=== PATIENT | female | born 1945 | race Caucasian/White ===

== ENCOUNTER 2017-01-22 10:55 | Inpatient (IN) ==
[2017-01-22] MEDS ORDERED: SODIUM CHLORIDE 0.9% 500 ML IV STA (11:14)
[2017-01-22] MEDS ORDERED: cefTRIAXone 1,000 MG in SODIUM CHLORIDE 0.9% 100 ML IV STA (11:14)
[2017-01-22] MEDS ORDERED: cefTRIAXone 1,000 MG VIAL ONE (11:47)
[2017-01-22 12:44] LABS: Basophils % 0.3 % (0.0-0.8); Hematocrit 32.3 VOL% (35.7-47.0); Hemoglobin 10.5 GM/DL (12.0-16.0); Immature Granulocytes % 0.5 %; Immature Granulocytes Absolute 0.02 #; Lymphocytes # 0.3 10*3/uL (1.4-4.0); Lymphocytes % 8.8 % (21.3-54.2); Mean Corpuscular HGB Conc 32.5 GM/DL (32-36); Mean Corpuscular Hemoglobin 31 PG (27-34); Mean Corpuscular Volume 94.7 FL (87-102); Monocytes # 0.4 10*3/uL (0.11-0.8); Monocytes % 11.2 % (1.7-12.7); Neutrophils % 79.2 % (38.7-73.9); Platelet Count 163 T/CUMM (130-400); Red Blood Count 3.41 MC/CUMM (3.8-5.5); Red Cell Distribution Width 12.8 % (9.3-17.3); White Blood Count 3.8 T/CUMM (4-12)
[2017-01-22] MEDS ORDERED: ACETAMINOPHEN 500 MG TABLET PO STA (12:45)
[2017-01-22] MEDS ORDERED: ACETAMINOPHEN 500 MG TABLET ONE (12:46)
[2017-01-22] MEDS ORDERED: ONDANSETRON 4 MG/2 ML VIAL IV PRN (12:47)
[2017-01-22] MEDS ORDERED: ACETAMINOPHEN 325 MG TABLET PO PRN (12:47)
[2017-01-22 12:55] LABS: Calcium 8.1 MG/DL (8.5-10.1); Osmolality,Calculated 292.4 MOS/KG (273-304); Potassium 4.6 MMOL/L (3.5-5.1)
[2017-01-22] MEDS ORDERED: ENOXAPARIN 40 MG/0.4 ML SYRINGE SUBCUT SCH (13:00)
[2017-01-22] MEDS: SODIUM CHLORIDE 0.9% 1,000 ML IV SCH (17:00)
[2017-01-22] MEDS ORDERED: NITROGLYCERIN SL 0.4 MG TABLET SL PRN (17:52)
[2017-01-22] MEDS: TOLTERODINE 2 MG TABLET PO SCH (21:16)
[2017-01-22] MEDS: DIVALPROEX ER 500 MG TABLET PO SCH (21:17)
[2017-01-22] MEDS: DOCUSATE SODIUM 100 MG CAPSULE PO SCH (21:17)
[2017-01-22] MEDS: CLORAZEPATE 3.75 MG TABLET PO SCH (21:17)
[2017-01-22] MEDS: ALLOPURINOL 100 MG TABLET PO SCH (21:53)
[2017-01-23] MEDS: SODIUM CHLORIDE 0.9% 1,000 ML IV SCH ×4 (02:48→21:00)
[2017-01-23 04:49] LABS: Basophils % 0.8 % (0.0-0.8); Eosinophils % 0.8 % (0.00-10.9); Hematocrit 26.4 VOL% (35.7-47.0); Hemoglobin 8.7 GM/DL (12.0-16.0); Immature Granulocytes % 0.6 %; Immature Granulocytes Absolute 0.02 #; Lymphocytes # 0.6 10*3/uL (1.4-4.0); Lymphocytes % 16.7 % (21.3-54.2); Mean Corpuscular Hemoglobin 31 PG (27-34); Mean Platelet Volume 10.6 FL (9.6-12.0); Monocytes # 0.6 10*3/uL (0.11-0.8); Monocytes % 17.2 % (1.7-12.7); NRBC # 0.02 10*3/uL; Neutrophils # 2.3 10*3/uL (1.4-7.4); Neutrophils % 63.9 % (38.7-73.9); Platelet Count 146 T/CUMM (130-400); Red Blood Count 2.81 MC/CUMM (3.8-5.5); Red Cell Distribution Width 12.6 % (9.3-17.3); White Blood Count 3.5 T/CUMM (4-12)
[2017-01-23 05:44] LABS: Calcium 7.7 MG/DL (8.5-10.1); Osmolality,Calculated 292.3 MOS/KG (273-304); Potassium 4.3 MMOL/L (3.5-5.1)
[2017-01-23 05:50] LABS: Eosinophils 1 % (0-10); Hypochromasia 1+; Lymphocytes 24 % (20-55); Microcytosis 1+; Platelet Estimate Adequate; Segmented Neutrophils 65 % (50-85); Total Cells Counted 100
[2017-01-23] MEDS ORDERED: LEVOFLOXACIN INJ 500 MG in PREMIX 1 EACH IV ONE (07:30)
[2017-01-23] MEDS: PANTOPRAZOLE 40 MG TABLET PO SCH (09:54)
[2017-01-23] MEDS: CLORAZEPATE 3.75 MG TABLET PO SCH ×2 (09:54→21:47)
[2017-01-23] MEDS: DILTIAZEM CD 240 MG CAPSULE PO SCH (09:54)
[2017-01-23] MEDS: TOLTERODINE 2 MG TABLET PO SCH ×2 (09:55→21:48)
[2017-01-23] MEDS: DOCUSATE SODIUM 100 MG CAPSULE PO SCH ×2 (09:55→21:48)
[2017-01-23] MEDS: CLOPIDOGREL 75 MG TABLET PO SCH (09:55)
[2017-01-23] MEDS: ENOXAPARIN 30 MG/0.3 ML SYRINGE SUBCUT SCH (14:30)
[2017-01-23] MEDS: cefTRIAXone 1,000 MG in SYRINGE 1 EACH IV SCH (14:31)
[2017-01-23] MEDS: DIVALPROEX ER 500 MG TABLET PO SCH (21:48)
[2017-01-23] MEDS: ALLOPURINOL 100 MG TABLET PO SCH (21:48)
[2017-01-24] MEDS: SODIUM CHLORIDE 0.9% 1,000 ML IV SCH ×3 (03:43→13:00)
[2017-01-24 05:49] LABS: Basophils % 0.6 % (0.0-0.8); Eosinophils # 0.1 10*3/uL (0.0-0.87); Eosinophils % 2.2 % (0.00-10.9); Hematocrit 27.1 VOL% (35.7-47.0); Hemoglobin 8.8 GM/DL (12.0-16.0); Immature Granulocytes % 0.6 %; Immature Granulocytes Absolute 0.02 #; Lymphocytes # 0.7 10*3/uL (1.4-4.0); Lymphocytes % 22.2 % (21.3-54.2); Mean Corpuscular HGB Conc 32.5 GM/DL (32-36); Mean Corpuscular Hemoglobin 31 PG (27-34); Mean Corpuscular Volume 95.4 FL (87-102); Mean Platelet Volume 10.4 FL (9.6-12.0); Monocytes # 0.4 10*3/uL (0.11-0.8); Neutrophils # 1.9 10*3/uL (1.4-7.4); Neutrophils % 60.4 % (38.7-73.9); Platelet Count 162 T/CUMM (130-400); Red Blood Count 2.84 MC/CUMM (3.8-5.5); Red Cell Distribution Width 12.7 % (9.3-17.3); White Blood Count 3.2 T/CUMM (4-12)
[2017-01-24 06:08] LABS: Calcium 7.9 MG/DL (8.5-10.1); Osmolality,Calculated 290.1 MOS/KG (273-304); Potassium 4.6 MMOL/L (3.5-5.1)
[2017-01-24] MEDS ORDERED: LEVOFLOXACIN INJ 250 MG in PREMIX 1 EACH IV SCH (09:00)
[2017-01-24] MEDS: CLOPIDOGREL 75 MG TABLET PO SCH (09:48)
[2017-01-24] MEDS: DOCUSATE SODIUM 100 MG CAPSULE PO SCH ×2 (09:48→20:27)
[2017-01-24] MEDS: DILTIAZEM CD 240 MG CAPSULE PO SCH (09:48)
[2017-01-24] MEDS: CLORAZEPATE 3.75 MG TABLET PO SCH ×2 (09:48→20:27)
[2017-01-24] MEDS: PANTOPRAZOLE 40 MG TABLET PO SCH (09:48)
[2017-01-24] MEDS: TOLTERODINE 2 MG TABLET PO SCH ×2 (09:51→20:27)
[2017-01-24] MEDS: ENOXAPARIN 30 MG/0.3 ML SYRINGE SUBCUT SCH (15:08)
[2017-01-24] MEDS: cefTRIAXone 1,000 MG in SYRINGE 1 EACH IV SCH (15:08)
[2017-01-24] MEDS: TRIAMTERENE/HCTZ 37.5-25 MG TABLET PO SCH (17:58)
[2017-01-24] MEDS: ALLOPURINOL 100 MG TABLET PO SCH (20:27)
[2017-01-24] MEDS: DIVALPROEX ER 500 MG TABLET PO SCH (20:28)
[2017-01-25] MEDS: SODIUM CHLORIDE 0.9% 1,000 ML IV SCH ×2 (01:59→16:29)
[2017-01-25] MEDS: CLORAZEPATE 3.75 MG TABLET PO SCH ×2 (09:55→20:55)
[2017-01-25] MEDS: DILTIAZEM CD 240 MG CAPSULE PO SCH (09:55)
[2017-01-25] MEDS: ENOXAPARIN 30 MG/0.3 ML SYRINGE SUBCUT SCH (09:55)
[2017-01-25] MEDS: TRIAMTERENE/HCTZ 37.5-25 MG TABLET PO SCH (09:55)
[2017-01-25] MEDS: CLOPIDOGREL 75 MG TABLET PO SCH (09:55)
[2017-01-25] MEDS: PANTOPRAZOLE 40 MG TABLET PO SCH (09:55)
[2017-01-25] MEDS: DOCUSATE SODIUM 100 MG CAPSULE PO SCH ×2 (09:55→20:55)
[2017-01-25] MEDS: cefTRIAXone 1,000 MG in SYRINGE 1 EACH IV SCH (09:56)
[2017-01-25] MEDS: TOLTERODINE 2 MG TABLET PO SCH ×2 (09:59→20:55)
[2017-01-25] MEDS: ALLOPURINOL 100 MG TABLET PO SCH (20:55)
[2017-01-25] MEDS: DIVALPROEX ER 500 MG TABLET PO SCH (20:55)
[2017-01-26] MEDS: SODIUM CHLORIDE 0.9% 1,000 ML IV SCH ×2 (06:00→20:35)
[2017-01-26] MEDS: cefTRIAXone 1,000 MG in SYRINGE 1 EACH IV SCH (08:52)
[2017-01-26] MEDS: CLORAZEPATE 3.75 MG TABLET PO SCH ×2 (08:54→20:58)
[2017-01-26] MEDS: DOCUSATE SODIUM 100 MG CAPSULE PO SCH ×2 (08:54→20:58)
[2017-01-26] MEDS: CLOPIDOGREL 75 MG TABLET PO SCH (08:54)
[2017-01-26] MEDS: TOLTERODINE 2 MG TABLET PO SCH ×2 (08:54→20:58)
[2017-01-26] MEDS: DILTIAZEM CD 240 MG CAPSULE PO SCH (08:55)
[2017-01-26] MEDS: TRIAMTERENE/HCTZ 37.5-25 MG TABLET PO SCH (08:55)
[2017-01-26] MEDS: PANTOPRAZOLE 40 MG TABLET PO SCH (08:56)
[2017-01-26] MEDS: ENOXAPARIN 30 MG/0.3 ML SYRINGE SUBCUT SCH (08:56)
[2017-01-26] MEDS: ALLOPURINOL 100 MG TABLET PO SCH (20:58)
[2017-01-26] MEDS: DIVALPROEX ER 500 MG TABLET PO SCH (20:59)
[2017-01-27] MEDS: cefTRIAXone 1,000 MG in SYRINGE 1 EACH IV SCH (09:19)
[2017-01-27] MEDS: TOLTERODINE 2 MG TABLET PO SCH (09:19)
[2017-01-27] MEDS: DOCUSATE SODIUM 100 MG CAPSULE PO SCH (09:20)
[2017-01-27] MEDS: PANTOPRAZOLE 40 MG TABLET PO SCH (09:20)
[2017-01-27] MEDS: CLOPIDOGREL 75 MG TABLET PO SCH (09:20)
[2017-01-27] MEDS: DILTIAZEM CD 240 MG CAPSULE PO SCH (09:20)
[2017-01-27] MEDS: TRIAMTERENE/HCTZ 37.5-25 MG TABLET PO SCH (09:20)
[2017-01-27] MEDS: CLORAZEPATE 3.75 MG TABLET PO SCH (09:20)
[2017-01-27] MEDS: ENOXAPARIN 30 MG/0.3 ML SYRINGE SUBCUT SCH (09:20)
[2017-01-27 12:19] VITALS: BP 183/84
== END 2017-01-27 12:07 | disposition home or self-care (01) | DRG 872 ==
LOC: N.EDINP 10:55 → N.ED 10:55 → N.2E 18:45
PROVIDERS: ADMIT Family Medicine; ATTEND Family Medicine

== ENCOUNTER 2017-03-01 19:03 | Inpatient (IN) ==
[2017-03-01] MEDS ORDERED: SODIUM CHLORIDE 0.9% 1,000 ML IV STA (21:43)
[2017-03-01] MEDS ORDERED: HYDROmorphone 2 MG/1 ML VIAL IV STA (21:43)
[2017-03-01] MEDS ORDERED: ONDANSETRON 4 MG/2 ML VIAL IV STA (21:43)
[2017-03-01] MEDS ORDERED: cefTRIAXone 1,000 MG in SODIUM CHLORIDE 0.9% 100 ML IV STA (21:50)
[2017-03-01 21:54] LABS: Basophils % 0.4 % (0.0-0.8); Eosinophils # 0.1 10*3/uL (0.0-0.87); Eosinophils % 1.5 % (0.00-10.9); Hematocrit 32.1 VOL% (35.7-47.0); Hemoglobin 10.3 GM/DL (12.0-16.0); Immature Granulocytes % 0.6 %; Immature Granulocytes Absolute 0.03 #; Lymphocytes # 1.2 10*3/uL (1.4-4.0); Lymphocytes % 25.5 % (21.3-54.2); Mean Corpuscular HGB Conc 32.1 GM/DL (32-36); Mean Corpuscular Hemoglobin 31 PG (27-34); Mean Platelet Volume 10.8 FL (9.6-12.0); Monocytes # 0.3 10*3/uL (0.11-0.8); Monocytes % 6.1 % (1.7-12.7); Neutrophils # 3.1 10*3/uL (1.4-7.4); Neutrophils % 65.9 % (38.7-73.9); Platelet Count 219 T/CUMM (130-400); Red Blood Count 3.38 MC/CUMM (3.8-5.5); Red Cell Distribution Width 13.2 % (9.3-17.3); White Blood Count 4.7 T/CUMM (4-12)
[2017-03-01 22:17] LABS: Lactic Acid 0.7 MMOL/L (0.4-2.0)
[2017-03-01 22:18] LABS: Alanine Aminotransferase 10 U/L (13-56); Albumin 3.4 G/DL (3.4-5.0); Alkaline Phosphatase 59 U/L (45-117); Amylase 50 U/L (25-115); Aspartate Amino Transferase 19 U/L (0-37); Bilirubin,Total < 0.39 MG/DL (0.2-1.0); Blood Urea Nitrogen 53 MG/DL (7-18); Calcium 8.6 MG/DL (8.5-10.1); Glucose 95 MG/DL (74-106); Magnesium 2.3 MG/DL (1.8-2.4); Osmolality,Calculated 294.3 MOS/KG (273-304); Potassium 5.3 MMOL/L (3.5-5.1); Sodium 141 MMOL/L (136-145); Total Protein 6.7 G/DL (6.4-8.3); Troponin I Only < 0.015 NG/ML (0.00-0.045)
[2017-03-01 22:28] LABS: Apearance,Urine CLOUDY (Clear); Bilirubin,Urine Negative (Negative); Blood, Urine Negative (Negative); Glucose,Urine (UA) Negative (Negative); Ketones,Urine Negative (Negative); Nitrite,Urine Negative (Negative); Protein,Urine 30 MG/DL; Squamous Epithelial Cell,Urine Occasional /HPF (0-10); Urine Color Yellow (Yellow); Urine Specific Gravity 1.013 (1.001-1.035); Urine Urobilinogen < 2.0 EU/DL (0.2-1.0); WBC,Urine 574 /HPF (0-6)
[2017-03-01] MEDS ORDERED: cefTRIAXone 1,000 MG VIAL ONE (22:43)
[2017-03-01] MEDS ORDERED: ONDANSETRON 4 MG/2 ML VIAL ONE (22:43)
[2017-03-01] MEDS ORDERED: HYDROmorphone 2 MG/1 ML VIAL ONE (22:44)
[2017-03-02] MEDS ORDERED: ONDANSETRON 4 MG/2 ML VIAL ONE (00:23)
[2017-03-02] MEDS ORDERED: HYDROmorphone 2 MG/1 ML VIAL IV ONE (00:23)
[2017-03-02] MEDS ORDERED: ONDANSETRON 4 MG/2 ML VIAL IV STA (00:38)
[2017-03-02] MEDS ORDERED: ONDANSETRON 4 MG/2 ML VIAL IV PRN (01:00)
[2017-03-02] MEDS ORDERED: HYDROmorphone 2 MG/1 ML VIAL IV PRN (01:00)
[2017-03-02] MEDS ORDERED: ACETAMINOPHEN 325 MG TABLET PO PRN (01:00)
[2017-03-02] MEDS: SODIUM CHLORIDE 0.9% 1,000 ML IV SCH ×3 (01:53→19:24)
[2017-03-02] MEDS: cefTRIAXone 1,000 MG in SYRINGE 1 EACH IV SCH (01:56)
[2017-03-02] MEDS ORDERED: LEVOFLOXACIN INJ 250 MG in PREMIX 1 EACH IV SCH (02:00)
[2017-03-02 07:12] LABS: Eosinophils # 0.1 10*3/uL (0.0-0.87); Eosinophils % 2.8 % (0.00-10.9); Hematocrit 26.8 VOL% (35.7-47.0); Hemoglobin 8.5 GM/DL (12.0-16.0); Immature Granulocytes % 0.3 %; Immature Granulocytes Absolute 0.01 #; Lymphocytes # 0.9 10*3/uL (1.4-4.0); Lymphocytes % 27.8 % (21.3-54.2); Mean Corpuscular HGB Conc 31.7 GM/DL (32-36); Mean Corpuscular Hemoglobin 31 PG (27-34); Mean Corpuscular Volume 96.4 FL (87-102); Mean Platelet Volume 10.9 FL (9.6-12.0); Monocytes # 0.4 10*3/uL (0.11-0.8); Monocytes % 11.3 % (1.7-12.7); Neutrophils # 1.9 10*3/uL (1.4-7.4); Neutrophils % 57.8 % (38.7-73.9); Platelet Count 164 T/CUMM (130-400); Red Blood Count 2.78 MC/CUMM (3.8-5.5); Red Cell Distribution Width 13.2 % (9.3-17.3); White Blood Count 3.2 T/CUMM (4-12)
[2017-03-02 07:31] LABS: Alanine Aminotransferase < 9 U/L (13-56); Albumin 2.5 G/DL (3.4-5.0); Alkaline Phosphatase 44 U/L (45-117); Aspartate Amino Transferase 10 U/L (0-37); Blood Urea Nitrogen 49 MG/DL (7-18); Calcium 7.5 MG/DL (8.5-10.1); Glucose 73 MG/DL (74-106); Magnesium 2.2 MG/DL (1.8-2.4); Osmolality,Calculated 297.8 MOS/KG (273-304); Potassium 4.4 MMOL/L (3.5-5.1); Sodium 144 MMOL/L (136-145); Total Protein 5.3 G/DL (6.4-8.3)
[2017-03-02] MEDS ORDERED: ONDANSETRON 4 MG TABLET PO PRN (07:44)
[2017-03-02] MEDS ORDERED: NITROGLYCERIN SL 0.4 MG TABLET SL PRN (07:44)
[2017-03-02] MEDS: DILTIAZEM CD 240 MG CAPSULE PO SCH (08:24)
[2017-03-02] MEDS: TRIAMTERENE/HCTZ 37.5-25 MG TABLET PO SCH (08:25)
[2017-03-02] MEDS: CLORAZEPATE 3.75 MG TABLET PO SCH ×2 (08:25→21:46)
[2017-03-02] MEDS: CLOPIDOGREL 75 MG TABLET PO SCH (08:25)
[2017-03-02] MEDS: FLUoxetine 20 MG CAPSULE PO SCH (08:25)
[2017-03-02] MEDS: DOCUSATE SODIUM 100 MG CAPSULE PO SCH ×2 (08:25→21:45)
[2017-03-02] MEDS: ALLOPURINOL 100 MG TABLET PO SCH (08:25)
[2017-03-02] MEDS: PANTOPRAZOLE 40 MG TABLET PO SCH (08:25)
[2017-03-02] MEDS ORDERED: FENOFIBRATE 48 MG TABLET PO SCH (21:00)
[2017-03-02] MEDS ORDERED: DIVALPROEX ER 500 MG TABLET PO SCH (21:00)
[2017-03-03] MEDS: SODIUM CHLORIDE 0.9% 1,000 ML IV SCH (03:22)
[2017-03-03] MEDS: CLOPIDOGREL 75 MG TABLET PO SCH (09:58)
[2017-03-03] MEDS: DILTIAZEM CD 240 MG CAPSULE PO SCH (09:58)
[2017-03-03] MEDS: CLORAZEPATE 3.75 MG TABLET PO SCH (09:58)
[2017-03-03] MEDS: FLUoxetine 20 MG CAPSULE PO SCH (09:58)
[2017-03-03] MEDS: TRIAMTERENE/HCTZ 37.5-25 MG TABLET PO SCH (09:58)
[2017-03-03] MEDS: cefTRIAXone 1,000 MG in SYRINGE 1 EACH IV SCH (09:58)
[2017-03-03] MEDS: ALLOPURINOL 100 MG TABLET PO SCH (09:58)
[2017-03-03] MEDS: PANTOPRAZOLE 40 MG TABLET PO SCH (09:58)
[2017-03-03] MEDS: DOCUSATE SODIUM 100 MG CAPSULE PO SCH (09:58)
[2017-03-03 13:39] VITALS: BP 166/89
== END 2017-03-03 10:45 | disposition home or self-care (01) | DRG 690 ==
LOC: N.ED 19:03 → N.EDINP 23:39 → N.2E 03-02 00:13
PROVIDERS: ADMIT Family Medicine; ATTEND Family Medicine

== ENCOUNTER 2017-05-13 12:29 | Observation (INO) ==
[2017-05-13] MEDS ORDERED: ASPIRIN 325 MG TABLET PO STA (13:44)
[2017-05-13] MEDS ORDERED: ASPIRIN 325 MG TABLET ONE (14:14)
[2017-05-13 14:44] LABS: Alanine Aminotransferase 11 U/L (13-56); Albumin 3.3 G/DL (3.4-5.0); Alkaline Phosphatase 63 U/L (45-117); Aspartate Amino Transferase 18 U/L (0-37); Bilirubin,Total < 0.39 MG/DL (0.2-1.0); Blood Urea Nitrogen 56 MG/DL (7-18); Calcium 8.4 MG/DL (8.5-10.1); Glucose 79 MG/DL (74-106); Osmolality,Calculated 293.4 MOS/KG (273-304); Sodium 140 MMOL/L (136-145); Total Protein 6.7 G/DL (6.4-8.3)
[2017-05-13] MEDS ORDERED: ENOXAPARIN 30 MG/0.3 ML SYRINGE SUBCUT STA (15:16)
[2017-05-13 15:18] LABS: Basophils % 0.7 % (0.0-0.8); Eosinophils # 0.1 10*3/uL (0.0-0.87); Eosinophils % 2.4 % (0.00-10.9); Hematocrit 32.8 VOL% (35.7-47.0); Hemoglobin 10.6 GM/DL (12.0-16.0); Immature Granulocytes % 0.5 %; Immature Granulocytes Absolute 0.02 #; Lymphocytes # 1.2 10*3/uL (1.4-4.0); Mean Corpuscular HGB Conc 32.3 GM/DL (32-36); Mean Corpuscular Hemoglobin 31 PG (27-34); Mean Corpuscular Volume 96.5 FL (87-102); Mean Platelet Volume 10.7 FL (9.6-12.0); Monocytes # 0.4 10*3/uL (0.11-0.8); Monocytes % 8.9 % (1.7-12.7); Neutrophils # 2.5 10*3/uL (1.4-7.4); Neutrophils % 59.5 % (38.7-73.9); Platelet Count 190 T/CUMM (130-400); Red Cell Distribution Width 13.6 % (9.3-17.3); White Blood Count 4.1 T/CUMM (4-12)
[2017-05-13] MEDS ORDERED: ENOXAPARIN 60 MG/0.6 ML SYRINGE ONE (15:22)
[2017-05-13] MEDS ORDERED: ONDANSETRON 4 MG/2 ML VIAL IV PRN (16:38)
[2017-05-13] MEDS ORDERED: ACETAMINOPHEN 325 MG TABLET PO PRN (16:38)
[2017-05-13] MEDS ORDERED: NITROGLYCERIN SL 0.4 MG TABLET SL STA (16:38)
[2017-05-13 20:30] LABS: Apearance,Urine CLEAR (Clear); Bilirubin,Urine Negative (Negative); Blood, Urine Small mg/dL (Negative); Glucose,Urine (UA) 50 mg/dL (Negative); Ketones,Urine Negative (Negative); Mucus,Urine Occasional /LPF (Occasional); Nitrite,Urine Negative (Negative); Protein,Urine 100 MG/DL; RBC,Urine 1 /HPF (0-4); Squamous Epithelial Cell,Urine Occasional /HPF (0-10); Urine Color Straw (Yellow); Urine Urobilinogen < 2.0 EU/DL (0.2-1.0); WBC,Urine <1 /HPF (0-6)
[2017-05-13] MEDS: DOCUSATE SODIUM 100 MG CAPSULE PO SCH (21:15)
[2017-05-14 05:40] LABS: Calcium 8.2 MG/DL (8.5-10.1); Osmolality,Calculated 297.1 MOS/KG (273-304); Potassium 5.3 MMOL/L (3.5-5.1); Risk Ratio 2.77; Thyroid Stimulating Hormone 4.2 uIU/ml (0.358-3.74); VLDL CHOLESTEROL 15.6 MG/DL
[2017-05-14 05:50] LABS: Basophils % 0.8 % (0.0-0.8); Eosinophils # 0.1 10*3/uL (0.0-0.87); Eosinophils % 4.6 % (0.00-10.9); Hematocrit 29.3 VOL% (35.7-47.0); Hemoglobin 9.6 GM/DL (12.0-16.0); Immature Granulocytes % 0.4 %; Immature Granulocytes Absolute 0.01 #; Mean Corpuscular HGB Conc 32.8 GM/DL (32-36); Mean Corpuscular Hemoglobin 31 PG (27-34); Mean Corpuscular Volume 94.5 FL (87-102); Mean Platelet Volume 11.4 FL (9.6-12.0); Monocytes # 0.3 10*3/uL (0.11-0.8); Monocytes % 10.8 % (1.7-12.7); Neutrophils # 1.2 10*3/uL (1.4-7.4); Neutrophils % 44.4 % (38.7-73.9); Platelet Count 177 T/CUMM (130-400); Red Cell Distribution Width 13.4 % (9.3-17.3); White Blood Count 2.6 T/CUMM (4-12)
[2017-05-14 06:21] LABS: Hypochromasia 1+; Ovalocytes Slight
[2017-05-14 06:22] LABS: Platelet Estimate Normal
[2017-05-14] MEDS ORDERED: AZELASTINE NASAL 137 MCG/SPRAY 30 ML BOTTLE BOTH NARES PRN (08:59)
[2017-05-14] MEDS ORDERED: ONDANSETRON 4 MG TABLET PO PRN (08:59)
[2017-05-14] MEDS ORDERED: NITROGLYCERIN SL 0.4 MG TABLET SL PRN (08:59)
[2017-05-14] MEDS ORDERED: ALLOPURINOL 100 MG TABLET PO SCH (09:00)
[2017-05-14] MEDS ORDERED: DILTIAZEM CD 240 MG CAPSULE PO SCH (09:00)
[2017-05-14] MEDS ORDERED: CLORAZEPATE 3.75 MG TABLET PO SCH (09:00)
[2017-05-14] MEDS ORDERED: FLUoxetine 20 MG CAPSULE PO SCH (09:00)
[2017-05-14] MEDS ORDERED: TRIAMTERENE/HCTZ 37.5-25 MG TABLET PO SCH (09:00)
[2017-05-14] MEDS ORDERED: CLOPIDOGREL 75 MG TABLET PO SCH (09:00)
[2017-05-14] MEDS ORDERED: PANTOPRAZOLE 40 MG TABLET PO SCH (09:00)
[2017-05-14] MEDS: DOCUSATE SODIUM 100 MG CAPSULE PO SCH (10:14)
[2017-05-14 16:18] VITALS: BP 178/75
[2017-05-14] MEDS ORDERED: FENOFIBRATE 48 MG TABLET PO SCH (21:00)
[2017-05-14] MEDS ORDERED: DIVALPROEX ER 500 MG TABLET PO SCH (21:00)
== END 2017-05-14 18:27 | disposition home or self-care (01) ==
LOC: N.EDINP 12:29 → N.ED 12:29 → N.TELEN 16:35
PROVIDERS: ADMIT Family Medicine; ATTEND Family Medicine

== ENCOUNTER 2017-07-22 14:10 | Observation (INO) ==
[2017-07-22] MEDS ORDERED: ACETAMINOPHEN 325 MG TABLET PO PRN (14:51)
[2017-07-22] MEDS ORDERED: ONDANSETRON 4 MG/2 ML VIAL IV PRN (14:51)
[2017-07-22] MEDS ORDERED: SODIUM CHLORIDE 0.45% 1,000 ML IV SCH (15:00)
[2017-07-22 15:38] LABS: Basophils % 0.3 % (0.0-0.8); Eosinophils % 0.8 % (0.00-10.9); Hematocrit 32.4 VOL% (35.7-47.0); Hemoglobin 10.4 GM/DL (12.0-16.0); Immature Granulocytes % 0.5 %; Immature Granulocytes Absolute 0.02 #; Lymphocytes % 25.6 % (21.3-54.2); Mean Corpuscular HGB Conc 32.1 GM/DL (32-36); Mean Corpuscular Hemoglobin 31 PG (27-34); Mean Corpuscular Volume 95.6 FL (87-102); Mean Platelet Volume 10.8 FL (9.6-12.0); Monocytes # 0.4 10*3/uL (0.11-0.8); Monocytes % 10.2 % (1.7-12.7); Neutrophils # 2.5 10*3/uL (1.4-7.4); Neutrophils % 62.6 % (38.7-73.9); Platelet Count 222 T/CUMM (130-400); Red Blood Count 3.39 MC/CUMM (3.8-5.5); Red Cell Distribution Width 12.9 % (9.3-17.3); White Blood Count 3.9 T/CUMM (4-12)
[2017-07-22 16:08] LABS: Albumin 3.1 G/DL (3.4-5.0); Bilirubin,Total 0.4 MG/DL (0.2-1.0); Calcium 8.7 MG/DL (8.5-10.1); Osmolality,Calculated 292.4 MOS/KG (273-304); Potassium 4.5 MMOL/L (3.5-5.1); Total Protein 7.1 G/DL (6.4-8.3)
[2017-07-22] MEDS ORDERED: DEXAMETHASONE 10 MG/1 ML VIAL IV STA (17:28)
[2017-07-22] MEDS ORDERED: LABETALOL 20 MG/4 ML SYRINGE IV PRN ×2 (19:12→19:20)
[2017-07-22] MEDS: DOCUSATE SODIUM 100 MG CAPSULE PO SCH (20:14)
[2017-07-22] MEDS ORDERED: ENOXAPARIN 30 MG/0.3 ML SYRINGE SUBCUT SCH (21:00)
[2017-07-23 05:50] LABS: Apearance,Urine CLEAR (Clear); Bacteria,Urine Many /HPF (Few); Bilirubin,Urine Negative (Negative); Blood, Urine Small mg/dL (Negative); Glucose,Urine (UA) Negative (Negative); Ketones,Urine Negative (Negative); Nitrite,Urine Positive (Negative); Protein,Urine 30 MG/DL; RBC,Urine 1 /HPF (0-4); Squamous Epithelial Cell,Urine Occasional /HPF (0-10); Urine Color Yellow (Yellow); Urine Urobilinogen < 2.0 EU/DL (0.2-1.0); WBC,Urine 32 /HPF (0-6)
[2017-07-23 08:08] VITALS: BP 162/87
[2017-07-23] MEDS ORDERED: PANTOPRAZOLE 40 MG TABLET PO SCH (09:00)
[2017-07-23] MEDS ORDERED: DEXAMETHASONE 4 MG/1 ML VIAL IV SCH (09:00)
[2017-07-23] MEDS: DOCUSATE SODIUM 100 MG CAPSULE PO SCH (09:04)
== END 2017-07-23 13:15 | disposition home or self-care (01) ==
LOC: N.2E 14:46 → INTOOBSV 14:46
PROVIDERS: ADMIT Family Medicine; ATTEND Family Medicine

== ENCOUNTER 2017-12-04 08:47 | Inpatient (IN) ==
[2017-12-04] MEDS ORDERED: SODIUM CHLORIDE 0.9% 1,000 ML IV STA (09:56)
[2017-12-04] MEDS ORDERED: ONDANSETRON 4 MG/2 ML VIAL IV STA (09:56)
[2017-12-04 11:11] LABS: Basophils % 0.4 % (0.0-0.8); Eosinophils % 0.6 % (0.00-10.9); Hematocrit 30.6 VOL% (35.7-47.0); Hemoglobin 9.5 GM/DL (12.0-16.0); Immature Granulocytes % 0.4 %; Immature Granulocytes Absolute 0.02 #; Lymphocytes # 0.8 10*3/uL (1.4-4.0); Lymphocytes % 17.2 % (21.3-54.2); Mean Corpuscular Hemoglobin 30 PG (27-34); Mean Corpuscular Volume 95.3 FL (87-102); Mean Platelet Volume 10.2 FL (9.6-12.0); Monocytes # 0.5 10*3/uL (0.11-0.8); Monocytes % 9.4 % (1.7-12.7); Neutrophils # 3.5 10*3/uL (1.4-7.4); Platelet Count 252 T/CUMM (130-400); Red Blood Count 3.21 MC/CUMM (3.8-5.5); Red Cell Distribution Width 12.3 % (9.3-17.3); White Blood Count 4.9 T/CUMM (4-12)
[2017-12-04 11:21] LABS: Albumin 3.1 G/DL (3.4-5.0); Bilirubin,Total 0.4 MG/DL (0.2-1.0); Calcium 9.3 MG/DL (8.5-10.1); Osmolality,Calculated 292.4 MOS/KG (273-304); Potassium 3.7 MMOL/L (3.5-5.1); Total Protein 6.8 G/DL (6.4-8.3)
[2017-12-04 12:17] LABS: Apearance,Urine Slightly Hazy (Clear); Bacteria,Urine Many /HPF (Few); Bilirubin,Urine Negative (Negative); Blood, Urine Small mg/dL (Negative); Glucose,Urine (UA) Negative (Negative); Hyaline Casts,Urine 3 /LPF (0-3); Ketones,Urine Negative (Negative); Nitrite,Urine Positive (Negative); Protein,Urine 30 MG/DL; RBC,Urine 4 /HPF (0-4); Squamous Epithelial Cell,Urine Occasional /HPF (0-10); Urine Color Yellow (Yellow); Urine Urobilinogen < 2.0 EU/DL (0.2-1.0); WBC,Urine 66 /HPF (0-6)
[2017-12-04] MEDS ORDERED: ONDANSETRON 4 MG/2 ML VIAL IV PRN (12:56)
[2017-12-04] MEDS ORDERED: ACETAMINOPHEN 325 MG TABLET PO PRN (12:56)
[2017-12-04] MEDS ORDERED: NITROGLYCERIN SL 0.4 MG TABLET SL PRN (12:59)
[2017-12-04] MEDS ORDERED: DEXTROSE 5% NACL 0.9% 1,000 ML IV SCH (13:00)
[2017-12-04] MEDS ORDERED: INFLUENZA VIRUS VACCINE 0.5 ML SYRINGE IM ONE (15:38)
[2017-12-04] MEDS ORDERED: ONDANSETRON 4 MG TABLET PO PRN (16:15)
[2017-12-04] MEDS: SODIUM CHLORIDE 0.9% 1,000 ML IV SCH (19:50)
[2017-12-04] MEDS ORDERED: TOLTERODINE 1 MG PO SCH (21:00)
[2017-12-04] MEDS: DOCUSATE SODIUM 100 MG CAPSULE PO SCH (21:02)
[2017-12-04] MEDS: CLORAZEPATE 3.75 MG TABLET PO SCH (21:02)
[2017-12-04] MEDS: FENOFIBRATE 48 MG TABLET PO SCH (21:02)
[2017-12-04] MEDS: ENOXAPARIN 30 MG/0.3 ML SYRINGE SUBCUT SCH (21:03)
[2017-12-04] MEDS: metroNIDAZOLE 500 MG TABLET PO SCH (22:28)
[2017-12-05] MEDS: SODIUM CHLORIDE 0.9% 1,000 ML IV SCH ×3 (04:25→23:39)
[2017-12-05] MEDS: metroNIDAZOLE 500 MG TABLET PO SCH ×3 (05:09→22:07)
[2017-12-05 06:21] LABS: Basophils % 0.3 % (0.0-0.8); Eosinophils # 0.1 10*3/uL (0.0-0.87); Eosinophils % 2.6 % (0.00-10.9); Hematocrit 26.2 VOL% (35.7-47.0); Hemoglobin 8.2 GM/DL (12.0-16.0); Immature Granulocytes % 0.3 %; Immature Granulocytes Absolute 0.01 #; Lymphocytes % 28.4 % (21.3-54.2); Mean Corpuscular HGB Conc 31.3 GM/DL (32-36); Mean Corpuscular Hemoglobin 30 PG (27-34); Mean Corpuscular Volume 95.3 FL (87-102); Mean Platelet Volume 10.1 FL (9.6-12.0); Monocytes # 0.4 10*3/uL (0.11-0.8); Monocytes % 11.2 % (1.7-12.7); Neutrophils % 57.2 % (38.7-73.9); Platelet Count 220 T/CUMM (130-400); Red Blood Count 2.75 MC/CUMM (3.8-5.5); Red Cell Distribution Width 12.4 % (9.3-17.3); White Blood Count 3.5 T/CUMM (4-12)
[2017-12-05 06:52] LABS: Calcium 8.7 MG/DL (8.5-10.1); Osmolality,Calculated 294.1 MOS/KG (273-304); Potassium 3.4 MMOL/L (3.5-5.1)
[2017-12-05] MEDS ORDERED: TRIAMTERENE/HCTZ 37.5-25 MG TABLET PO SCH (09:00)
[2017-12-05] MEDS: CLORAZEPATE 3.75 MG TABLET PO SCH ×2 (09:32→20:44)
[2017-12-05] MEDS: CLOPIDOGREL 75 MG TABLET PO SCH (09:33)
[2017-12-05] MEDS: DILTIAZEM CD 240 MG CAPSULE PO SCH (09:33)
[2017-12-05] MEDS: ASPIRIN EC 81 MG TABLET PO SCH (09:33)
[2017-12-05] MEDS: PANTOPRAZOLE 40 MG TABLET PO SCH (09:33)
[2017-12-05] MEDS: FLUoxetine 20 MG CAPSULE PO SCH (09:43)
[2017-12-05] MEDS: DOCUSATE SODIUM 100 MG CAPSULE PO SCH ×2 (09:43→20:45)
[2017-12-05] MEDS: ALLOPURINOL 100 MG TABLET PO SCH (09:43)
[2017-12-05] MEDS: FENOFIBRATE 48 MG TABLET PO SCH (20:44)
[2017-12-05] MEDS: ENOXAPARIN 30 MG/0.3 ML SYRINGE SUBCUT SCH (20:44)
[2017-12-06 04:16] LABS: Hematocrit 26.1 VOL% (35.7-47.0); Hemoglobin 8.1 GM/DL (12.0-16.0); Mean Corpuscular Hemoglobin 29 PG (27-34); Mean Corpuscular Volume 94.6 FL (87-102); Platelet Count 222 T/CUMM (130-400); Red Blood Count 2.76 MC/CUMM (3.8-5.5); Red Cell Distribution Width 12.6 % (9.3-17.3); White Blood Count 3.9 T/CUMM (4-12)
[2017-12-06 04:17] LABS: Basophils % 0.5 % (0.0-0.8); Eosinophils # 0.1 10*3/uL (0.0-0.87); Eosinophils % 2.6 % (0.00-10.9); Immature Granulocytes % 0.5 %; Immature Granulocytes Absolute 0.02 #; Lymphocytes # 0.9 10*3/uL (1.4-4.0); Lymphocytes % 22.8 % (21.3-54.2); Mean Platelet Volume 10.1 FL (9.6-12.0); Monocytes # 0.4 10*3/uL (0.11-0.8); Monocytes % 11.1 % (1.7-12.7); Neutrophils # 2.4 10*3/uL (1.4-7.4); Neutrophils % 62.5 % (38.7-73.9)
[2017-12-06 04:40] LABS: Alanine Aminotransferase < 9 U/L (13-56); Albumin 2.3 G/DL (3.4-5.0); Alkaline Phosphatase 53 U/L (45-117); Aspartate Amino Transferase 9 U/L (0-37); Blood Urea Nitrogen 40 MG/DL (7-18); Calcium 8.1 MG/DL (8.5-10.1); Glucose 77 MG/DL (74-106); Osmolality,Calculated 296.7 MOS/KG (273-304); Potassium 3.2 MMOL/L (3.5-5.1); Sodium 145 MMOL/L (136-145); Total Protein 5.2 G/DL (6.4-8.3)
[2017-12-06] MEDS: metroNIDAZOLE 500 MG TABLET PO SCH ×2 (05:15→14:45)
[2017-12-06] MEDS: ALLOPURINOL 100 MG TABLET PO SCH (10:18)
[2017-12-06] MEDS: ASPIRIN EC 81 MG TABLET PO SCH (10:18)
[2017-12-06] MEDS: DILTIAZEM CD 240 MG CAPSULE PO SCH (10:18)
[2017-12-06] MEDS: PANTOPRAZOLE 40 MG TABLET PO SCH (10:18)
[2017-12-06] MEDS: CLORAZEPATE 3.75 MG TABLET PO SCH ×2 (10:18→20:04)
[2017-12-06] MEDS: CLOPIDOGREL 75 MG TABLET PO SCH (10:18)
[2017-12-06] MEDS: FLUoxetine 20 MG CAPSULE PO SCH (10:18)
[2017-12-06] MEDS: DOCUSATE SODIUM 100 MG CAPSULE PO SCH ×2 (10:19→20:04)
[2017-12-06] MEDS: TOLTERODINE 2 MG TABLET PO SCH ×2 (10:57→20:04)
[2017-12-06] MEDS: CHOLESTYRAMINE 4 GM PACK PO SCH ×2 (14:51→20:04)
[2017-12-06] MEDS: SODIUM CHLORIDE 0.9% 1,000 ML IV SCH (16:37)
[2017-12-06] MEDS: cefTRIAXone 1,000 MG in SYRINGE 1 EACH IV SCH (16:40)
[2017-12-06] MEDS: VANCOMYCIN 50 MG/ML 60 ML/BOTTLE PO SCH ×2 (17:19→23:26)
[2017-12-06] MEDS: POTASSIUM CHLORIDE 20 MEQ TABLET PO PRN ×4 (18:59→23:25)
[2017-12-06] MEDS: FENOFIBRATE 48 MG TABLET PO SCH (20:04)
[2017-12-06] MEDS: ENOXAPARIN 30 MG/0.3 ML SYRINGE SUBCUT SCH (20:05)
[2017-12-07] MEDS: SODIUM CHLORIDE 0.9% 1,000 ML IV SCH ×3 (02:40→22:20)
[2017-12-07] MEDS: VANCOMYCIN 50 MG/ML 60 ML/BOTTLE PO SCH ×4 (06:04→23:39)
[2017-12-07] MEDS: CHOLESTYRAMINE 4 GM PACK PO SCH ×2 (09:09→21:43)
[2017-12-07] MEDS: FLUoxetine 20 MG CAPSULE PO SCH (09:12)
[2017-12-07] MEDS: DILTIAZEM CD 240 MG CAPSULE PO SCH (09:13)
[2017-12-07] MEDS: PANTOPRAZOLE 40 MG TABLET PO SCH (09:13)
[2017-12-07] MEDS: ALLOPURINOL 100 MG TABLET PO SCH (09:13)
[2017-12-07] MEDS: DOCUSATE SODIUM 100 MG CAPSULE PO SCH ×2 (09:13→21:42)
[2017-12-07] MEDS: CLOPIDOGREL 75 MG TABLET PO SCH (09:13)
[2017-12-07] MEDS: ASPIRIN EC 81 MG TABLET PO SCH (09:13)
[2017-12-07] MEDS: TOLTERODINE 2 MG TABLET PO SCH ×2 (09:13→21:43)
[2017-12-07] MEDS: CLORAZEPATE 3.75 MG TABLET PO SCH ×2 (09:13→21:42)
[2017-12-07 10:10] LABS: Calcium 8.3 MG/DL (8.5-10.1); Osmolality,Calculated 294.6 MOS/KG (273-304); Potassium 4.4 MMOL/L (3.5-5.1)
[2017-12-07] MEDS: FENOFIBRATE 48 MG TABLET PO SCH (21:43)
[2017-12-07] MEDS: ENOXAPARIN 30 MG/0.3 ML SYRINGE SUBCUT SCH (21:43)
[2017-12-07] MEDS: cefTRIAXone 1,000 MG in SYRINGE 1 EACH IV SCH (21:46)
[2017-12-08 05:17] LABS: Basophils % 0.7 % (0.0-0.8); Eosinophils # 0.1 10*3/uL (0.0-0.87); Eosinophils % 3.6 % (0.00-10.9); Hematocrit 28.1 VOL% (35.7-47.0); Hemoglobin 8.5 GM/DL (12.0-16.0); Immature Granulocytes Absolute 0.03 #; Lymphocytes # 0.9 10*3/uL (1.4-4.0); Lymphocytes % 30.5 % (21.3-54.2); Mean Corpuscular HGB Conc 30.2 GM/DL (32-36); Mean Corpuscular Hemoglobin 29 PG (27-34); Mean Corpuscular Volume 96.6 FL (87-102); Mean Platelet Volume 9.7 FL (9.6-12.0); Monocytes # 0.3 10*3/uL (0.11-0.8); Monocytes % 8.6 % (1.7-12.7); Neutrophils # 1.7 10*3/uL (1.4-7.4); Neutrophils % 55.6 % (38.7-73.9); Platelet Count 224 T/CUMM (130-400); Red Blood Count 2.91 MC/CUMM (3.8-5.5); Red Cell Distribution Width 13.2 % (9.3-17.3)
[2017-12-08] MEDS: VANCOMYCIN 50 MG/ML 60 ML/BOTTLE PO SCH ×2 (05:24→13:01)
[2017-12-08 05:32] LABS: Calcium 7.9 MG/DL (8.5-10.1); Osmolality,Calculated 296.3 MOS/KG (273-304); Potassium 4.2 MMOL/L (3.5-5.1)
[2017-12-08] MEDS: CHOLESTYRAMINE 4 GM PACK PO SCH (09:55)
[2017-12-08] MEDS: CLORAZEPATE 3.75 MG TABLET PO SCH (09:55)
[2017-12-08] MEDS: TOLTERODINE 2 MG TABLET PO SCH (09:55)
[2017-12-08] MEDS: DILTIAZEM CD 240 MG CAPSULE PO SCH (09:56)
[2017-12-08] MEDS: CLOPIDOGREL 75 MG TABLET PO SCH (09:56)
[2017-12-08] MEDS: FLUoxetine 20 MG CAPSULE PO SCH (09:56)
[2017-12-08] MEDS: PANTOPRAZOLE 40 MG TABLET PO SCH (09:56)
[2017-12-08] MEDS: DOCUSATE SODIUM 100 MG CAPSULE PO SCH (09:57)
[2017-12-08] MEDS: ALLOPURINOL 100 MG TABLET PO SCH (09:57)
[2017-12-08] MEDS: ASPIRIN EC 81 MG TABLET PO SCH (09:57)
[2017-12-08 11:51] VITALS: BP 154/58
== END 2017-12-08 13:50 | disposition home or self-care (01) | DRG 372 ==
LOC: N.ED 08:47 → N.EDINP 12:56 → N.2E 15:21
PROVIDERS: ADMIT Family Medicine; ATTEND Family Medicine

== ENCOUNTER 2018-08-20 14:58 | Inpatient (IN) ==
[2018-08-20] MEDS ORDERED: ALBUTEROL 2.5 MG/3 ML NEB RESP TX STA ×2 (15:34→17:40)
[2018-08-20 16:26] LABS: Basophils % 0.5 % (0.0-0.8); Eosinophils # 0.1 10*3/uL (0.0-0.87); Eosinophils % 1.4 % (0.00-10.9); Hematocrit 33.9 VOL% (35.7-47.0); Hemoglobin 10.4 GM/DL (12.0-16.0); Immature Granulocytes % 0.5 %; Immature Granulocytes Absolute 0.02 #; Lymphocytes # 0.9 10*3/uL (1.4-4.0); Lymphocytes % 21.3 % (21.3-54.2); Mean Corpuscular HGB Conc 30.7 GM/DL (32-36); Mean Corpuscular Volume 94.2 FL (87-102); Mean Platelet Volume 9.9 FL (9.6-12.0); Neutrophils % 68.3 % (38.7-73.9); Platelet Count 258 T/CUMM (130-400); Red Cell Distribution Width 13.2 % (9.3-17.3); White Blood Count 4.4 T/CUMM (4-12)
[2018-08-20 16:38] LABS: Calcium 8.7 MG/DL (8.5-10.1); Osmolality,Calculated 299.3 MOS/KG (273-304)
[2018-08-20] MEDS ORDERED: SODIUM CHLORIDE 0.9% 500 ML IV STA (16:41)
[2018-08-20 17:23] LABS: Apearance,Urine CLOUDY (Clear); Bacteria,Urine Moderate /HPF (Few); Bilirubin,Urine Negative (Negative); Blood, Urine Small mg/dL (Negative); Glucose,Urine (UA) Negative (Negative); Ketones,Urine Negative (Negative); Nitrite,Urine Negative (Negative); Protein,Urine 100 MG/DL; RBC,Urine 5 /HPF (0-4); Squamous Epithelial Cell,Urine Moderate /HPF (0-10); Urine Color Amber (Yellow); Urine Specific Gravity 1.012 (1.001-1.035); Urine Urobilinogen < 2.0 EU/DL (0.2-1.0); WBC,Urine 1587 /HPF (0-6)
[2018-08-20] MEDS ORDERED: methylPREDNISolone SOD SUC 125 MG/2 ML VIAL IV STA (17:40)
[2018-08-20] MEDS ORDERED: cefTRIAXone 1,000 MG in SODIUM CHLORIDE 0.9% 100 ML IV STA (17:41)
[2018-08-20] MEDS ORDERED: ONDANSETRON 4 MG/2 ML VIAL IV PRN (17:52)
[2018-08-20] MEDS ORDERED: ACETAMINOPHEN 325 MG TABLET PO PRN (17:52)
[2018-08-20] MEDS ORDERED: ZALEPLON 5 MG CAPSULE PO STA (17:55)
[2018-08-20] MEDS ORDERED: NITROGLYCERIN SL 0.4 MG TABLET SL PRN (17:57)
[2018-08-20] MEDS ORDERED: CYANOCOBALAMIN 1000 MCG/1 ML VIAL IM SCH (18:00)
[2018-08-20] MEDS ORDERED: ENOXAPARIN 30 MG/0.3 ML SYRINGE SUBCUT SCH (18:00)
[2018-08-20] MEDS ORDERED: ZALEPLON 5 MG CAPSULE PO SCH (21:00)
[2018-08-20] MEDS: TOLTERODINE 2 MG TABLET PO SCH (22:49)
[2018-08-20] MEDS: ZALEPLON 5 MG CAPSULE PO SCH (22:49)
[2018-08-20] MEDS: DOCUSATE SODIUM 100 MG CAPSULE PO SCH (22:49)
[2018-08-20] MEDS: FENOFIBRATE 48 MG TABLET PO SCH (22:56)
[2018-08-20] MEDS: cefTRIAXone 1,000 MG in SYRINGE 1 EACH IV SCH (23:44)
[2018-08-20] MEDS: methylPREDNISolone SOD SUC 40 MG/1 ML VIAL IV SCH (23:45)
[2018-08-21] MEDS: methylPREDNISolone SOD SUC 40 MG/1 ML VIAL IV SCH ×4 (01:37→17:11)
[2018-08-21 05:46] LABS: Hematocrit 30.4 VOL% (35.7-47.0); Hemoglobin 9.4 GM/DL (12.0-16.0); Immature Granulocytes % 0.6 %; Immature Granulocytes Absolute 0.02 #; Lymphocytes # 0.2 10*3/uL (1.4-4.0); Lymphocytes % 5.8 % (21.3-54.2); Mean Corpuscular HGB Conc 30.9 GM/DL (32-36); Mean Corpuscular Volume 93.8 FL (87-102); Mean Platelet Volume 10.5 FL (9.6-12.0); Monocytes % 0.6 % (1.7-12.7); Platelet Count 218 T/CUMM (130-400); Red Blood Count 3.24 MC/CUMM (3.8-5.5); Red Cell Distribution Width 13.3 % (9.3-17.3); White Blood Count 3.6 T/CUMM (4-12)
[2018-08-21 06:05] LABS: Risk Ratio 3.04; VLDL CHOLESTEROL 17.4 MG/DL
[2018-08-21 06:48] LABS: Hypochromasia Slight; Lymphocytes 3 % (20-55); Pappenheimer Bodies Slight; Platelet Estimate Adequate; Polychromasia Few; Segmented Neutrophils 97 % (50-85); Total Cells Counted 100
[2018-08-21] MEDS ORDERED: FUROSEMIDE 40 MG/4 ML VIAL IV SCH (08:00)
[2018-08-21] MEDS: FUROSEMIDE 20 MG/2 ML VIAL IV SCH ×3 (08:27→17:06)
[2018-08-21] MEDS: TOLTERODINE 2 MG TABLET PO SCH ×2 (08:27→21:47)
[2018-08-21] MEDS: PANTOPRAZOLE 40 MG TABLET PO SCH (08:28)
[2018-08-21] MEDS: FLUoxetine 20 MG CAPSULE PO SCH (08:34)
[2018-08-21] MEDS: CLOPIDOGREL 75 MG TABLET PO SCH (08:34)
[2018-08-21] MEDS: LORazepam 0.5 MG TABLET PO PRN ×2 (08:34→21:47)
[2018-08-21] MEDS: DOCUSATE SODIUM 100 MG CAPSULE PO SCH ×2 (08:47→21:46)
[2018-08-21] MEDS: ALBUTEROL 2.5 MG/3 ML NEB RESP TX PRN (12:52)
[2018-08-21] MEDS: BENZONATATE 100 MG CAPSULE PO SCH ×2 (14:21→21:47)
[2018-08-21] MEDS: DEXTROMETHORPHAN ER 6 MG/ML 90 ML/BOTTLE PO PRN ×2 (16:00→21:49)
[2018-08-21] MEDS: cefTRIAXone 1,000 MG in SYRINGE 1 EACH IV SCH (17:06)
[2018-08-21] MEDS: FENOFIBRATE 48 MG TABLET PO SCH (21:47)
[2018-08-21] MEDS: ENOXAPARIN 30 MG/0.3 ML SYRINGE SUBCUT SCH (21:48)
[2018-08-22] MEDS: ALBUTEROL 2.5 MG/3 ML NEB RESP TX PRN (00:15)
[2018-08-22] MEDS: ZALEPLON 5 MG CAPSULE PO SCH ×2 (02:35→21:29)
[2018-08-22] MEDS: methylPREDNISolone SOD SUC 40 MG/1 ML VIAL IV SCH ×3 (03:34→17:06)
[2018-08-22] MEDS: FUROSEMIDE 20 MG/2 ML VIAL IV SCH (09:15)
[2018-08-22] MEDS: CLOPIDOGREL 75 MG TABLET PO SCH (09:16)
[2018-08-22] MEDS: TOLTERODINE 2 MG TABLET PO SCH ×2 (09:16→21:29)
[2018-08-22] MEDS: DOCUSATE SODIUM 100 MG CAPSULE PO SCH ×2 (09:16→21:29)
[2018-08-22] MEDS: BENZONATATE 100 MG CAPSULE PO SCH ×2 (09:16→21:29)
[2018-08-22] MEDS: PANTOPRAZOLE 40 MG TABLET PO SCH (09:16)
[2018-08-22] MEDS: FLUoxetine 20 MG CAPSULE PO SCH (09:16)
[2018-08-22] MEDS: DILTIAZEM CD 240 MG CAPSULE PO SCH (13:20)
[2018-08-22] MEDS: FUROSEMIDE 20 MG TABLET PO SCH (17:06)
[2018-08-22] MEDS: cefTRIAXone 1,000 MG in SYRINGE 1 EACH IV SCH (17:06)
[2018-08-22] MEDS: FENOFIBRATE 48 MG TABLET PO SCH (21:29)
[2018-08-22] MEDS: ENOXAPARIN 30 MG/0.3 ML SYRINGE SUBCUT SCH (21:30)
[2018-08-23] MEDS: methylPREDNISolone SOD SUC 40 MG/1 ML VIAL IV SCH ×3 (01:40→10:15)
[2018-08-23 04:37] LABS: Hematocrit 34.5 VOL% (35.7-47.0); Hemoglobin 10.7 GM/DL (12.0-16.0); Immature Granulocytes % 0.8 %; Immature Granulocytes Absolute 0.06 #; Lymphocytes # 0.4 10*3/uL (1.4-4.0); Lymphocytes % 5.3 % (21.3-54.2); Mean Corpuscular Volume 93.8 FL (87-102); Mean Platelet Volume 10.7 FL (9.6-12.0); Monocytes % 2.8 % (1.7-12.7); Neutrophils % 91.1 % (38.7-73.9); Platelet Count 245 T/CUMM (130-400); Red Blood Count 3.68 MC/CUMM (3.8-5.5); Red Cell Distribution Width 13.4 % (9.3-17.3); White Blood Count 7.5 T/CUMM (4-12)
[2018-08-23 05:13] LABS: Segmented Neutrophils 100 % (50-85); Total Cells Counted 100
[2018-08-23 05:14] LABS: Hypochromasia 1+; Microcytosis 1+; Platelet Estimate Adequate
[2018-08-23 05:28] LABS: Calcium 8.9 MG/DL (8.5-10.1); Osmolality,Calculated 303.4 MOS/KG (273-304)
[2018-08-23] MEDS: PANTOPRAZOLE 40 MG TABLET PO SCH (08:40)
[2018-08-23] MEDS: BENZONATATE 100 MG CAPSULE PO SCH (08:40)
[2018-08-23] MEDS: FLUoxetine 20 MG CAPSULE PO SCH (08:40)
[2018-08-23] MEDS: CLOPIDOGREL 75 MG TABLET PO SCH (08:40)
[2018-08-23] MEDS: FUROSEMIDE 20 MG TABLET PO SCH (08:40)
[2018-08-23] MEDS: DILTIAZEM CD 240 MG CAPSULE PO SCH (08:40)
[2018-08-23] MEDS: DOCUSATE SODIUM 100 MG CAPSULE PO SCH (08:41)
[2018-08-23] MEDS: TOLTERODINE 2 MG TABLET PO SCH (08:41)
[2018-08-23 08:44] VITALS: BP 172/84
== END 2018-08-23 11:14 | disposition home or self-care (01) | DRG 202 ==
LOC: N.ED 14:58 → N.EDINP 17:52 → N.5E 18:23
PROVIDERS: ADMIT Family Medicine; ATTEND Family Medicine

== ENCOUNTER 2018-09-13 23:45 | Inpatient (IN) ==
[2018-09-14] MEDS ORDERED: ONDANSETRON 4 MG/2 ML VIAL IV STA (00:06)
[2018-09-14] MEDS ORDERED: NITROGLYCERIN 2% OINT 1 INCH/GM PACK TOP STA (00:06)
[2018-09-14] MEDS ORDERED: ASPIRIN 325 MG TABLET PO STA (00:06)
[2018-09-14] MEDS ORDERED: ENOXAPARIN 100 MG/ML SYRINGE SUBCUT STA (00:06)
[2018-09-14] MEDS ORDERED: METOPROLOL TARTRATE 5 MG/5 ML VIAL IV STA (00:06)
[2018-09-14] MEDS ORDERED: ONDANSETRON 4 MG/2 ML VIAL IV PRN (01:18)
[2018-09-14 01:20] LABS: PT Patient Result 10.6 SECS; Partial Thromboplastin Time 24.8 SECS (0-40)
[2018-09-14 01:21] LABS: Basophils % 0.6 % (0.0-0.8); Eosinophils # 0.1 10*3/uL (0.0-0.87); Eosinophils % 2.3 % (0.00-10.9); Hemoglobin 8.8 GM/DL (12.0-16.0); Immature Granulocytes % 0.6 %; Immature Granulocytes Absolute 0.02 #; Lymphocytes # 1.1 10*3/uL (1.4-4.0); Lymphocytes % 30.7 % (21.3-54.2); Mean Corpuscular HGB Conc 30.3 GM/DL (32-36); Mean Corpuscular Volume 95.1 FL (87-102); Monocytes % 11.5 % (1.7-12.7); Neutrophils % 54.3 % (38.7-73.9); Platelet Count 249 T/CUMM (130-400); Red Blood Count 3.05 MC/CUMM (3.8-5.5); Red Cell Distribution Width 13.5 % (9.3-17.3); White Blood Count 3.6 T/CUMM (4-12)
[2018-09-14 01:26] LABS: Alanine Aminotransferase 10 U/L (13-56); Albumin 3.3 G/DL (3.4-5.0); Alkaline Phosphatase 66 U/L (45-117); Aspartate Amino Transferase 14 U/L (0-37); Bilirubin,Total < 0.39 MG/DL (0.2-1.0); Blood Urea Nitrogen 56 MG/DL (7-18); Calcium 8.5 MG/DL (8.5-10.1); Glucose 77 MG/DL (74-106); Total Protein 6.8 G/DL (6.4-8.3); Troponin I 0.016 NG/ML (0.00-0.045)
[2018-09-14 06:33] LABS: Troponin I < 0.015 NG/ML (0.00-0.045)
[2018-09-14] MEDS ORDERED: REGADENOSON 0.4 MG/5 ML SYRINGE IV ONE (07:13)
[2018-09-14] MEDS ORDERED: LORazepam 0.5 MG TABLET PO SCH (09:00)
[2018-09-14] MEDS ORDERED: TRIAMTERENE/HCTZ 37.5-25 MG CAPSULE PO SCH (09:00)
[2018-09-14] MEDS ORDERED: TOLTERODINE 2 MG TABLET PO SCH (09:00)
[2018-09-14] MEDS ORDERED: PANTOPRAZOLE 40 MG TABLET PO SCH (09:00)
[2018-09-14] MEDS ORDERED: CLOPIDOGREL 75 MG TABLET PO SCH (09:00)
[2018-09-14] MEDS ORDERED: DILTIAZEM CD 240 MG CAPSULE PO SCH (09:00)
[2018-09-14] MEDS ORDERED: NITROGLYCERIN 2% OINT 1 INCH/GM PACK TOP SCH (09:00)
[2018-09-14] MEDS ORDERED: METOPROLOL TARTRATE 25 MG TABLET PO SCH (09:00)
[2018-09-14] MEDS ORDERED: NITROGLYCERIN SL 0.4 MG TABLET SL PRN (10:26)
[2018-09-14] MEDS ORDERED: NON-FORMULARY MEDICATION (Diltiazem Hcl 240 MG) PO SCH (10:30)
[2018-09-14] MEDS ORDERED: TRIAMTERENE/HCTZ 37.5-25 MG TABLET PO SCH (11:30)
[2018-09-14 15:42] VITALS: BP 122/56
[2018-09-14] MEDS ORDERED: FUROSEMIDE 20 MG TABLET PO SCH (16:00)
[2018-09-14] MEDS ORDERED: ENOXAPARIN 60 MG/0.6 ML SYRINGE SUBCUT SCH (21:00)
[2018-09-14] MEDS ORDERED: FENOFIBRATE 48 MG TABLET PO SCH (21:00)
[2018-09-15] MEDS ORDERED: ASPIRIN EC 81 MG TABLET PO SCH (09:00)
== END 2018-09-14 17:30 | disposition home or self-care (01) | DRG 882 ==
LOC: N.ED 23:45 → N.EDINP 09-14 01:17 → N.TELEN 09-14 02:08
PROVIDERS: ADMIT Family Medicine; ATTEND Family Medicine

== ENCOUNTER 2018-09-28 13:14 | Inpatient (IN) ==
[2018-09-28] MEDS ORDERED: ONDANSETRON 4 MG/2 ML VIAL IV PRN (13:22)
[2018-09-28] MEDS ORDERED: ACETAMINOPHEN 325 MG TABLET PO PRN (13:22)
[2018-09-28 15:20] LABS: Apearance,Urine CLOUDY (Clear); Bacteria,Urine Many /HPF (Few); Bilirubin,Urine Negative (Negative); Blood, Urine Small mg/dL (Negative); Glucose,Urine (UA) Negative (Negative); Ketones,Urine 5 mg/dL (Negative); Nitrite,Urine Negative (Negative); Protein,Urine 100 MG/DL; RBC,Urine 15 /HPF (0-4); Squamous Epithelial Cell,Urine Occasional /HPF (0-10); Urine Color Yellow (Yellow); Urine Specific Gravity 1.013 (1.001-1.035); Urine Urobilinogen < 2.0 EU/DL (0.2-1.0); WBC,Urine 1513 /HPF (0-6)
[2018-09-28] MEDS: SODIUM CHLORIDE 0.9% 1,000 ML IV SCH (15:28)
[2018-09-28] MEDS: MEROPENEM 1,000 MG in SODIUM CHLORIDE 0.9% 100 ML IV SCH (15:28)
[2018-09-28 15:40] LABS: Basophils % 0.7 % (0.0-0.8); Eosinophils % 1.4 % (0.00-10.9); Hematocrit 30.3 VOL% (35.7-47.0); Hemoglobin 9.3 GM/DL (12.0-16.0); Immature Granulocytes % 0.7 %; Immature Granulocytes Absolute 0.02 #; Lymphocytes # 0.9 10*3/uL (1.4-4.0); Lymphocytes % 31.1 % (21.3-54.2); Mean Corpuscular HGB Conc 30.7 GM/DL (32-36); Mean Corpuscular Volume 96.5 FL (87-102); Mean Platelet Volume 10.6 FL (9.6-12.0); Neutrophils % 53.1 % (38.7-73.9); Platelet Count 212 T/CUMM (130-400); Red Blood Count 3.14 MC/CUMM (3.8-5.5); Red Cell Distribution Width 13.4 % (9.3-17.3); White Blood Count 2.9 T/CUMM (4-12)
[2018-09-28 16:15] LABS: Alanine Aminotransferase 11 U/L (13-56); Alkaline Phosphatase 62 U/L (45-117); Aspartate Amino Transferase 14 U/L (0-37); Bilirubin,Total < 0.39 MG/DL (0.2-1.0); Blood Urea Nitrogen 59 MG/DL (7-18); Calcium 8.2 MG/DL (8.5-10.1); Glucose 84 MG/DL (74-106); Osmolality,Calculated 298.1 MOS/KG (273-304); Total Protein 6.6 G/DL (6.4-8.3)
[2018-09-28] MEDS: ENOXAPARIN 30 MG/0.3 ML SYRINGE SUBCUT SCH (20:37)
[2018-09-28] MEDS: DOCUSATE SODIUM 100 MG CAPSULE PO SCH (20:37)
[2018-09-28] MEDS: traMADol 50 MG TABLET PO PRN (22:00)
[2018-09-29] MEDS: MEROPENEM 1,000 MG in SODIUM CHLORIDE 0.9% 100 ML IV SCH (04:15)
[2018-09-29] MEDS: SODIUM CHLORIDE 0.9% 1,000 ML IV SCH ×2 (06:22→19:45)
[2018-09-29] MEDS: PANTOPRAZOLE 40 MG TABLET PO SCH (08:22)
[2018-09-29] MEDS: DOCUSATE SODIUM 100 MG CAPSULE PO SCH ×2 (08:22→20:50)
[2018-09-29] MEDS: traMADol 50 MG TABLET PO PRN (11:21)
[2018-09-29] MEDS: MEROPENEM 500 MG in SODIUM CHLORIDE 0.9% 100 ML IV SCH (20:50)
[2018-09-29] MEDS: ENOXAPARIN 30 MG/0.3 ML SYRINGE SUBCUT SCH (20:50)
[2018-09-30] MEDS ORDERED: hydrALAZINE 20 MG/1 ML VIAL IV PRN (00:55)
[2018-09-30] MEDS: PANTOPRAZOLE 40 MG TABLET PO SCH (08:04)
[2018-09-30] MEDS: DOCUSATE SODIUM 100 MG CAPSULE PO SCH (08:04)
[2018-09-30] MEDS: MEROPENEM 500 MG in SODIUM CHLORIDE 0.9% 100 ML IV SCH (08:04)
[2018-09-30] MEDS ORDERED: DILTIAZEM CD 240 MG CAPSULE PO SCH (09:00)
[2018-09-30] MEDS ORDERED: METOPROLOL TARTRATE 25 MG TABLET PO SCH (09:00)
[2018-09-30 11:47] VITALS: BP 154/76
[2018-09-30] MEDS: SODIUM CHLORIDE 0.9% 1,000 ML IV SCH (12:27)
== END 2018-09-30 13:03 | disposition home or self-care (01) | DRG 690 ==
LOC: N.2E 14:03
PROVIDERS: ADMIT Family Medicine; ATTEND Family Medicine

== ENCOUNTER 2018-12-05 18:47 | Inpatient (IN) ==
[2018-12-05] MEDS ORDERED: ONDANSETRON 4 MG/2 ML VIAL IV STA (19:32)
[2018-12-05] MEDS ORDERED: ASPIRIN 325 MG TABLET PO STA (19:32)
[2018-12-05] MEDS ORDERED: SODIUM CHLORIDE 0.9% 500 ML IV STA (19:32)
[2018-12-05 20:15] LABS: Basophils % 0.2 % (0.0-0.8); Eosinophils # 0.1 10*3/uL (0.0-0.87); Eosinophils % 1.5 % (0.00-10.9); Hematocrit 30.9 VOL% (35.7-47.0); Hemoglobin 9.8 GM/DL (12.0-16.0); Immature Granulocytes % 0.2 %; Immature Granulocytes Absolute 0.01 #; Lymphocytes # 1.2 10*3/uL (1.4-4.0); Lymphocytes % 28.4 % (21.3-54.2); Mean Corpuscular HGB Conc 31.7 GM/DL (32-36); Mean Corpuscular Volume 93.4 FL (87-102); Mean Platelet Volume 10.4 FL (9.6-12.0); Monocytes % 8.3 % (1.7-12.7); Neutrophils % 61.4 % (38.7-73.9); Platelet Count 202 T/CUMM (130-400); Red Blood Count 3.31 MC/CUMM (3.8-5.5); Red Cell Distribution Width 13.2 % (9.3-17.3); White Blood Count 4.1 T/CUMM (4-12)
[2018-12-05 20:38] LABS: INR 0.9; PT Patient Result 10.1 SECS (9.6-12.2)
[2018-12-05 20:52] LABS: Albumin 3.3 G/DL (3.4-5.0); Bilirubin,Total 0.4 MG/DL (0.2-1.0); Calcium 8.5 MG/DL (8.5-10.1); Total Protein 6.6 G/DL (6.4-8.3)
[2018-12-05 22:16] LABS: Apearance,Urine CLOUDY (Clear); Bacteria,Urine Moderate /HPF (Few); Bilirubin,Urine Negative (Negative); Blood, Urine Negative (Negative); Glucose,Urine (UA) Negative (Negative); Ketones,Urine Negative (Negative); Mucus,Urine Occasional /LPF (Occasional); Nitrite,Urine Negative (Negative); Protein,Urine 30 MG/DL; RBC,Urine 4 /HPF (0-4); Squamous Epithelial Cell,Urine Occasional /HPF (0-10); Urine Color Yellow (Yellow); Urine Specific Gravity 1.013 (1.001-1.035); Urine Urobilinogen < 2.0 EU/DL (0.2-1.0); WBC,Urine 208 /HPF (0-6)
[2018-12-05] MEDS ORDERED: MORPHINE 4 MG/1 ML VIAL IV PRN (22:39)
[2018-12-05] MEDS ORDERED: DEXTROSE 50% 25 GM/50 ML VIAL IV PRN (22:39)
[2018-12-05] MEDS ORDERED: ACETAMINOPHEN 325 MG TABLET PO PRN (22:39)
[2018-12-05] MEDS ORDERED: GLUCAGON 1 MG VIAL IM PRN (22:39)
[2018-12-05] MEDS ORDERED: ONDANSETRON 4 MG/2 ML VIAL IV PRN (22:39)
[2018-12-05] MEDS ORDERED: NITROGLYCERIN SL 0.4 MG TABLET SL PRN (22:39)
[2018-12-05] MEDS ORDERED: hydrOXYzine HCL 10 MG TABLET PO PRN (22:39)
[2018-12-05] MEDS: SODIUM CHLORIDE 0.9% 1,000 ML IV SCH (23:27)
[2018-12-05] MEDS: CIPROFLOXACIN 250 MG TABLET PO SCH (23:27)
[2018-12-05] MEDS: INSULIN REGULAR 100 UNIT/ML SUBCUT SCH (23:37)
[2018-12-06 02:24] LABS: Basophils % 0.3 % (0.0-0.8); Eosinophils # 0.1 10*3/uL (0.0-0.87); Eosinophils % 1.3 % (0.00-10.9); Hematocrit 26.9 VOL% (35.7-47.0); Hemoglobin 8.5 GM/DL (12.0-16.0); Immature Granulocytes % 0.3 %; Immature Granulocytes Absolute 0.01 #; Lymphocytes % 27.6 % (21.3-54.2); Mean Corpuscular HGB Conc 31.6 GM/DL (32-36); Mean Corpuscular Volume 94.7 FL (87-102); Mean Platelet Volume 10.2 FL (9.6-12.0); Monocytes % 10.5 % (1.7-12.7); Platelet Count 166 T/CUMM (130-400); Red Blood Count 2.84 MC/CUMM (3.8-5.5); White Blood Count 3.7 T/CUMM (4-12)
[2018-12-06 02:34] LABS: Alanine Aminotransferase 10 U/L (13-56); Albumin 2.9 G/DL (3.4-5.0); Alkaline Phosphatase 60 U/L (45-117); Aspartate Amino Transferase 10 U/L (0-37); Bilirubin,Total < 0.39 MG/DL (0.2-1.0); Blood Urea Nitrogen 58 MG/DL (7-18); Calcium 8.7 MG/DL (8.5-10.1); Estimated Glom Filtration Rate 14 ML/MIN; Glucose 89 MG/DL (74-106); HDL Cholesterol 34 MG/DL (40-60); Osmolality,Calculated 302.7 MOS/KG (273-304); Risk Ratio 3.12; Total Protein 5.8 G/DL (6.4-8.3); Triglycerides 105 MG/DL (2-150)
[2018-12-06] MEDS: INSULIN REGULAR 100 UNIT/ML SUBCUT SCH ×3 (05:52→19:08)
[2018-12-06] MEDS ORDERED: POTASSIUM CHLORIDE RIDER 10 MEQ in PREMIX 1 EACH IV PRN (08:19)
[2018-12-06] MEDS ORDERED: MAGNESIUM SULF RIDER 2 GM in PREMIX 1 EACH IV PRN (08:19)
[2018-12-06] MEDS ORDERED: INFLUENZA VIRUS VACCINE 0.5 ML SYRINGE IM ONE (09:00)
[2018-12-06] MEDS ORDERED: ERTAPENEM 1,000 MG VIAL IV SCH (09:00)
[2018-12-06] MEDS ORDERED: DOCUSATE SODIUM 100 MG CAPSULE PO SCH (09:00)
[2018-12-06] MEDS: SODIUM CHLORIDE 0.9% 1,000 ML IV SCH (09:49)
[2018-12-06] MEDS ORDERED: DIAZEPAM 5 MG TABLET PO ONE (10:00)
[2018-12-06] MEDS ORDERED: diphenhydrAMINE CAP 25 MG CAPSULE PO ONE (10:00)
[2018-12-06] MEDS: DILTIAZEM CD 240 MG CAPSULE PO SCH (10:05)
[2018-12-06] MEDS: CLOPIDOGREL 75 MG TABLET PO SCH (10:05)
[2018-12-06] MEDS: METOPROLOL TARTRATE 25 MG TABLET PO SCH ×2 (10:06→22:11)
[2018-12-06] MEDS ORDERED: LIDOCAINE 1% 20 ML VIAL ONE (10:23)
[2018-12-06] MEDS ORDERED: MIDAZOLAM 2 MG/2 ML VIAL ONE (10:26)
[2018-12-06] MEDS ORDERED: fentaNYL 100 MCG/2 ML VIAL ONE (10:27)
[2018-12-06] MEDS ORDERED: hydrALAZINE 20 MG/1 ML VIAL ONE (10:43)
[2018-12-06] MEDS: CIPROFLOXACIN 250 MG TABLET PO SCH ×2 (12:27→22:11)
[2018-12-06] MEDS: DOCUSATE SODIUM 100 MG CAPSULE PO SCH ×2 (12:27→22:10)
[2018-12-06] MEDS: ALLOPURINOL 100 MG TABLET PO SCH (12:27)
[2018-12-06] MEDS: BENZONATATE 100 MG CAPSULE PO SCH ×3 (12:27→22:10)
[2018-12-06] MEDS: TOLTERODINE 2 MG TABLET PO SCH ×2 (12:27→22:10)
[2018-12-06] MEDS: SODIUM CHLORIDE 0.45% 1,000 ML IV SCH ×2 (12:28→16:30)
[2018-12-06] MEDS: PANTOPRAZOLE 40 MG TABLET PO SCH (12:28)
[2018-12-06] MEDS: FLUoxetine 20 MG CAPSULE PO SCH (12:28)
[2018-12-06] MEDS: ERTAPENEM 500 MG in SODIUM CHLORIDE 0.9% 100 ML IV SCH (15:28)
[2018-12-06] MEDS: FENOFIBRATE 48 MG TABLET PO SCH (22:09)
[2018-12-07] MEDS: INSULIN REGULAR 100 UNIT/ML SUBCUT SCH ×4 (00:05→17:46)
[2018-12-07] MEDS: SODIUM CHLORIDE 0.45% 1,000 ML IV SCH ×4 (01:50→21:21)
[2018-12-07 04:37] LABS: Basophils % 0.5 % (0.0-0.8); Eosinophils # 0.1 10*3/uL (0.0-0.87); Eosinophils % 1.8 % (0.00-10.9); Hematocrit 28.1 VOL% (35.7-47.0); Hemoglobin 8.6 GM/DL (12.0-16.0); Immature Granulocytes % 0.3 %; Immature Granulocytes Absolute 0.01 #; Lymphocytes # 1.1 10*3/uL (1.4-4.0); Lymphocytes % 26.8 % (21.3-54.2); Mean Corpuscular HGB Conc 30.6 GM/DL (32-36); Mean Corpuscular Volume 95.9 FL (87-102); Mean Platelet Volume 10.2 FL (9.6-12.0); Monocytes % 11.1 % (1.7-12.7); Neutrophils % 59.5 % (38.7-73.9); Platelet Count 169 T/CUMM (130-400); Red Blood Count 2.93 MC/CUMM (3.8-5.5); Red Cell Distribution Width 13.2 % (9.3-17.3)
[2018-12-07 05:14] LABS: Calcium 7.9 MG/DL (8.5-10.1); Osmolality,Calculated 291.4 MOS/KG (273-304)
[2018-12-07] MEDS: DOCUSATE SODIUM 100 MG CAPSULE PO SCH ×2 (09:17→21:52)
[2018-12-07] MEDS: DILTIAZEM CD 240 MG CAPSULE PO SCH (09:18)
[2018-12-07] MEDS: CLOPIDOGREL 75 MG TABLET PO SCH (09:19)
[2018-12-07] MEDS: FLUoxetine 20 MG CAPSULE PO SCH (09:19)
[2018-12-07] MEDS: BENZONATATE 100 MG CAPSULE PO SCH ×3 (09:19→21:52)
[2018-12-07] MEDS: ALLOPURINOL 100 MG TABLET PO SCH (09:19)
[2018-12-07] MEDS: TOLTERODINE 2 MG TABLET PO SCH ×2 (09:19→21:51)
[2018-12-07] MEDS: PANTOPRAZOLE 40 MG TABLET PO SCH (09:19)
[2018-12-07] MEDS: METOPROLOL TARTRATE 25 MG TABLET PO SCH ×2 (10:17→21:51)
[2018-12-07] MEDS: CIPROFLOXACIN 250 MG TABLET PO SCH ×3 (12:02→21:59)
[2018-12-07] MEDS: ERTAPENEM 500 MG in SODIUM CHLORIDE 0.9% 100 ML IV SCH (14:52)
[2018-12-07] MEDS: FENOFIBRATE 48 MG TABLET PO SCH (21:52)
[2018-12-08] MEDS: INSULIN REGULAR 100 UNIT/ML SUBCUT SCH ×2 (00:08→06:02)
[2018-12-08] MEDS: SODIUM CHLORIDE 0.45% 1,000 ML IV SCH (06:10)
[2018-12-08 07:49] VITALS: BP 159/69
[2018-12-08 08:05] LABS: Calcium 8.3 MG/DL (8.5-10.1); Osmolality,Calculated 293.3 MOS/KG (273-304)
[2019-01-04] MEDS ORDERED: CYANOCOBALAMIN 1000 MCG/1 ML VIAL IM SCH (09:00)
== END 2018-12-08 09:58 | disposition home health service (06) | DRG 689 ==
LOC: N.EDINP 18:47 → N.ED 18:47 → N.TELES 21:57
PROVIDERS: ADMIT Family Medicine; ATTEND Family Medicine
PROC: CLCCHCL (ICD-10-PCS; 2018-12-06 10:45)

== ENCOUNTER 2019-04-21 15:29 | Inpatient (IN) ==
[2019-04-21] MEDS ORDERED: METOCLOPRAMIDE 10 MG/2 ML VIAL IV STA (15:49)
[2019-04-21] MEDS ORDERED: PANTOPRAZOLE 40 MG VIAL IV STA (15:49)
[2019-04-21] MEDS ORDERED: AZITHROMYCIN INJ 500 MG in SODIUM CHLORIDE 0.9% 250 ML IV STA (15:49)
[2019-04-21] MEDS ORDERED: methylPREDNISolone SOD SUC 125 MG/2 ML VIAL IV STA (15:49)
[2019-04-21] MEDS ORDERED: ONDANSETRON 4 MG/2 ML VIAL IV STA (15:49)
[2019-04-21] MEDS ORDERED: ALBUTEROL NEB SOLN 5 MG/ML 20 ML/BOTTLE CONT NEB SCH (16:00)
[2019-04-21 16:33] LABS: Basophils % 0.3 % (0.0-0.8); Eosinophils % 0.2 % (0.00-10.9); Hematocrit 30.4 VOL% (35.7-47.0); Hemoglobin 9.6 GM/DL (12.0-16.0); Immature Granulocytes % 0.2 %; Immature Granulocytes Absolute 0.01 #; Lymphocytes # 0.6 10*3/uL (1.4-4.0); Lymphocytes % 9.6 % (21.3-54.2); Mean Corpuscular HGB Conc 31.6 GM/DL (32-36); Mean Corpuscular Volume 95.3 FL (87-102); Mean Platelet Volume 11.1 FL (9.6-12.0); Monocytes % 7.1 % (1.7-12.7); Neutrophils % 82.6 % (38.7-73.9); Platelet Count 196 T/CUMM (130-400); Red Blood Count 3.19 MC/CUMM (3.8-5.5); Red Cell Distribution Width 14.1 % (9.3-17.3); White Blood Count 6.2 T/CUMM (4-12)
[2019-04-21 16:43] LABS: PT Patient Result 10.4 SECS (9.6-12.2); Partial Thromboplastin Time 28.8 SECS (20.8-36.0)
[2019-04-21 16:53] LABS: Apearance,Urine CLOUDY (Clear); Bacteria,Urine Few /HPF (Few); Bilirubin,Urine Negative (Negative); Blood, Urine Small mg/dL (Negative); Glucose,Urine (UA) 50 mg/dL (Negative); Hyaline Casts,Urine 3 /LPF (0-3); Ketones,Urine Negative (Negative); Mucus,Urine Occasional /LPF (Occasional); Nitrite,Urine Negative (Negative); Protein,Urine >=500 MG/DL; Squamous Epithelial Cell,Urine Occasional /HPF (0-10); Urine Color Yellow (Yellow); Urine Specific Gravity 1.017 (1.001-1.035); Urine Urobilinogen < 2.0 EU/DL (0.2-1.0); WBC,Urine 144 /HPF (0-6)
[2019-04-21 16:58] LABS: Barbiturates Screen,Urine Negative (Negative); Benzodiazepines Screen,Urine Negative (Negative); Cannabinoid Screen,Urine Negative (Negative); Opiate Screen,Urine Negative (Negative); Phencyclidine Screen,Urine Negative (Negative)
[2019-04-21 17:06] LABS: Troponin I 0.106 NG/ML (0.00-0.045)
[2019-04-21 17:20] LABS: Albumin 2.8 G/DL (3.4-5.0); Bilirubin,Total 0.5 MG/DL (0.2-1.0); Calcium 8.6 MG/DL (8.5-10.1); Osmolality,Calculated 290.5 MOS/KG (273-304); Total Protein 6.6 G/DL (6.4-8.3)
[2019-04-21] MEDS ORDERED: cefTRIAXone 1,000 MG in SODIUM CHLORIDE 0.9% 100 ML IV STA (17:26)
[2019-04-21] MEDS ORDERED: ASPIRIN 325 MG TABLET PO STA (17:33)
[2019-04-21] MEDS ORDERED: NITROGLYCERIN 2% OINT 1 INCH/GM PACK TOP STA (17:33)
[2019-04-21] MEDS ORDERED: FUROSEMIDE 40 MG/4 ML VIAL IV STA (17:33)
[2019-04-21] MEDS ORDERED: ONDANSETRON 4 MG/2 ML VIAL IV PRN (17:38)
[2019-04-21] MEDS ORDERED: ACETAMINOPHEN 325 MG TABLET PO PRN (17:38)
[2019-04-21] MEDS: ALBUTEROL/IPRATROPIUM 3 ML NEB RESP TX SCH (19:37)
[2019-04-21] MEDS ORDERED: hydrOXYzine HCL 10 MG TABLET PO PRN (22:04)
[2019-04-21] MEDS ORDERED: NITROGLYCERIN SL 0.4 MG TABLET SL PRN (22:04)
[2019-04-21 22:48] LABS: Troponin I 0.076 NG/ML (0.00-0.045)
[2019-04-21] MEDS: NITROGLYCERIN 2% OINT 1 INCH/GM PACK TOP SCH (22:48)
[2019-04-21] MEDS: cefTRIAXone 2,000 MG in SYRINGE 1 EACH IV SCH (22:49)
[2019-04-21] MEDS ORDERED: INFLUENZA VIRUS VACCINE 0.5 ML SYRINGE IM ONE (23:04)
[2019-04-21] MEDS: METOPROLOL TARTRATE 25 MG TABLET PO SCH (23:31)
[2019-04-21] MEDS: FENOFIBRATE 48 MG TABLET PO SCH (23:32)
[2019-04-21] MEDS: DOCUSATE SODIUM 100 MG CAPSULE PO SCH (23:32)
[2019-04-21] MEDS: METHENAMINE HIPPURATE 1 GM TABLET PO SCH (23:33)
[2019-04-21] MEDS: TOLTERODINE 2 MG TABLET PO SCH (23:36)
[2019-04-22] MEDS: ALBUTEROL/IPRATROPIUM 3 ML NEB RESP TX SCH ×4 (01:35→20:00)
[2019-04-22] MEDS: NITROGLYCERIN 2% OINT 1 INCH/GM PACK TOP SCH ×4 (01:37→17:31)
[2019-04-22] MEDS ORDERED: methylPREDNISolone SOD SUC 125 MG/2 ML VIAL IV SCH (02:00)
[2019-04-22 06:39] LABS: Blood Urea Nitrogen 52 MG/DL (7-18); Calcium 8.4 MG/DL (8.5-10.1); Estimated Glom Filtration Rate 12 ML/MIN; Glucose 171 MG/DL (74-106); Osmolality,Calculated 298.3 MOS/KG (273-304)
[2019-04-22 06:41] LABS: Troponin I 0.065 NG/ML (0.00-0.045)
[2019-04-22] MEDS: DILTIAZEM CD 240 MG CAPSULE PO SCH (09:48)
[2019-04-22] MEDS: METOPROLOL TARTRATE 25 MG TABLET PO SCH ×2 (09:48→22:18)
[2019-04-22] MEDS: CLOPIDOGREL 75 MG TABLET PO SCH (09:48)
[2019-04-22] MEDS: FLUoxetine 20 MG CAPSULE PO SCH (09:48)
[2019-04-22] MEDS: allopurinoL 100 MG TABLET PO SCH (09:48)
[2019-04-22] MEDS: PANTOPRAZOLE 40 MG TABLET PO SCH (09:48)
[2019-04-22] MEDS: TOLTERODINE 2 MG TABLET PO SCH ×2 (09:49→22:18)
[2019-04-22] MEDS: METHENAMINE HIPPURATE 1 GM TABLET PO SCH ×2 (09:49→22:20)
[2019-04-22] MEDS: FUROSEMIDE 40 MG/4 ML VIAL IV SCH ×2 (09:49→17:27)
[2019-04-22] MEDS: DOCUSATE SODIUM 100 MG CAPSULE PO SCH ×2 (09:49→22:20)
[2019-04-22] MEDS: methylPREDNISolone SOD SUC 40 MG/1 ML VIAL IV SCH ×2 (10:56→22:29)
[2019-04-22] MEDS: traMADol 50 MG TABLET PO PRN ×2 (10:58→22:22)
[2019-04-22] MEDS: AZITHROMYCIN INJ 500 MG in SODIUM CHLORIDE 0.9% 250 ML IV SCH (17:28)
[2019-04-22] MEDS: FENOFIBRATE 48 MG TABLET PO SCH (22:19)
[2019-04-22] MEDS: cefTRIAXone 2,000 MG in SYRINGE 1 EACH IV SCH (22:32)
[2019-04-23] MEDS: NITROGLYCERIN 2% OINT 1 INCH/GM PACK TOP SCH ×4 (00:13→18:33)
[2019-04-23] MEDS: ALBUTEROL/IPRATROPIUM 3 ML NEB RESP TX SCH ×4 (01:18→20:34)
[2019-04-23] MEDS: methylPREDNISolone SOD SUC 40 MG/1 ML VIAL IV SCH ×2 (03:59→15:10)
[2019-04-23] MEDS: ALPRAZolam 0.25 MG TABLET PO PRN ×2 (04:00→20:29)
[2019-04-23 05:33] LABS: Hematocrit 27.9 VOL% (35.7-47.0); Hemoglobin 8.2 GM/DL (12.0-16.0); Immature Granulocytes % 0.5 %; Immature Granulocytes Absolute 0.04 #; Lymphocytes # 0.2 10*3/uL (1.4-4.0); Lymphocytes % 2.7 % (21.3-54.2); Mean Corpuscular HGB Conc 29.4 GM/DL (32-36); Mean Platelet Volume 11.3 FL (9.6-12.0); Neutrophils % 93.8 % (38.7-73.9); Platelet Count 224 T/CUMM (130-400); Red Blood Count 2.79 MC/CUMM (3.8-5.5); Red Cell Distribution Width 14.1 % (9.3-17.3); White Blood Count 7.4 T/CUMM (4-12)
[2019-04-23 05:57] LABS: Calcium 8.1 MG/DL (8.5-10.1); Osmolality,Calculated 300.4 MOS/KG (273-304)
[2019-04-23 06:16] LABS: Segmented Neutrophils 99 % (50-85); Total Cells Counted 100
[2019-04-23 06:17] LABS: Anisocytosis 1+; Hypochromasia 1+; Ovalocytes 1+; Platelet Estimate Normal
[2019-04-23] MEDS: TOLTERODINE 2 MG TABLET PO SCH ×2 (09:49→21:59)
[2019-04-23] MEDS: PANTOPRAZOLE 40 MG TABLET PO SCH (09:50)
[2019-04-23] MEDS: DILTIAZEM CD 240 MG CAPSULE PO SCH (09:50)
[2019-04-23] MEDS: allopurinoL 100 MG TABLET PO SCH (09:50)
[2019-04-23] MEDS: CLOPIDOGREL 75 MG TABLET PO SCH (09:50)
[2019-04-23] MEDS: FUROSEMIDE 40 MG/4 ML VIAL IV SCH (09:50)
[2019-04-23] MEDS: METHENAMINE HIPPURATE 1 GM TABLET PO SCH ×2 (09:50→22:01)
[2019-04-23] MEDS: FLUoxetine 20 MG CAPSULE PO SCH (09:50)
[2019-04-23] MEDS: DOCUSATE SODIUM 100 MG CAPSULE PO SCH ×2 (09:50→22:00)
[2019-04-23] MEDS: METOPROLOL TARTRATE 25 MG TABLET PO SCH ×2 (09:50→22:00)
[2019-04-23] MEDS: traMADol 50 MG TABLET PO PRN (15:10)
[2019-04-23] MEDS: FENOFIBRATE 48 MG TABLET PO SCH (21:59)
[2019-04-23] MEDS: cefTRIAXone 2,000 MG in SYRINGE 1 EACH IV SCH (22:02)
[2019-04-23] MEDS: AZITHROMYCIN INJ 500 MG in SODIUM CHLORIDE 0.9% 250 ML IV SCH (22:10)
[2019-04-24] MEDS: ALBUTEROL/IPRATROPIUM 3 ML NEB RESP TX SCH ×4 (00:20→19:48)
[2019-04-24] MEDS: NITROGLYCERIN 2% OINT 1 INCH/GM PACK TOP SCH ×4 (00:52→18:52)
[2019-04-24 04:14] LABS: Hematocrit 27.4 VOL% (35.7-47.0); Hemoglobin 8.4 GM/DL (12.0-16.0); Immature Granulocytes % 0.5 %; Immature Granulocytes Absolute 0.03 #; Lymphocytes # 0.2 10*3/uL (1.4-4.0); Lymphocytes % 4.4 % (21.3-54.2); Mean Corpuscular HGB Conc 30.7 GM/DL (32-36); Mean Corpuscular Volume 96.5 FL (87-102); Mean Platelet Volume 11.3 FL (9.6-12.0); Monocytes % 3.5 % (1.7-12.7); Neutrophils % 91.6 % (38.7-73.9); Platelet Count 229 T/CUMM (130-400); Red Blood Count 2.84 MC/CUMM (3.8-5.5); Red Cell Distribution Width 14.1 % (9.3-17.3); White Blood Count 5.5 T/CUMM (4-12)
[2019-04-24] MEDS: methylPREDNISolone SOD SUC 40 MG/1 ML VIAL IV SCH ×2 (04:39→18:51)
[2019-04-24 04:41] LABS: Calcium 8.2 MG/DL (8.5-10.1); Lymphocytes 6 % (20-55); Osmolality,Calculated 306.4 MOS/KG (273-304); Platelet Estimate Adequate; Segmented Neutrophils 91 % (50-85); Total Cells Counted 100
[2019-04-24 04:42] LABS: Hypochromasia 1+; Ovalocytes Slight
[2019-04-24] MEDS: ALPRAZolam 0.25 MG TABLET PO PRN ×2 (06:23→21:32)
[2019-04-24 07:59] LABS: Alanine Aminotransferase 15 U/L (13-56); Albumin 2.4 G/DL (3.4-5.0); Alkaline Phosphatase 59 U/L (45-117); Aspartate Amino Transferase 13 U/L (0-37); Bilirubin,Direct < 0.100 MG/DL (0.0-0.20); Bilirubin,Indirect 0.3 MG/DL (0.0-1.0); Bilirubin,Total < 0.39 MG/DL (0.2-1.0)
[2019-04-24 08:28] LABS: INR 0.9; PT Patient Result 10.1 SECS (9.6-12.2)
[2019-04-24] MEDS: LEVOFLOXACIN INJ 250 MG in PREMIX 1 EACH IV SCH (10:28)
[2019-04-24] MEDS: TOLTERODINE 2 MG TABLET PO SCH ×2 (10:34→21:27)
[2019-04-24] MEDS: METHENAMINE HIPPURATE 1 GM TABLET PO SCH ×2 (10:34→21:32)
[2019-04-24] MEDS: DILTIAZEM CD 240 MG CAPSULE PO SCH (10:35)
[2019-04-24] MEDS: PANTOPRAZOLE 40 MG TABLET PO SCH (10:39)
[2019-04-24] MEDS: allopurinoL 100 MG TABLET PO SCH (10:39)
[2019-04-24] MEDS: METOPROLOL TARTRATE 25 MG TABLET PO SCH ×2 (10:39→21:29)
[2019-04-24] MEDS: DOCUSATE SODIUM 100 MG CAPSULE PO SCH ×2 (10:39→21:27)
[2019-04-24] MEDS: CLOPIDOGREL 75 MG TABLET PO SCH (10:40)
[2019-04-24] MEDS: FLUoxetine 20 MG CAPSULE PO SCH (10:40)
[2019-04-24] MEDS ORDERED: oxyCODONE/ACETAMINOPHEN 5-325 MG TABLET PO PRN (11:45)
[2019-04-24] MEDS: FENOFIBRATE 48 MG TABLET PO SCH (21:32)
[2019-04-25] MEDS: NITROGLYCERIN 2% OINT 1 INCH/GM PACK TOP SCH ×4 (00:13→17:29)
[2019-04-25] MEDS: ALBUTEROL/IPRATROPIUM 3 ML NEB RESP TX SCH ×4 (02:38→18:55)
[2019-04-25] MEDS: methylPREDNISolone SOD SUC 40 MG/1 ML VIAL IV SCH ×2 (04:17→17:28)
[2019-04-25 05:25] LABS: Osmolality,Calculated 307.4 MOS/KG (273-304)
[2019-04-25] MEDS: DOCUSATE SODIUM 100 MG CAPSULE PO SCH ×2 (09:02→21:02)
[2019-04-25] MEDS: TOLTERODINE 2 MG TABLET PO SCH ×2 (09:02→21:01)
[2019-04-25] MEDS: FLUoxetine 20 MG CAPSULE PO SCH (09:02)
[2019-04-25] MEDS: allopurinoL 100 MG TABLET PO SCH (09:02)
[2019-04-25] MEDS: METOPROLOL TARTRATE 25 MG TABLET PO SCH ×2 (09:04→21:02)
[2019-04-25] MEDS: PANTOPRAZOLE 40 MG TABLET PO SCH (09:05)
[2019-04-25] MEDS: METHENAMINE HIPPURATE 1 GM TABLET PO SCH ×2 (09:05→21:01)
[2019-04-25] MEDS: CLOPIDOGREL 75 MG TABLET PO SCH (09:05)
[2019-04-25] MEDS: DILTIAZEM CD 240 MG CAPSULE PO SCH (09:05)
[2019-04-25] MEDS: ALPRAZolam 0.25 MG TABLET PO PRN (21:01)
[2019-04-25] MEDS: FENOFIBRATE 48 MG TABLET PO SCH (21:02)
[2019-04-26] MEDS: ALBUTEROL/IPRATROPIUM 3 ML NEB RESP TX SCH ×4 (00:02→19:05)
[2019-04-26] MEDS: NITROGLYCERIN 2% OINT 1 INCH/GM PACK TOP SCH ×4 (00:20→17:54)
[2019-04-26] MEDS: methylPREDNISolone SOD SUC 40 MG/1 ML VIAL IV SCH ×2 (03:46→15:40)
[2019-04-26 05:11] LABS: Calcium 8.1 MG/DL (8.5-10.1); Osmolality,Calculated 315.1 MOS/KG (273-304)
[2019-04-26] MEDS: LEVOFLOXACIN INJ 250 MG in PREMIX 1 EACH IV SCH (09:03)
[2019-04-26] MEDS: METOPROLOL TARTRATE 25 MG TABLET PO SCH ×2 (09:07→20:46)
[2019-04-26] MEDS: PANTOPRAZOLE 40 MG TABLET PO SCH (09:07)
[2019-04-26] MEDS: DILTIAZEM CD 240 MG CAPSULE PO SCH (09:07)
[2019-04-26] MEDS: allopurinoL 100 MG TABLET PO SCH (09:07)
[2019-04-26] MEDS: DOCUSATE SODIUM 100 MG CAPSULE PO SCH ×2 (09:07→20:46)
[2019-04-26] MEDS: CLOPIDOGREL 75 MG TABLET PO SCH (09:07)
[2019-04-26] MEDS: METHENAMINE HIPPURATE 1 GM TABLET PO SCH ×2 (09:07→20:46)
[2019-04-26] MEDS: TOLTERODINE 2 MG TABLET PO SCH ×2 (09:08→20:46)
[2019-04-26] MEDS: FLUoxetine 20 MG CAPSULE PO SCH (09:08)
[2019-04-26 16:43] LABS: Lymphocytes,Pleural Fluid 50 %; Monocytes,Pleural Fluid 5 %; Neutrophils,Pleural Fluid 45 %; RBC,Pleural Fluid 518 T/CUMM
[2019-04-26] MEDS: FENOFIBRATE 48 MG TABLET PO SCH (20:46)
[2019-04-27] MEDS: NITROGLYCERIN 2% OINT 1 INCH/GM PACK TOP SCH ×4 (00:15→17:13)
[2019-04-27] MEDS: ALBUTEROL/IPRATROPIUM 3 ML NEB RESP TX SCH ×4 (01:00→19:40)
[2019-04-27] MEDS: methylPREDNISolone SOD SUC 40 MG/1 ML VIAL IV SCH ×2 (04:38→15:28)
[2019-04-27] MEDS: METHENAMINE HIPPURATE 1 GM TABLET PO SCH ×2 (10:17→21:02)
[2019-04-27] MEDS: DOCUSATE SODIUM 100 MG CAPSULE PO SCH ×2 (10:17→21:03)
[2019-04-27] MEDS: CLOPIDOGREL 75 MG TABLET PO SCH (10:17)
[2019-04-27] MEDS: TOLTERODINE 2 MG TABLET PO SCH ×2 (10:17→21:03)
[2019-04-27] MEDS: METOPROLOL TARTRATE 25 MG TABLET PO SCH ×2 (10:18→21:03)
[2019-04-27] MEDS: DILTIAZEM CD 240 MG CAPSULE PO SCH (10:18)
[2019-04-27] MEDS: FLUoxetine 20 MG CAPSULE PO SCH (10:18)
[2019-04-27] MEDS: PANTOPRAZOLE 40 MG TABLET PO SCH (10:18)
[2019-04-27] MEDS: allopurinoL 100 MG TABLET PO SCH (10:18)
[2019-04-27] MEDS: FENOFIBRATE 48 MG TABLET PO SCH (21:02)
[2019-04-27] MEDS: ALPRAZolam 0.25 MG TABLET PO PRN (21:10)
[2019-04-28] MEDS: ALBUTEROL/IPRATROPIUM 3 ML NEB RESP TX SCH ×2 (01:27→07:15)
[2019-04-28] MEDS: methylPREDNISolone SOD SUC 40 MG/1 ML VIAL IV SCH (05:00)
[2019-04-28 06:10] LABS: Calcium 8.3 MG/DL (8.5-10.1); Osmolality,Calculated 311.3 MOS/KG (273-304)
[2019-04-28] MEDS: NITROGLYCERIN 2% OINT 1 INCH/GM PACK TOP SCH ×2 (06:17)
[2019-04-28] MEDS: LEVOFLOXACIN INJ 250 MG in PREMIX 1 EACH IV SCH (08:44)
[2019-04-28] MEDS: METOPROLOL TARTRATE 25 MG TABLET PO SCH (09:50)
[2019-04-28] MEDS: allopurinoL 100 MG TABLET PO SCH (09:50)
[2019-04-28] MEDS: TOLTERODINE 2 MG TABLET PO SCH (09:50)
[2019-04-28] MEDS: PANTOPRAZOLE 40 MG TABLET PO SCH (09:50)
[2019-04-28] MEDS: FLUoxetine 20 MG CAPSULE PO SCH (09:51)
[2019-04-28] MEDS: CLOPIDOGREL 75 MG TABLET PO SCH (09:51)
[2019-04-28] MEDS: METHENAMINE HIPPURATE 1 GM TABLET PO SCH (09:51)
[2019-04-28] MEDS: DILTIAZEM CD 240 MG CAPSULE PO SCH (09:51)
[2019-04-28] MEDS: DOCUSATE SODIUM 100 MG CAPSULE PO SCH (09:51)
[2019-04-28 11:04] VITALS: BP 156/83
== END 2019-04-28 11:51 | disposition home health service (06) | DRG 193 ==
LOC: N.ED 15:29 → N.EDINP 17:35 → N.TELES 21:20
PROVIDERS: ADMIT Family Medicine; ATTEND Family Medicine

== ENCOUNTER 2019-12-10 10:26 | Inpatient (IN) ==
[2019-12-10] MEDS ORDERED: SODIUM CHLORIDE 0.9% 1,000 ML IV STA (10:50)
[2019-12-10] MEDS ORDERED: ONDANSETRON 4 MG/2 ML VIAL IV STA (10:50)
[2019-12-10] MEDS ORDERED: MORPHINE 4 MG/1 ML VIAL IV ONE (10:50)
[2019-12-10 11:15] LABS: Basophils % 0.6 % (0.0-0.8); Eosinophils # 0.1 10*3/uL (0.0-0.87); Eosinophils % 2.4 % (0.00-10.9); Hematocrit 29.1 VOL% (35.7-47.0); Hemoglobin 8.9 GM/DL (12.0-16.0); Immature Granulocytes % 0.3 %; Immature Granulocytes Absolute 0.01 #; Lymphocytes # 0.9 10*3/uL (1.4-4.0); Lymphocytes % 28.2 % (21.3-54.2); Mean Corpuscular HGB Conc 30.6 GM/DL (32-36); Mean Corpuscular Volume 97.7 FL (87-102); Mean Platelet Volume 10.6 FL (9.6-12.0); Monocytes % 8.4 % (1.7-12.7); Neutrophils % 60.1 % (38.7-73.9); Platelet Count 218 T/CUMM (130-400); Red Blood Count 2.98 MC/CUMM (3.8-5.5); Red Cell Distribution Width 13.9 % (9.3-17.3); White Blood Count 3.3 T/CUMM (4-12)
[2019-12-10 11:19] LABS: Bacteria,Urine Many /HPF (Few); Bilirubin,Urine Negative (Negative); Blood, Urine Small mg/dL (Negative); Glucose,Urine (UA) Negative (Negative); Ketones,Urine Negative (Negative); Nitrite,Urine Positive (Negative); Protein,Urine 100 MG/DL; RBC,Urine 10 /HPF (0-4); Urine Appearance CLOUDY (Clear); Urine Color Yellow (Yellow); Urine Specific Gravity 1.011 (1.001-1.035); Urine Urobilinogen < 2.0 EU/DL (0.2-1.0); WBC,Urine 241 /HPF (0-6)
[2019-12-10] MEDS ORDERED: cefTRIAXone 1,000 MG in SODIUM CHLORIDE 0.9% 100 ML IV STA (11:23)
[2019-12-10 12:05] LABS: Albumin 3.2 G/DL (3.4-5.0); Bilirubin,Total 0.6 MG/DL (0.2-1.0); Calcium 8.3 MG/DL (8.5-10.1); Osmolality,Calculated 301.1 MOS/KG (273-304); Total Protein 6.6 G/DL (6.4-8.3)
[2019-12-10] MEDS ORDERED: ACETAMINOPHEN 325 MG TABLET PO PRN (14:09)
[2019-12-10] MEDS: SODIUM CHLORIDE 0.9% 1,000 ML IV SCH ×2 (14:24→23:18)
[2019-12-10] MEDS: ONDANSETRON 4 MG/2 ML VIAL IV PRN (18:34)
[2019-12-10] MEDS: HYDROmorphone 2 MG/1 ML VIAL IV PRN (18:35)
[2019-12-10] MEDS: DOCUSATE SODIUM 100 MG CAPSULE PO SCH (21:08)
[2019-12-11 06:39] LABS: Calcium 7.8 MG/DL (8.5-10.1); Osmolality,Calculated 303.8 MOS/KG (273-304)
[2019-12-11] MEDS: PANTOPRAZOLE 40 MG TABLET PO SCH (08:30)
[2019-12-11] MEDS: DOCUSATE SODIUM 100 MG CAPSULE PO SCH ×2 (08:30→20:41)
[2019-12-11] MEDS: SODIUM CHLORIDE 0.9% 1,000 ML IV SCH ×2 (08:31→19:25)
[2019-12-11] MEDS ORDERED: LEVOFLOXACIN INJ 500 MG in PREMIX 1 EACH IV SCH (09:00)
[2019-12-11] MEDS: HYDROmorphone 2 MG/1 ML VIAL IV PRN (09:45)
[2019-12-11] MEDS: ONDANSETRON 4 MG/2 ML VIAL IV PRN (10:14)
[2019-12-11] MEDS ORDERED: hydrOXYzine HCL 25 MG/1 ML VIAL IM PRN (11:20)
[2019-12-11] MEDS ORDERED: ONDANSETRON 4 MG TABLET PO PRN (14:59)
[2019-12-11] MEDS ORDERED: NITROGLYCERIN SL 0.4 MG TABLET SL PRN (14:59)
[2019-12-11] MEDS: METOPROLOL TARTRATE 25 MG TABLET PO SCH ×2 (15:34→20:40)
[2019-12-11] MEDS: CLOPIDOGREL 75 MG TABLET PO SCH (15:34)
[2019-12-11] MEDS: FLUoxetine 20 MG CAPSULE PO SCH (15:34)
[2019-12-11] MEDS: CLORAZEPATE 3.75 MG TABLET PO SCH ×2 (15:34→20:41)
[2019-12-11] MEDS: TOLTERODINE 2 MG TABLET PO SCH (20:40)
[2019-12-11] MEDS: busPIRone 5 MG TABLET PO SCH (20:41)
[2019-12-11] MEDS: FENOFIBRATE 48 MG TABLET PO SCH (20:41)
[2019-12-12] MEDS: SODIUM CHLORIDE 0.9% 1,000 ML IV SCH ×2 (05:23→21:08)
[2019-12-12 05:53] LABS: Basophils % 0.4 % (0.0-0.8); Eosinophils # 0.1 10*3/uL (0.0-0.87); Eosinophils % 2.9 % (0.00-10.9); Hematocrit 24.6 VOL% (35.7-47.0); Hemoglobin 7.4 GM/DL (12.0-16.0); Immature Granulocytes % 0.7 %; Immature Granulocytes Absolute 0.02 #; Lymphocytes # 0.7 10*3/uL (1.4-4.0); Lymphocytes % 23.2 % (21.3-54.2); Mean Corpuscular HGB Conc 30.1 GM/DL (32-36); Mean Corpuscular Volume 99.6 FL (87-102); Mean Platelet Volume 10.6 FL (9.6-12.0); Monocytes % 8.9 % (1.7-12.7); Neutrophils % 63.9 % (38.7-73.9); Platelet Count 178 T/CUMM (130-400); Red Blood Count 2.47 MC/CUMM (3.8-5.5); Red Cell Distribution Width 13.7 % (9.3-17.3); White Blood Count 2.8 T/CUMM (4-12)
[2019-12-12 06:05] LABS: Osmolality,Calculated 299.8 MOS/KG (273-304)
[2019-12-12] MEDS: CLORAZEPATE 3.75 MG TABLET PO SCH ×2 (08:20→20:30)
[2019-12-12] MEDS: TOLTERODINE 2 MG TABLET PO SCH ×2 (08:20→20:29)
[2019-12-12] MEDS: CLOPIDOGREL 75 MG TABLET PO SCH (08:21)
[2019-12-12] MEDS: allopurinoL 100 MG TABLET PO SCH (08:21)
[2019-12-12] MEDS: FLUoxetine 20 MG CAPSULE PO SCH (08:21)
[2019-12-12] MEDS: DOCUSATE SODIUM 100 MG CAPSULE PO SCH ×2 (08:21→20:30)
[2019-12-12] MEDS: busPIRone 5 MG TABLET PO SCH ×2 (08:21→20:30)
[2019-12-12] MEDS: METOPROLOL TARTRATE 25 MG TABLET PO SCH ×2 (08:21→20:30)
[2019-12-12] MEDS: PANTOPRAZOLE 40 MG TABLET PO SCH (08:21)
[2019-12-12] MEDS: cefTRIAXone 1,000 MG in SYRINGE 1 EACH IV SCH (09:46)
[2019-12-12] MEDS: HYDROmorphone 2 MG/1 ML VIAL IV PRN (20:30)
[2019-12-12] MEDS: FENOFIBRATE 48 MG TABLET PO SCH (20:30)
[2019-12-13] MEDS: CLOPIDOGREL 75 MG TABLET PO SCH (08:44)
[2019-12-13] MEDS: DOCUSATE SODIUM 100 MG CAPSULE PO SCH ×2 (08:44→21:55)
[2019-12-13] MEDS: FLUoxetine 20 MG CAPSULE PO SCH (08:44)
[2019-12-13] MEDS: METOPROLOL TARTRATE 25 MG TABLET PO SCH ×2 (08:44→21:55)
[2019-12-13] MEDS: busPIRone 5 MG TABLET PO SCH ×2 (08:44→21:55)
[2019-12-13] MEDS: cefTRIAXone 1,000 MG in SYRINGE 1 EACH IV SCH (08:45)
[2019-12-13] MEDS: PANTOPRAZOLE 40 MG TABLET PO SCH (08:45)
[2019-12-13] MEDS: allopurinoL 100 MG TABLET PO SCH (08:45)
[2019-12-13] MEDS: CLORAZEPATE 3.75 MG TABLET PO SCH ×2 (08:45→21:55)
[2019-12-13] MEDS ORDERED: ALUMINUM/MAGNES/SIMETH MAX STR 30 ML UDCUP PO PRN (10:41)
[2019-12-13] MEDS: TOLTERODINE 2 MG TABLET PO SCH ×2 (14:06→21:56)
[2019-12-13] MEDS: SODIUM CHLORIDE 0.9% 1,000 ML IV SCH ×2 (17:16→17:17)
[2019-12-13] MEDS: FENOFIBRATE 48 MG TABLET PO SCH (21:55)
[2019-12-14] MEDS: SODIUM CHLORIDE 0.9% 1,000 ML IV SCH ×2 (09:17)
[2019-12-14] MEDS: cefTRIAXone 1,000 MG in SYRINGE 1 EACH IV SCH (09:19)
[2019-12-14] MEDS: DOCUSATE SODIUM 100 MG CAPSULE PO SCH ×2 (09:19→21:21)
[2019-12-14] MEDS: CLORAZEPATE 3.75 MG TABLET PO SCH ×2 (09:19→21:20)
[2019-12-14] MEDS: allopurinoL 100 MG TABLET PO SCH (09:19)
[2019-12-14] MEDS: PANTOPRAZOLE 40 MG TABLET PO SCH (09:19)
[2019-12-14] MEDS: METOPROLOL TARTRATE 25 MG TABLET PO SCH ×2 (09:19→21:21)
[2019-12-14] MEDS: FLUoxetine 20 MG CAPSULE PO SCH (09:19)
[2019-12-14] MEDS: busPIRone 5 MG TABLET PO SCH ×2 (09:19→21:21)
[2019-12-14] MEDS: TOLTERODINE 2 MG TABLET PO SCH ×2 (09:19→21:20)
[2019-12-14] MEDS: CLOPIDOGREL 75 MG TABLET PO SCH (09:19)
[2019-12-14] MEDS ORDERED: DOXYCYCLINE HYCLATE 100 MG CAPSULE PO SCH (21:00)
[2019-12-14] MEDS: FENOFIBRATE 48 MG TABLET PO SCH (21:21)
[2019-12-15] MEDS: HYDROmorphone 2 MG/1 ML VIAL IV PRN (01:25)
[2019-12-15] MEDS: SODIUM CHLORIDE 0.9% 1,000 ML IV SCH ×2 (04:00→06:33)
[2019-12-15 05:21] VITALS: BP 152/61
[2019-12-15 05:41] LABS: Basophils % 0.5 % (0.0-0.8); Eosinophils # 0.1 10*3/uL (0.0-0.87); Eosinophils % 3.7 % (0.00-10.9); Hemoglobin 7.2 GM/DL (12.0-16.0); Immature Granulocytes % 0.5 %; Immature Granulocytes Absolute 0.02 #; Lymphocytes # 0.9 10*3/uL (1.4-4.0); Lymphocytes % 23.8 % (21.3-54.2); Mean Corpuscular Volume 102.6 FL (87-102); Mean Platelet Volume 10.9 FL (9.6-12.0); Monocytes % 8.9 % (1.7-12.7); Neutrophils % 62.6 % (38.7-73.9); Platelet Count 155 T/CUMM (130-400); Red Blood Count 2.34 MC/CUMM (3.8-5.5); White Blood Count 3.8 T/CUMM (4-12)
[2019-12-15 06:11] LABS: Alanine Aminotransferase < 9 U/L (13-56); Albumin 2.3 G/DL (3.4-5.0); Alkaline Phosphatase 45 U/L (45-117); Aspartate Amino Transferase 12 U/L (0-37); Bilirubin,Total < 0.39 MG/DL (0.2-1.0); Blood Urea Nitrogen 44 MG/DL (7-18); Calcium 7.2 MG/DL (8.5-10.1); Estimated Glom Filtration Rate 15 ML/MIN; Glucose 86 MG/DL (74-106); Osmolality,Calculated 301.4 MOS/KG (273-304); Total Protein 5.2 G/DL (6.4-8.3)
== END 2019-12-15 07:36 | disposition home or self-care (01) | DRG 683 ==
LOC: N.ED 10:26 → N.EDINP 12:39 → N.5E 13:09
PROVIDERS: ADMIT Family Medicine; ATTEND Family Medicine

== ENCOUNTER 2019-12-20 07:51 | Inpatient (IN) ==
[2019-12-20 08:46] LABS: Basophils % 0.9 % (0.0-0.8); Eosinophils % 0.7 % (0.00-10.9); Hematocrit 28.1 VOL% (35.7-47.0); Hemoglobin 8.7 GM/DL (12.0-16.0); Immature Granulocytes % 0.2 %; Immature Granulocytes Absolute 0.01 #; Lymphocytes # 0.9 10*3/uL (1.4-4.0); Lymphocytes % 19.8 % (21.3-54.2); Mean Corpuscular Volume 98.3 FL (87-102); Mean Platelet Volume 11.1 FL (9.6-12.0); Monocytes % 6.8 % (1.7-12.7); Neutrophils % 71.6 % (38.7-73.9); Platelet Count 190 T/CUMM (130-400); Red Blood Count 2.86 MC/CUMM (3.8-5.5); Red Cell Distribution Width 14.5 % (9.3-17.3); White Blood Count 4.6 T/CUMM (4-12)
[2019-12-20] MEDS ORDERED: ALBUTEROL 2.5 MG/3 ML NEB RESP TX STA (08:48)
[2019-12-20 09:15] LABS: Albumin 3.2 G/DL (3.4-5.0); Bilirubin,Total 0.4 MG/DL (0.2-1.0); Calcium 8.6 MG/DL (8.5-10.1); Total Protein 6.6 G/DL (6.4-8.3)
[2019-12-20 09:21] LABS: Platelet Estimate Adequate
[2019-12-20 09:22] LABS: Hypochromasia 1+
[2019-12-20 09:24] LABS: Ovalocytes Slight
[2019-12-20] MEDS ORDERED: ONDANSETRON 4 MG/2 ML VIAL IV STA (10:29)
[2019-12-20] MEDS ORDERED: FUROSEMIDE 40 MG/4 ML VIAL IV STA (10:29)
[2019-12-20] MEDS ORDERED: MORPHINE 4 MG/1 ML VIAL IV STA (10:29)
[2019-12-20] MEDS ORDERED: SODIUM CHLORIDE 0.9% 1,000 ML IV SCH (10:30)
[2019-12-20 11:02] LABS: INR 1.1; PT Patient Result 11.8 SECS (9.8-11.9); Partial Thromboplastin Time 23.4 SECS (23.9-33.8)
[2019-12-20] MEDS ORDERED: INFLUENZA VIRUS VACCINE 0.5 ML SYRINGE IM ONE (13:08)
[2019-12-20] MEDS ORDERED: METOPROLOL TARTRATE 25 MG TABLET PO ONE (13:24)
[2019-12-20] MEDS: ENOXAPARIN 30 MG/0.3 ML SYRINGE SUBCUT SCH (13:33)
[2019-12-20] MEDS: ISOSORBIDE MONONITRATE 30 MG TABLET PO SCH (13:34)
[2019-12-20] MEDS: hydrALAZINE 25 MG TABLET PO SCH ×2 (15:26→21:20)
[2019-12-20] MEDS: FUROSEMIDE 40 MG/4 ML VIAL IV SCH (15:26)
[2019-12-20] MEDS ORDERED: hydrALAZINE 20 MG/1 ML VIAL IV ONE (16:09)
[2019-12-20] MEDS ORDERED: hydrALAZINE 20 MG/1 ML VIAL IV PRN (16:19)
[2019-12-20] MEDS ORDERED: NITROGLYCERIN SL 0.4 MG TABLET SL PRN (17:01)
[2019-12-20] MEDS: cefTRIAXone 1,000 MG in SYRINGE 1 EACH IV SCH (17:27)
[2019-12-20] MEDS: METOPROLOL TARTRATE 25 MG TABLET PO SCH (21:20)
[2019-12-20] MEDS: FENOFIBRATE 48 MG TABLET PO SCH (21:20)
[2019-12-20] MEDS: TOLTERODINE 2 MG TABLET PO SCH (21:20)
[2019-12-20] MEDS: DOCUSATE SODIUM 100 MG CAPSULE PO SCH (21:20)
[2019-12-20] MEDS: CLORAZEPATE 3.75 MG TABLET PO SCH (21:21)
[2019-12-20] MEDS: DOXYCYCLINE HYCLATE 100 MG CAPSULE PO SCH (21:21)
[2019-12-21 00:30] LABS: Bilirubin,Urine Negative (Negative); Blood, Urine Negative (Negative); Glucose,Urine (UA) Negative (Negative); Ketones,Urine Negative (Negative); Mucus,Urine Occasional /LPF (Occasional); Nitrite,Urine Negative (Negative); Protein,Urine 30 MG/DL; RBC,Urine 1 /HPF (0-4); Squamous Epithelial Cell,Urine Occasional /HPF (0-10); Urine Appearance CLEAR (Clear); Urine Color Straw (Yellow); Urine Specific Gravity 1.006 (1.001-1.035); Urine Urobilinogen < 2.0 EU/DL (0.2-1.0); WBC,Urine 3 /HPF (0-6)
[2019-12-21] MEDS ORDERED: CYANOCOBALAMIN 1000 MCG/1 ML VIAL IM SCH (09:00)
[2019-12-21] MEDS: CLORAZEPATE 3.75 MG TABLET PO SCH ×2 (09:45→21:46)
[2019-12-21] MEDS: TOLTERODINE 2 MG TABLET PO SCH ×2 (09:45→21:47)
[2019-12-21] MEDS: DOCUSATE SODIUM 100 MG CAPSULE PO SCH ×2 (09:45→21:46)
[2019-12-21] MEDS: CLOPIDOGREL 75 MG TABLET PO SCH (09:45)
[2019-12-21] MEDS: DOXYCYCLINE HYCLATE 100 MG CAPSULE PO SCH ×2 (09:46→21:47)
[2019-12-21] MEDS: allopurinoL 100 MG TABLET PO SCH (09:46)
[2019-12-21] MEDS: METOPROLOL TARTRATE 25 MG TABLET PO SCH (09:46)
[2019-12-21] MEDS: PANTOPRAZOLE 40 MG TABLET PO SCH (09:46)
[2019-12-21] MEDS: ISOSORBIDE MONONITRATE 30 MG TABLET PO SCH (09:46)
[2019-12-21] MEDS: FUROSEMIDE 40 MG/4 ML VIAL IV SCH (09:47)
[2019-12-21] MEDS: FLUoxetine 20 MG CAPSULE PO SCH (09:47)
[2019-12-21] MEDS: hydrALAZINE 25 MG TABLET PO SCH ×3 (09:47→21:47)
[2019-12-21] MEDS: ENOXAPARIN 30 MG/0.3 ML SYRINGE SUBCUT SCH (10:14)
[2019-12-21] MEDS: cefTRIAXone 1,000 MG in SYRINGE 1 EACH IV SCH (18:42)
[2019-12-21] MEDS: FENOFIBRATE 48 MG TABLET PO SCH (21:47)
[2019-12-21] MEDS: METOPROLOL TARTRATE 50 MG TABLET PO SCH (21:48)
[2019-12-22 05:37] LABS: Hematocrit 23.6 VOL% (35.7-47.0); Hemoglobin 7.5 GM/DL (12.0-16.0); Immature Granulocytes % 0.3 %; Immature Granulocytes Absolute 0.01 #; Lymphocytes # 0.8 10*3/uL (1.4-4.0); Mean Corpuscular HGB Conc 31.8 GM/DL (32-36); Mean Corpuscular Volume 96.7 FL (87-102); Mean Platelet Volume 11.2 FL (9.6-12.0); Monocytes % 13.1 % (1.7-12.7); Neutrophils % 59.6 % (38.7-73.9); Platelet Count 178 T/CUMM (130-400); Red Blood Count 2.44 MC/CUMM (3.8-5.5); Red Cell Distribution Width 14.5 % (9.3-17.3); White Blood Count 3.1 T/CUMM (4-12)
[2019-12-22 05:53] LABS: Calcium 7.8 MG/DL (8.5-10.1); Osmolality,Calculated 314.1 MOS/KG (273-304)
[2019-12-22 05:55] LABS: Calcium 7.8 MG/DL (8.5-10.1); Osmolality,Calculated 312.1 MOS/KG (273-304)
[2019-12-22] MEDS: DOXYCYCLINE HYCLATE 100 MG CAPSULE PO SCH ×2 (10:17→21:04)
[2019-12-22] MEDS: hydrALAZINE 25 MG TABLET PO SCH ×3 (10:17→21:07)
[2019-12-22] MEDS: DOCUSATE SODIUM 100 MG CAPSULE PO SCH ×2 (10:18→21:05)
[2019-12-22] MEDS: ISOSORBIDE MONONITRATE 30 MG TABLET PO SCH (10:18)
[2019-12-22] MEDS: PANTOPRAZOLE 40 MG TABLET PO SCH (10:18)
[2019-12-22] MEDS: METOPROLOL TARTRATE 50 MG TABLET PO SCH ×2 (10:18→21:06)
[2019-12-22] MEDS: CLORAZEPATE 3.75 MG TABLET PO SCH ×2 (10:18→21:04)
[2019-12-22] MEDS: CLOPIDOGREL 75 MG TABLET PO SCH (10:18)
[2019-12-22] MEDS: TOLTERODINE 2 MG TABLET PO SCH ×2 (10:19→21:04)
[2019-12-22] MEDS: FUROSEMIDE 80 MG TABLET PO SCH (10:19)
[2019-12-22] MEDS: FLUoxetine 20 MG CAPSULE PO SCH (10:20)
[2019-12-22] MEDS: ENOXAPARIN 30 MG/0.3 ML SYRINGE SUBCUT SCH (10:23)
[2019-12-22] MEDS: allopurinoL 100 MG TABLET PO SCH (11:03)
[2019-12-22] MEDS: cefTRIAXone 1,000 MG in SYRINGE 1 EACH IV SCH (17:22)
[2019-12-22] MEDS: ACETAMINOPHEN 325 MG TABLET PO PRN (21:05)
[2019-12-22] MEDS: FENOFIBRATE 48 MG TABLET PO SCH (21:06)
[2019-12-23 05:16] LABS: Basophils % 0.9 % (0.0-0.8); Eosinophils % 1.8 % (0.00-10.9); Hematocrit 24.6 VOL% (35.7-47.0); Hemoglobin 7.7 GM/DL (12.0-16.0); Lymphocytes # 0.9 10*3/uL (1.4-4.0); Lymphocytes % 42.3 % (21.3-54.2); Mean Corpuscular HGB Conc 31.3 GM/DL (32-36); Mean Corpuscular Volume 96.5 FL (87-102); Mean Platelet Volume 10.9 FL (9.6-12.0); Monocytes % 15.5 % (1.7-12.7); Neutrophils % 39.5 % (38.7-73.9); Platelet Count 167 T/CUMM (130-400); Red Blood Count 2.55 MC/CUMM (3.8-5.5); Red Cell Distribution Width 14.1 % (9.3-17.3); White Blood Count 2.2 T/CUMM (4-12)
[2019-12-23 05:34] LABS: Calcium 7.6 MG/DL (8.5-10.1); Osmolality,Calculated 315.4 MOS/KG (273-304)
[2019-12-23 06:00] LABS: Microcytosis 1+; Ovalocytes Few; Platelet Estimate Adequate
[2019-12-23] MEDS: DOCUSATE SODIUM 100 MG CAPSULE PO SCH ×2 (09:31→21:19)
[2019-12-23] MEDS: CLOPIDOGREL 75 MG TABLET PO SCH (09:31)
[2019-12-23] MEDS: PANTOPRAZOLE 40 MG TABLET PO SCH (09:31)
[2019-12-23] MEDS: FUROSEMIDE 80 MG TABLET PO SCH (09:31)
[2019-12-23] MEDS: METOPROLOL TARTRATE 50 MG TABLET PO SCH ×2 (09:32→21:20)
[2019-12-23] MEDS: ISOSORBIDE MONONITRATE 30 MG TABLET PO SCH (09:32)
[2019-12-23] MEDS: TOLTERODINE 2 MG TABLET PO SCH ×2 (09:32→21:19)
[2019-12-23] MEDS: hydrALAZINE 25 MG TABLET PO SCH ×3 (09:32→21:20)
[2019-12-23] MEDS: FLUoxetine 20 MG CAPSULE PO SCH (09:32)
[2019-12-23] MEDS: CLORAZEPATE 3.75 MG TABLET PO SCH ×2 (09:33→21:17)
[2019-12-23] MEDS: DOXYCYCLINE HYCLATE 100 MG CAPSULE PO SCH ×2 (09:33→21:29)
[2019-12-23] MEDS: allopurinoL 100 MG TABLET PO SCH (09:33)
[2019-12-23] MEDS: ENOXAPARIN 30 MG/0.3 ML SYRINGE SUBCUT SCH (09:33)
[2019-12-23] MEDS: ONDANSETRON 4 MG/2 ML VIAL IV PRN (10:44)
[2019-12-23 16:11] LABS: Bilirubin,Urine Negative (Negative); Blood, Urine Negative (Negative); Glucose,Urine (UA) Negative (Negative); Ketones,Urine Negative (Negative); Mucus,Urine Occasional /LPF (Occasional); Nitrite,Urine Negative (Negative); Protein,Urine Negative; RBC,Urine 1 /HPF (0-4); Squamous Epithelial Cell,Urine Occasional /HPF (0-10); Urine Appearance CLEAR (Clear); Urine Color Straw (Yellow); Urine Specific Gravity 1.006 (1.001-1.035); Urine Urobilinogen < 2.0 EU/DL (0.2-1.0); WBC,Urine 2 /HPF (0-6)
[2019-12-23] MEDS: ALUMINUM/MAGNES/SIMETH MAX STR 30 ML UDCUP PO PRN (16:58)
[2019-12-23] MEDS: cefTRIAXone 1,000 MG in SYRINGE 1 EACH IV SCH (17:00)
[2019-12-23] MEDS: FENOFIBRATE 48 MG TABLET PO SCH (21:17)
[2019-12-23] MEDS: ACETAMINOPHEN 325 MG TABLET PO PRN (21:17)
[2019-12-24 05:22] LABS: Basophils % 0.5 % (0.0-0.8); Eosinophils % 0.5 % (0.00-10.9); Hematocrit 26.9 VOL% (35.7-47.0); Hemoglobin 8.6 GM/DL (12.0-16.0); Immature Granulocytes % 0.2 %; Immature Granulocytes Absolute 0.01 #; Lymphocytes # 0.6 10*3/uL (1.4-4.0); Lymphocytes % 13.3 % (21.3-54.2); Mean Corpuscular Volume 95.1 FL (87-102); Monocytes % 9.3 % (1.7-12.7); Neutrophils % 76.2 % (38.7-73.9); Platelet Count 171 T/CUMM (130-400); Red Blood Count 2.83 MC/CUMM (3.8-5.5); Red Cell Distribution Width 13.9 % (9.3-17.3); White Blood Count 4.3 T/CUMM (4-12)
[2019-12-24 05:55] LABS: Calcium 7.7 MG/DL (8.5-10.1); Osmolality,Calculated 318.5 MOS/KG (273-304)
[2019-12-24 07:17] LABS: Uric Acid 8.1 MG/DL (2.6-6.0)
[2019-12-24] MEDS: CLORAZEPATE 3.75 MG TABLET PO SCH ×2 (08:59→21:28)
[2019-12-24] MEDS: ISOSORBIDE MONONITRATE 30 MG TABLET PO SCH (08:59)
[2019-12-24] MEDS: CLOPIDOGREL 75 MG TABLET PO SCH (08:59)
[2019-12-24] MEDS: TOLTERODINE 2 MG TABLET PO SCH ×2 (08:59→21:27)
[2019-12-24] MEDS: FUROSEMIDE 80 MG TABLET PO SCH (08:59)
[2019-12-24] MEDS: DOXYCYCLINE HYCLATE 100 MG CAPSULE PO SCH ×2 (08:59→21:27)
[2019-12-24] MEDS: PANTOPRAZOLE 40 MG TABLET PO SCH (08:59)
[2019-12-24] MEDS: METOPROLOL TARTRATE 50 MG TABLET PO SCH ×2 (09:00→21:29)
[2019-12-24] MEDS: DOCUSATE SODIUM 100 MG CAPSULE PO SCH ×2 (09:00→21:28)
[2019-12-24] MEDS: FLUoxetine 20 MG CAPSULE PO SCH (09:00)
[2019-12-24] MEDS: hydrALAZINE 25 MG TABLET PO SCH ×3 (09:00→21:28)
[2019-12-24] MEDS: allopurinoL 100 MG TABLET PO SCH (09:00)
[2019-12-24] MEDS: ENOXAPARIN 30 MG/0.3 ML SYRINGE SUBCUT SCH (09:59)
[2019-12-24] MEDS: ALUMINUM/MAGNES/SIMETH MAX STR 30 ML UDCUP PO PRN (10:56)
[2019-12-24] MEDS: ACETAMINOPHEN 325 MG TABLET PO PRN (10:56)
[2019-12-24] MEDS ORDERED: BISACODYL 10 MG SUPP RECTAL PRN (12:01)
[2019-12-24] MEDS ORDERED: MAGNESIUM HYDROXIDE SUSP 30 ML UDCUP PO PRN (12:01)
[2019-12-24] MEDS: ONDANSETRON 4 MG/2 ML VIAL IV PRN (15:52)
[2019-12-24] MEDS: SEVELAMER CARBONATE 800 MG TABLET PO SCH (16:40)
[2019-12-24] MEDS: cefTRIAXone 1,000 MG in SYRINGE 1 EACH IV SCH (17:12)
[2019-12-24] MEDS: FENOFIBRATE 48 MG TABLET PO SCH (21:29)
[2019-12-25 05:36] LABS: Basophils % 0.4 % (0.0-0.8); Eosinophils % 0.4 % (0.00-10.9); Hematocrit 27.8 VOL% (35.7-47.0); Immature Granulocytes % 0.2 %; Immature Granulocytes Absolute 0.01 #; Lymphocytes # 0.5 10*3/uL (1.4-4.0); Lymphocytes % 9.6 % (21.3-54.2); Mean Corpuscular HGB Conc 32.4 GM/DL (32-36); Mean Corpuscular Volume 94.6 FL (87-102); Mean Platelet Volume 11.7 FL (9.6-12.0); Monocytes % 7.7 % (1.7-12.7); Neutrophils % 81.7 % (38.7-73.9); Platelet Count 141 T/CUMM (130-400); Red Blood Count 2.94 MC/CUMM (3.8-5.5); Red Cell Distribution Width 13.9 % (9.3-17.3); White Blood Count 5.3 T/CUMM (4-12)
[2019-12-25 06:07] LABS: Calcium 7.4 MG/DL (8.5-10.1); Osmolality,Calculated 324.3 MOS/KG (273-304)
[2019-12-25] MEDS: SEVELAMER CARBONATE 800 MG TABLET PO SCH ×3 (09:18→17:44)
[2019-12-25] MEDS: CLOPIDOGREL 75 MG TABLET PO SCH (09:18)
[2019-12-25] MEDS: ISOSORBIDE MONONITRATE 30 MG TABLET PO SCH (09:19)
[2019-12-25] MEDS: hydrALAZINE 25 MG TABLET PO SCH ×3 (09:19→20:57)
[2019-12-25] MEDS: TOLTERODINE 2 MG TABLET PO SCH ×2 (09:19→20:53)
[2019-12-25] MEDS: CLORAZEPATE 3.75 MG TABLET PO SCH ×2 (09:19→20:57)
[2019-12-25] MEDS: DOCUSATE SODIUM 100 MG CAPSULE PO SCH ×2 (09:19→20:57)
[2019-12-25] MEDS: FLUoxetine 20 MG CAPSULE PO SCH (09:19)
[2019-12-25] MEDS: FUROSEMIDE 80 MG TABLET PO SCH (09:19)
[2019-12-25] MEDS: allopurinoL 100 MG TABLET PO SCH (09:20)
[2019-12-25] MEDS: PANTOPRAZOLE 40 MG TABLET PO SCH (09:20)
[2019-12-25] MEDS: METOPROLOL TARTRATE 50 MG TABLET PO SCH ×2 (09:20→20:57)
[2019-12-25] MEDS: DOXYCYCLINE HYCLATE 100 MG CAPSULE PO SCH ×2 (09:20→20:53)
[2019-12-25] MEDS: ENOXAPARIN 30 MG/0.3 ML SYRINGE SUBCUT SCH (09:33)
[2019-12-25] MEDS: cefTRIAXone 1,000 MG in SYRINGE 1 EACH IV SCH (17:43)
[2019-12-25] MEDS: FENOFIBRATE 48 MG TABLET PO SCH (20:57)
[2019-12-26 05:52] LABS: Calcium 7.8 MG/DL (8.5-10.1); Osmolality,Calculated 324.8 MOS/KG (273-304)
[2019-12-26 06:46] LABS: Hepatitis B Core IgM Quant 0.08 Index; Hepatitis B Surface Ag Quant < 0.10 Index; Hepatitis B Surface Ag Result Negative (Negative); Hepatitis C Virus Ab Quant 0.06 Index; Hepatitis C Virus Ab Result Negative (Negative)
[2019-12-26] MEDS: DOXYCYCLINE HYCLATE 100 MG CAPSULE PO SCH ×2 (09:15→22:19)
[2019-12-26] MEDS: CLOPIDOGREL 75 MG TABLET PO SCH (09:15)
[2019-12-26] MEDS: METOPROLOL TARTRATE 50 MG TABLET PO SCH ×2 (09:15→22:20)
[2019-12-26] MEDS: allopurinoL 100 MG TABLET PO SCH (09:15)
[2019-12-26] MEDS: FLUoxetine 20 MG CAPSULE PO SCH (09:15)
[2019-12-26] MEDS: PANTOPRAZOLE 40 MG TABLET PO SCH (09:16)
[2019-12-26] MEDS: TOLTERODINE 2 MG TABLET PO SCH ×2 (09:16→22:36)
[2019-12-26] MEDS: ISOSORBIDE MONONITRATE 30 MG TABLET PO SCH (09:16)
[2019-12-26] MEDS: DOCUSATE SODIUM 100 MG CAPSULE PO SCH ×2 (09:17→22:19)
[2019-12-26] MEDS: hydrALAZINE 25 MG TABLET PO SCH ×3 (09:17→22:19)
[2019-12-26] MEDS: SEVELAMER CARBONATE 800 MG TABLET PO SCH ×3 (09:18→17:17)
[2019-12-26] MEDS: CLORAZEPATE 3.75 MG TABLET PO SCH ×2 (09:30→22:19)
[2019-12-26] MEDS: ENOXAPARIN 30 MG/0.3 ML SYRINGE SUBCUT SCH (09:33)
[2019-12-26] MEDS ORDERED: ceFAZolin 1,000 MG in SYRINGE 1 EACH IV ONE (10:54)
[2019-12-26] MEDS ORDERED: HEPARIN 5,000 UNIT/1 ML VIAL ONE (12:55)
[2019-12-26] MEDS ORDERED: LIDOCAINE 1%/EPI INJ 20 ML VIAL ONE (12:55)
[2019-12-26] MEDS ORDERED: BUPIVACAINE MPF 0.25% 30 ML VIAL ONE (12:55)
[2019-12-26] MEDS ORDERED: LIDOCAINE 2% 5 ML VIAL ONE (14:06)
[2019-12-26] MEDS ORDERED: SODIUM CHLORIDE 0.9% 250 ML IV ONE (14:06)
[2019-12-26] MEDS ORDERED: propofoL 200 MG/20 ML VIAL IV ONE (14:06)
[2019-12-26] MEDS: cefTRIAXone 1,000 MG in SYRINGE 1 EACH IV SCH (17:28)
[2019-12-26] MEDS ORDERED: HEPARIN 10,000 UNIT/10 ML VIAL IV SCH (17:45)
[2019-12-26] MEDS: FENOFIBRATE 48 MG TABLET PO SCH (22:19)
[2019-12-27 06:22] LABS: Calcium 7.6 MG/DL (8.5-10.1); Osmolality,Calculated 296.5 MOS/KG (273-304)
[2019-12-27] MEDS: SEVELAMER CARBONATE 800 MG TABLET PO SCH ×3 (09:38→17:58)
[2019-12-27] MEDS: TOLTERODINE 2 MG TABLET PO SCH ×2 (09:39→21:00)
[2019-12-27] MEDS: DOCUSATE SODIUM 100 MG CAPSULE PO SCH ×2 (09:39→21:05)
[2019-12-27] MEDS: hydrALAZINE 25 MG TABLET PO SCH ×3 (09:39→21:05)
[2019-12-27] MEDS: ISOSORBIDE MONONITRATE 30 MG TABLET PO SCH (09:39)
[2019-12-27] MEDS: PANTOPRAZOLE 40 MG TABLET PO SCH (09:40)
[2019-12-27] MEDS: CLOPIDOGREL 75 MG TABLET PO SCH (09:40)
[2019-12-27] MEDS: FLUoxetine 20 MG CAPSULE PO SCH (09:40)
[2019-12-27] MEDS: CLORAZEPATE 3.75 MG TABLET PO SCH ×2 (09:41→21:00)
[2019-12-27] MEDS: allopurinoL 100 MG TABLET PO SCH (09:41)
[2019-12-27] MEDS: METOPROLOL TARTRATE 50 MG TABLET PO SCH ×2 (09:53→21:03)
[2019-12-27] MEDS: cefTRIAXone 1,000 MG in SYRINGE 1 EACH IV SCH ×2 (17:58→20:59)
[2019-12-27] MEDS: FENOFIBRATE 48 MG TABLET PO SCH (21:04)
[2019-12-28 07:21] LABS: Calcium 7.8 MG/DL (8.5-10.1); Osmolality,Calculated 285.7 MOS/KG (273-304)
[2019-12-28] MEDS: SEVELAMER CARBONATE 800 MG TABLET PO SCH ×3 (10:29→18:41)
[2019-12-28] MEDS: DOCUSATE SODIUM 100 MG CAPSULE PO SCH ×2 (10:30→23:32)
[2019-12-28] MEDS: hydrALAZINE 25 MG TABLET PO SCH ×3 (10:30→23:31)
[2019-12-28] MEDS: ISOSORBIDE MONONITRATE 30 MG TABLET PO SCH (10:30)
[2019-12-28] MEDS: TOLTERODINE 2 MG TABLET PO SCH ×2 (10:30→23:32)
[2019-12-28] MEDS: PANTOPRAZOLE 40 MG TABLET PO SCH (10:31)
[2019-12-28] MEDS: CLOPIDOGREL 75 MG TABLET PO SCH (10:31)
[2019-12-28] MEDS: allopurinoL 100 MG TABLET PO SCH (10:31)
[2019-12-28] MEDS: METOPROLOL TARTRATE 50 MG TABLET PO SCH ×2 (10:31→23:32)
[2019-12-28] MEDS: FLUoxetine 20 MG CAPSULE PO SCH (10:31)
[2019-12-28] MEDS: MENTHOL/ZINC OXIDE OINT 71 GM JAR TOP SCH (23:32)
[2019-12-28] MEDS: FENOFIBRATE 48 MG TABLET PO SCH (23:32)
[2019-12-29 06:04] LABS: Calcium 7.8 MG/DL (8.5-10.1); Osmolality,Calculated 291.7 MOS/KG (273-304)
[2019-12-29] MEDS: TOLTERODINE 2 MG TABLET PO SCH ×2 (09:09→23:42)
[2019-12-29] MEDS: SEVELAMER CARBONATE 800 MG TABLET PO SCH ×3 (09:09→17:09)
[2019-12-29] MEDS: DOCUSATE SODIUM 100 MG CAPSULE PO SCH ×2 (09:10→23:48)
[2019-12-29] MEDS: FLUoxetine 20 MG CAPSULE PO SCH (09:10)
[2019-12-29] MEDS: CLOPIDOGREL 75 MG TABLET PO SCH (09:10)
[2019-12-29] MEDS: PANTOPRAZOLE 40 MG TABLET PO SCH (09:10)
[2019-12-29] MEDS: hydrALAZINE 25 MG TABLET PO SCH ×3 (09:10→23:41)
[2019-12-29] MEDS: METOPROLOL TARTRATE 50 MG TABLET PO SCH ×2 (09:10→23:42)
[2019-12-29] MEDS: allopurinoL 100 MG TABLET PO SCH (09:10)
[2019-12-29] MEDS: ISOSORBIDE MONONITRATE 30 MG TABLET PO SCH (09:10)
[2019-12-29] MEDS: MENTHOL/ZINC OXIDE OINT 71 GM JAR TOP SCH ×2 (09:11→23:47)
[2019-12-29] MEDS: ONDANSETRON 4 MG/2 ML VIAL IV PRN (23:40)
[2019-12-29] MEDS: FENOFIBRATE 48 MG TABLET PO SCH (23:43)
[2019-12-30 05:50] LABS: Calcium 7.5 MG/DL (8.5-10.1); Osmolality,Calculated 277.8 MOS/KG (273-304)
[2019-12-30] MEDS: SEVELAMER CARBONATE 800 MG TABLET PO SCH ×3 (08:23→17:00)
[2019-12-30] MEDS: hydrALAZINE 25 MG TABLET PO SCH ×3 (08:24→22:45)
[2019-12-30] MEDS: MENTHOL/ZINC OXIDE OINT 71 GM JAR TOP SCH ×2 (08:24→22:51)
[2019-12-30] MEDS: METOPROLOL TARTRATE 50 MG TABLET PO SCH ×2 (08:24→22:23)
[2019-12-30] MEDS: TOLTERODINE 2 MG TABLET PO SCH ×2 (08:24→22:45)
[2019-12-30] MEDS: CLOPIDOGREL 75 MG TABLET PO SCH (08:24)
[2019-12-30] MEDS: ISOSORBIDE MONONITRATE 30 MG TABLET PO SCH (08:24)
[2019-12-30] MEDS: FLUoxetine 20 MG CAPSULE PO SCH (08:24)
[2019-12-30] MEDS: allopurinoL 100 MG TABLET PO SCH (08:24)
[2019-12-30] MEDS: PANTOPRAZOLE 40 MG TABLET PO SCH (08:24)
[2019-12-30] MEDS: DOCUSATE SODIUM 100 MG CAPSULE PO SCH ×2 (08:25→22:51)
[2019-12-30] MEDS: FENOFIBRATE 48 MG TABLET PO SCH (22:46)
[2019-12-31 07:30] LABS: Calcium 7.7 MG/DL (8.5-10.1); Osmolality,Calculated 280.2 MOS/KG (273-304)
[2019-12-31] MEDS: SEVELAMER CARBONATE 800 MG TABLET PO SCH ×4 (08:45→17:58)
[2019-12-31] MEDS: TOLTERODINE 2 MG TABLET PO SCH ×2 (08:47→22:50)
[2019-12-31] MEDS: PANTOPRAZOLE 40 MG TABLET PO SCH (08:49)
[2019-12-31] MEDS: allopurinoL 100 MG TABLET PO SCH (08:49)
[2019-12-31] MEDS: CLOPIDOGREL 75 MG TABLET PO SCH (08:49)
[2019-12-31] MEDS: DOCUSATE SODIUM 100 MG CAPSULE PO SCH ×2 (08:50→22:50)
[2019-12-31] MEDS: ISOSORBIDE MONONITRATE 30 MG TABLET PO SCH (08:50)
[2019-12-31] MEDS: METOPROLOL TARTRATE 50 MG TABLET PO SCH ×2 (08:50→22:50)
[2019-12-31] MEDS: FLUoxetine 20 MG CAPSULE PO SCH (08:50)
[2019-12-31] MEDS: MENTHOL/ZINC OXIDE OINT 71 GM JAR TOP SCH ×2 (08:52→22:50)
[2019-12-31] MEDS: hydrALAZINE 25 MG TABLET PO SCH ×3 (14:41→22:50)
[2019-12-31] MEDS: FENOFIBRATE 48 MG TABLET PO SCH (22:50)
[2020-01-01] MEDS: SEVELAMER CARBONATE 800 MG TABLET PO SCH ×3 (10:01→15:36)
[2020-01-01] MEDS: hydrALAZINE 25 MG TABLET PO SCH ×2 (12:36→15:38)
[2020-01-01] MEDS: ISOSORBIDE MONONITRATE 30 MG TABLET PO SCH ×2 (12:36→15:37)
[2020-01-01] MEDS: METOPROLOL TARTRATE 50 MG TABLET PO SCH ×2 (12:37→15:37)
[2020-01-01] MEDS: TOLTERODINE 2 MG TABLET PO SCH (15:35)
[2020-01-01] MEDS: MENTHOL/ZINC OXIDE OINT 71 GM JAR TOP SCH (15:35)
[2020-01-01] MEDS: DOCUSATE SODIUM 100 MG CAPSULE PO SCH (15:35)
[2020-01-01] MEDS: PANTOPRAZOLE 40 MG TABLET PO SCH (15:36)
[2020-01-01] MEDS: CLOPIDOGREL 75 MG TABLET PO SCH (15:36)
[2020-01-01] MEDS: allopurinoL 100 MG TABLET PO SCH (15:36)
[2020-01-01] MEDS: FLUoxetine 20 MG CAPSULE PO SCH (15:37)
[2020-01-01 16:16] VITALS: BP 146/58
== END 2020-01-01 16:21 | disposition home health service (06) | DRG 673 ==
LOC: N.ED 07:51 → INTOOBSV 10:26 → N.EDINP 10:26 → N.TELES 12:40
PROVIDERS: ADMIT Family Medicine; ATTEND Family Medicine

== ENCOUNTER 2020-01-13 18:35 | Observation (INO) ==
[2020-01-13 19:37] LABS: Basophils % 0.3 % (0.0-0.8); Eosinophils # 0.1 10*3/uL (0.0-0.87); Eosinophils % 1.8 % (0.00-10.9); Hematocrit 21.4 VOL% (35.7-47.0); Hemoglobin 6.8 GM/DL (12.0-16.0); Immature Granulocytes % 0.3 %; Immature Granulocytes Absolute 0.01 #; Lymphocytes % 29.1 % (21.3-54.2); Mean Corpuscular HGB Conc 31.8 GM/DL (32-36); Mean Corpuscular Volume 93.9 FL (87-102); Mean Platelet Volume 11.4 FL (9.6-12.0); Monocytes % 10.7 % (1.7-12.7); Neutrophils % 57.8 % (38.7-73.9); Platelet Count 133 T/CUMM (130-400); Red Blood Count 2.28 MC/CUMM (3.8-5.5); Red Cell Distribution Width 13.2 % (9.3-17.3); White Blood Count 3.4 T/CUMM (4-12)
[2020-01-13 19:47] LABS: Bacteria,Urine Occasional /HPF (Few); Bilirubin,Urine Negative (Negative); Blood, Urine Negative (Negative); Glucose,Urine (UA) Negative (Negative); Ketones,Urine Negative (Negative); Mucus,Urine Occasional /LPF (Occasional); Nitrite,Urine Negative (Negative); Protein,Urine 100 MG/DL; RBC,Urine 1 /HPF (0-4); Squamous Epithelial Cell,Urine Occasional /HPF (0-10); Urine Appearance Slightly Hazy (Clear); Urine Color Yellow (Yellow); Urine Specific Gravity 1.012 (1.001-1.035); Urine Urobilinogen < 2.0 EU/DL (0.2-1.0); WBC,Urine 40 /HPF (0-6)
[2020-01-13 20:02] LABS: Bilirubin,Total 0.4 MG/DL (0.2-1.0); Calcium 7.6 MG/DL (8.5-10.1); Osmolality,Calculated 276.2 MOS/KG (273-304); Total Protein 4.9 G/DL (6.4-8.3)
[2020-01-13] MEDS ORDERED: ONDANSETRON 4 MG/2 ML VIAL IV PRN (21:11)
[2020-01-13] MEDS ORDERED: ACETAMINOPHEN 325 MG TABLET PO PRN (21:11)
[2020-01-13] MEDS ORDERED: SODIUM CHLORIDE 0.9% 1,000 ML IV PRN (21:17)
[2020-01-13] MEDS ORDERED: FUROSEMIDE 40 MG/4 ML VIAL IV ONE (21:19)
[2020-01-14 06:53] LABS: Basophils % 0.4 % (0.0-0.8); Eosinophils # 0.1 10*3/uL (0.0-0.87); Eosinophils % 2.1 % (0.00-10.9); Hematocrit 19.8 VOL% (35.7-47.0); Immature Granulocytes % 0.4 %; Immature Granulocytes Absolute 0.01 #; Lymphocytes % 40.2 % (21.3-54.2); Mean Corpuscular HGB Conc 31.3 GM/DL (32-36); Mean Corpuscular Volume 94.3 FL (87-102); Mean Platelet Volume 11.5 FL (9.6-12.0); Monocytes % 12.1 % (1.7-12.7); Neutrophils % 44.8 % (38.7-73.9); Platelet Count 90 T/CUMM (130-400); Red Cell Distribution Width 13.2 % (9.3-17.3); White Blood Count 2.4 T/CUMM (4-12)
[2020-01-14 06:57] LABS: Hemoglobin 6.2 GM/DL (12.0-16.0)
[2020-01-14 07:12] LABS: Albumin 1.8 G/DL (3.4-5.0); Bilirubin,Total 0.8 MG/DL (0.2-1.0); Calcium 7.6 MG/DL (8.5-10.1); Osmolality,Calculated 277.1 MOS/KG (273-304); Total Protein 4.4 G/DL (6.4-8.3)
[2020-01-14 07:30] LABS: Platelet Estimate Decreased
[2020-01-14 07:31] LABS: Anisocytosis 1+; Ovalocytes Few
[2020-01-14] MEDS: PANTOPRAZOLE 40 MG TABLET PO SCH (09:13)
[2020-01-14] MEDS: DOCUSATE SODIUM 100 MG CAPSULE PO SCH ×2 (09:13→20:26)
[2020-01-14] MEDS ORDERED: HEPARIN 10,000 UNIT/10 ML VIAL IV SCH (12:30)
[2020-01-14] MEDS ORDERED: NITROGLYCERIN SL 0.4 MG TABLET SL PRN (15:27)
[2020-01-14 16:31] LABS: Hematocrit 35.5 VOL% (35.7-47.0); Hemoglobin 11.7 GM/DL (12.0-16.0)
[2020-01-14] MEDS: SEVELAMER CARBONATE 800 MG TABLET PO SCH (16:34)
[2020-01-14] MEDS: METOPROLOL TARTRATE 50 MG TABLET PO SCH (20:26)
[2020-01-14] MEDS: hydrALAZINE 25 MG TABLET PO SCH (20:26)
[2020-01-14] MEDS: CLORAZEPATE 3.75 MG TABLET PO SCH (20:26)
[2020-01-14] MEDS: TOLTERODINE 2 MG TABLET PO SCH (20:26)
[2020-01-14] MEDS ORDERED: FENOFIBRATE 48 MG TABLET PO SCH (21:00)
[2020-01-15 06:40] LABS: Basophils % 0.8 % (0.0-0.8); Eosinophils % 1.2 % (0.00-10.9); Hematocrit 30.9 VOL% (35.7-47.0); Hemoglobin 10.4 GM/DL (12.0-16.0); Immature Granulocytes % 0.4 %; Immature Granulocytes Absolute 0.01 #; Lymphocytes # 0.9 10*3/uL (1.4-4.0); Lymphocytes % 36.5 % (21.3-54.2); Mean Corpuscular HGB Conc 33.7 GM/DL (32-36); Mean Corpuscular Volume 91.4 FL (87-102); Mean Platelet Volume 12.2 FL (9.6-12.0); Monocytes % 12.9 % (1.7-12.7); Neutrophils % 48.2 % (38.7-73.9); Red Blood Count 3.38 MC/CUMM (3.8-5.5); White Blood Count 2.6 T/CUMM (4-12)
[2020-01-15 06:41] LABS: Platelet Count 79 T/CUMM (130-400)
[2020-01-15 07:14] LABS: Albumin 1.7 G/DL (3.4-5.0); Bilirubin,Total 1.5 MG/DL (0.2-1.0); Calcium 7.6 MG/DL (8.5-10.1); Ferritin 221.5 ng/ml (8-252); Osmolality,Calculated 274.7 MOS/KG (273-304); Risk Ratio 2.07; Thyroid Stimulating Hormone 1.27 uIU/ml (0.358-3.74); Total Protein 4.6 G/DL (6.4-8.3); VLDL CHOLESTEROL 13.8 MG/DL
[2020-01-15 07:33] LABS: Anisocytosis 1+; Burr Cells Few; Ovalocytes Few; Platelet Estimate Decreased; Poikilocytosis Slight
[2020-01-15 07:34] LABS: Macrocytosis Slight
[2020-01-15 08:33] VITALS: BP 163/79
[2020-01-15] MEDS: PANTOPRAZOLE 40 MG TABLET PO SCH (08:52)
[2020-01-15] MEDS: METOPROLOL TARTRATE 50 MG TABLET PO SCH (08:52)
[2020-01-15] MEDS: DOCUSATE SODIUM 100 MG CAPSULE PO SCH (08:52)
[2020-01-15] MEDS: CLORAZEPATE 3.75 MG TABLET PO SCH (08:52)
[2020-01-15] MEDS: hydrALAZINE 25 MG TABLET PO SCH (08:52)
[2020-01-15] MEDS: TOLTERODINE 2 MG TABLET PO SCH (08:52)
[2020-01-15] MEDS: SEVELAMER CARBONATE 800 MG TABLET PO SCH (08:53)
[2020-01-15] MEDS ORDERED: CYANOCOBALAMIN 1000 MCG/1 ML VIAL IM SCH (09:00)
[2020-01-15] MEDS ORDERED: FLUoxetine 20 MG CAPSULE PO SCH (09:00)
[2020-01-15] MEDS ORDERED: CLOPIDOGREL 75 MG TABLET PO SCH (09:00)
[2020-01-15] MEDS ORDERED: allopurinoL 100 MG TABLET PO SCH (09:00)
[2020-01-15] MEDS ORDERED: ISOSORBIDE MONONITRATE 30 MG TABLET PO SCH (09:00)
== END 2020-01-15 09:10 | disposition home or self-care (01) ==
LOC: N.ED 18:35 → N.EDINP 18:35 → N.5E 21:42
PROVIDERS: ADMIT Family Medicine; ATTEND Family Medicine

== ENCOUNTER 2020-02-13 13:46 | Observation (INO) ==
[2020-02-13] MEDS ORDERED: SODIUM CHLORIDE 0.9% 1,000 ML IV STA (15:11)
[2020-02-13 16:16] LABS: Basophils % 0.6 % (0.0-0.8); Eosinophils % 1.2 % (0.00-10.9); Hematocrit 27.6 VOL% (35.7-47.0); Hemoglobin 8.9 GM/DL (12.0-16.0); Immature Granulocytes % 0.3 %; Immature Granulocytes Absolute 0.01 #; Lymphocytes # 0.5 10*3/uL (1.4-4.0); Lymphocytes % 15.8 % (21.3-54.2); Mean Corpuscular HGB Conc 32.2 GM/DL (32-36); Mean Corpuscular Volume 95.2 FL (87-102); Mean Platelet Volume 10.3 FL (9.6-12.0); Monocytes % 7.6 % (1.7-12.7); Neutrophils % 74.5 % (38.7-73.9); Platelet Count 178 T/CUMM (130-400); White Blood Count 3.3 T/CUMM (4-12)
[2020-02-13 16:31] LABS: PT Patient Result 10.9 SECS (9.8-11.9); Partial Thromboplastin Time 28.2 SECS (23.9-33.8)
[2020-02-13 16:41] LABS: Alanine Aminotransferase < 9 U/L (13-56); Alkaline Phosphatase 65 U/L (45-117); Aspartate Amino Transferase 13 U/L (0-37); Blood Urea Nitrogen 14 MG/DL (7-18); Calcium 7.7 MG/DL (8.5-10.1); Estimated Glom Filtration Rate 15 ML/MIN; Glucose 116 MG/DL (74-106); Osmolality,Calculated 280.4 MOS/KG (273-304); Total Protein 5.3 G/DL (6.4-8.3)
[2020-02-13 17:59] LABS: Bilirubin,Urine Negative (Negative); Blood, Urine Small mg/dL (Negative); Glucose,Urine (UA) Negative (Negative); Ketones,Urine Negative (Negative); Nitrite,Urine Negative (Negative); Protein,Urine 100 MG/DL; Urine Appearance CLOUDY (Clear); Urine Color Yellow (Yellow); Urine Specific Gravity 1.013 (1.001-1.035); Urine Urobilinogen < 2.0 EU/DL (0.2-1.0); WBC,Urine 1885 /HPF (0-6)
[2020-02-13 19:16] LABS: Band Neutrophils 2 % (0-10); Lymphocytes 13 % (20-55); Platelet Estimate Normal; Segmented Neutrophils 80 % (50-85); Total Cells Counted 100
[2020-02-13] MEDS ORDERED: ACETAMINOPHEN 325 MG TABLET PO PRN (20:37)
[2020-02-13] MEDS ORDERED: ONDANSETRON 4 MG/2 ML VIAL IV PRN (20:37)
[2020-02-13] MEDS: DOCUSATE SODIUM 100 MG CAPSULE PO SCH (22:05)
[2020-02-14] MEDS: POTASSIUM CHLORIDE 20 MEQ TABLET PO PRN ×3 (00:56→04:21)
[2020-02-14] MEDS: POTASSIUM CHLORIDE 20 MEQ/15 ML UDCUP PO PRN (06:17)
[2020-02-14] MEDS ORDERED: traMADol 50 MG TABLET PO PRN (07:32)
[2020-02-14] MEDS ORDERED: NITROGLYCERIN SL 0.4 MG TABLET SL PRN (07:32)
[2020-02-14] MEDS ORDERED: CYANOCOBALAMIN 1000 MCG/1 ML VIAL IM SCH (08:00)
[2020-02-14] MEDS: cefTRIAXone 1,000 MG in SYRINGE 1 EACH IV SCH (08:01)
[2020-02-14] MEDS: SEVELAMER CARBONATE 800 MG TABLET PO SCH ×3 (08:01→16:59)
[2020-02-14] MEDS: METOPROLOL TARTRATE 50 MG TABLET PO SCH ×2 (08:02→21:38)
[2020-02-14] MEDS: hydrALAZINE 25 MG TABLET PO SCH ×3 (08:02→21:40)
[2020-02-14] MEDS: CLORAZEPATE 3.75 MG TABLET PO SCH ×2 (08:03→21:39)
[2020-02-14] MEDS: DOCUSATE SODIUM 100 MG CAPSULE PO SCH ×2 (09:26→21:40)
[2020-02-14] MEDS ORDERED: HEPARIN 10,000 UNIT/10 ML VIAL IV PRN (10:43)
[2020-02-14] MEDS: ISOSORBIDE MONONITRATE 30 MG TABLET PO SCH (11:44)
[2020-02-14] MEDS: allopurinoL 100 MG TABLET PO SCH (11:45)
[2020-02-14] MEDS: CLOPIDOGREL 75 MG TABLET PO SCH (11:45)
[2020-02-14] MEDS: PANTOPRAZOLE 40 MG TABLET PO SCH (11:45)
[2020-02-14] MEDS: FENOFIBRATE 48 MG TABLET PO SCH (21:40)
[2020-02-15] MEDS: CLORAZEPATE 3.75 MG TABLET PO SCH ×2 (08:40→20:59)
[2020-02-15] MEDS: PANTOPRAZOLE 40 MG TABLET PO SCH (08:41)
[2020-02-15] MEDS: CLOPIDOGREL 75 MG TABLET PO SCH (08:41)
[2020-02-15] MEDS: hydrALAZINE 25 MG TABLET PO SCH ×3 (08:41→20:59)
[2020-02-15] MEDS: SEVELAMER CARBONATE 800 MG TABLET PO SCH ×3 (08:41→16:33)
[2020-02-15] MEDS: allopurinoL 100 MG TABLET PO SCH (08:42)
[2020-02-15] MEDS: METOPROLOL TARTRATE 50 MG TABLET PO SCH ×2 (08:42→20:59)
[2020-02-15] MEDS: DOCUSATE SODIUM 100 MG CAPSULE PO SCH ×2 (08:42→20:59)
[2020-02-15] MEDS: ISOSORBIDE MONONITRATE 30 MG TABLET PO SCH (08:42)
[2020-02-15] MEDS: cefTRIAXone 1,000 MG in SYRINGE 1 EACH IV SCH ×2 (09:17→10:33)
[2020-02-15] MEDS: FENOFIBRATE 48 MG TABLET PO SCH (20:59)
[2020-02-16] MEDS: cefTRIAXone 1,000 MG in SYRINGE 1 EACH IV SCH (08:54)
[2020-02-16] MEDS: SEVELAMER CARBONATE 800 MG TABLET PO SCH ×3 (08:54→16:36)
[2020-02-16] MEDS: MULTIVITAMIN (CENTRUM) TABLET PO SCH (08:55)
[2020-02-16] MEDS: DOCUSATE SODIUM 100 MG CAPSULE PO SCH ×2 (08:55→20:44)
[2020-02-16] MEDS: CLORAZEPATE 3.75 MG TABLET PO SCH ×2 (08:55→20:44)
[2020-02-16] MEDS: CLOPIDOGREL 75 MG TABLET PO SCH (08:55)
[2020-02-16] MEDS: allopurinoL 100 MG TABLET PO SCH (08:55)
[2020-02-16] MEDS: PANTOPRAZOLE 40 MG TABLET PO SCH (08:55)
[2020-02-16] MEDS: hydrALAZINE 25 MG TABLET PO SCH ×3 (08:56→20:44)
[2020-02-16] MEDS: METOPROLOL TARTRATE 50 MG TABLET PO SCH ×3 (08:56→20:44)
[2020-02-16] MEDS: ISOSORBIDE MONONITRATE 30 MG TABLET PO SCH ×2 (08:56→16:37)
[2020-02-16] MEDS: POTASSIUM CHLORIDE 20 MEQ/15 ML UDCUP PO PRN ×3 (16:36→20:44)
[2020-02-16] MEDS: FENOFIBRATE 48 MG TABLET PO SCH (20:44)
[2020-02-17] MEDS: SEVELAMER CARBONATE 800 MG TABLET PO SCH ×3 (11:28→16:21)
[2020-02-17] MEDS: hydrALAZINE 25 MG TABLET PO SCH ×4 (11:28→21:46)
[2020-02-17] MEDS ORDERED: LEVOFLOXACIN INJ 250 MG in PREMIX 1 EACH IV SCH (11:30)
[2020-02-17] MEDS: cefTRIAXone 1,000 MG in SYRINGE 1 EACH IV SCH (11:57)
[2020-02-17] MEDS: allopurinoL 100 MG TABLET PO SCH (13:44)
[2020-02-17] MEDS: CLOPIDOGREL 75 MG TABLET PO SCH (13:44)
[2020-02-17] MEDS: PANTOPRAZOLE 40 MG TABLET PO SCH (13:45)
[2020-02-17] MEDS: METOPROLOL TARTRATE 50 MG TABLET PO SCH ×2 (13:45→21:46)
[2020-02-17] MEDS: ISOSORBIDE MONONITRATE 30 MG TABLET PO SCH (13:45)
[2020-02-17] MEDS: CLORAZEPATE 3.75 MG TABLET PO SCH ×2 (13:45→21:45)
[2020-02-17] MEDS: MULTIVITAMIN (CENTRUM) TABLET PO SCH (13:46)
[2020-02-17] MEDS: DOCUSATE SODIUM 100 MG CAPSULE PO SCH ×2 (13:46→21:46)
[2020-02-17] MEDS: FENOFIBRATE 48 MG TABLET PO SCH (21:45)
[2020-02-18 05:54] LABS: Basophils % 0.4 % (0.0-0.8); Eosinophils # 0.1 10*3/uL (0.0-0.87); Eosinophils % 2.9 % (0.00-10.9); Hematocrit 30.4 VOL% (35.7-47.0); Hemoglobin 9.8 GM/DL (12.0-16.0); Immature Granulocytes % 0.7 %; Immature Granulocytes Absolute 0.02 #; Lymphocytes # 0.9 10*3/uL (1.4-4.0); Lymphocytes % 31.4 % (21.3-54.2); Mean Corpuscular HGB Conc 32.2 GM/DL (32-36); Mean Corpuscular Volume 95.9 FL (87-102); Mean Platelet Volume 9.8 FL (9.6-12.0); Monocytes % 10.4 % (1.7-12.7); Neutrophils % 54.2 % (38.7-73.9); Platelet Count 179 T/CUMM (130-400); Red Blood Count 3.17 MC/CUMM (3.8-5.5); Red Cell Distribution Width 14.3 % (9.3-17.3); White Blood Count 2.8 T/CUMM (4-12)
[2020-02-18 06:15] LABS: Calcium 7.7 MG/DL (8.5-10.1); Osmolality,Calculated 274.5 MOS/KG (273-304)
[2020-02-18] MEDS: CLORAZEPATE 3.75 MG TABLET PO SCH ×2 (09:04→20:55)
[2020-02-18] MEDS: MULTIVITAMIN (CENTRUM) TABLET PO SCH (09:04)
[2020-02-18] MEDS: DOCUSATE SODIUM 100 MG CAPSULE PO SCH ×2 (09:04→20:55)
[2020-02-18] MEDS: SEVELAMER CARBONATE 800 MG TABLET PO SCH ×3 (09:04→17:12)
[2020-02-18] MEDS: METOPROLOL TARTRATE 50 MG TABLET PO SCH ×2 (09:04→20:55)
[2020-02-18] MEDS: hydrALAZINE 25 MG TABLET PO SCH ×3 (09:04→20:55)
[2020-02-18] MEDS: PANTOPRAZOLE 40 MG TABLET PO SCH (09:04)
[2020-02-18] MEDS: ISOSORBIDE MONONITRATE 30 MG TABLET PO SCH (09:05)
[2020-02-18] MEDS: CLOPIDOGREL 75 MG TABLET PO SCH (09:05)
[2020-02-18] MEDS: allopurinoL 100 MG TABLET PO SCH (09:05)
[2020-02-18] MEDS: FENOFIBRATE 48 MG TABLET PO SCH (20:55)
[2020-02-19] MEDS ORDERED: cefTRIAXone 1,000 MG in SYRINGE 1 EACH IV ONE (07:43)
[2020-02-19] MEDS: SEVELAMER CARBONATE 800 MG TABLET PO SCH ×2 (08:34→13:23)
[2020-02-19] MEDS: CLORAZEPATE 3.75 MG TABLET PO SCH (09:24)
[2020-02-19] MEDS: METOPROLOL TARTRATE 50 MG TABLET PO SCH (09:24)
[2020-02-19] MEDS: hydrALAZINE 25 MG TABLET PO SCH (09:24)
[2020-02-19] MEDS: DOCUSATE SODIUM 100 MG CAPSULE PO SCH (09:24)
[2020-02-19 10:10] VITALS: BP 148/58
[2020-02-19] MEDS: CLOPIDOGREL 75 MG TABLET PO SCH (13:22)
[2020-02-19] MEDS: PANTOPRAZOLE 40 MG TABLET PO SCH (13:22)
[2020-02-19] MEDS: ISOSORBIDE MONONITRATE 30 MG TABLET PO SCH (13:22)
[2020-02-19] MEDS: MULTIVITAMIN (CENTRUM) TABLET PO SCH (13:22)
[2020-02-19] MEDS: allopurinoL 100 MG TABLET PO SCH (13:22)
== END 2020-02-19 13:44 | disposition home or self-care (01) ==
LOC: N.ED 13:46 → N.EDINP 13:46 → N.TELEN 20:38
PROVIDERS: ADMIT Family Medicine; ATTEND Family Medicine

== ENCOUNTER 2020-02-25 11:28 | Observation (INO) ==
[2020-02-25] MEDS ORDERED: SODIUM CHLORIDE 0.9% 250 ML IV STA (11:51)
[2020-02-25 12:36] LABS: Basophils % 0.7 % (0.0-0.8); Eosinophils # 0.1 10*3/uL (0.0-0.87); Eosinophils % 1.8 % (0.00-10.9); Hematocrit 27.5 VOL% (35.7-47.0); Hemoglobin 8.7 GM/DL (12.0-16.0); Immature Granulocytes % 0.4 %; Immature Granulocytes Absolute 0.01 #; Lymphocytes # 0.7 10*3/uL (1.4-4.0); Mean Corpuscular HGB Conc 31.6 GM/DL (32-36); Mean Corpuscular Volume 96.2 FL (87-102); Mean Platelet Volume 9.9 FL (9.6-12.0); Monocytes % 10.2 % (1.7-12.7); Neutrophils % 61.9 % (38.7-73.9); Platelet Count 164 T/CUMM (130-400); Red Blood Count 2.86 MC/CUMM (3.8-5.5); Red Cell Distribution Width 14.6 % (9.3-17.3); White Blood Count 2.8 T/CUMM (4-12)
[2020-02-25 13:32] LABS: Calcium 7.7 MG/DL (8.5-10.1); Osmolality,Calculated 279.3 MOS/KG (273-304); Potassium 3.2 MMOL/L (3.5-5.1)
[2020-02-25] MEDS ORDERED: ACETAMINOPHEN 325 MG TABLET PO PRN (15:11)
[2020-02-25] MEDS ORDERED: ONDANSETRON 4 MG/2 ML VIAL IV PRN (15:11)
[2020-02-25] MEDS ORDERED: NITROGLYCERIN SL 0.4 MG TABLET SL PRN (15:15)
[2020-02-25 15:46] LABS: Bacteria,Urine Occasional /HPF (Few); Bilirubin,Urine Negative (Negative); Blood, Urine Negative (Negative); Glucose,Urine (UA) Negative (Negative); Ketones,Urine 5 mg/dL (Negative); Nitrite,Urine Negative (Negative); Protein,Urine 100 MG/DL; RBC,Urine 4 /HPF (0-4); Squamous Epithelial Cell,Urine Occasional /HPF (0-10); Urine Appearance CLOUDY (Clear); Urine Color Amber (Yellow); Urine Urobilinogen < 2.0 EU/DL (0.2-1.0); WBC,Urine 172 /HPF (0-6)
[2020-02-25] MEDS: TOLTERODINE 2 MG TABLET PO SCH (21:13)
[2020-02-25] MEDS: cephALEXin 250 MG CAPSULE PO SCH (21:13)
[2020-02-25] MEDS: CLORAZEPATE 3.75 MG TABLET PO SCH (21:13)
[2020-02-26 06:52] LABS: Calcium 7.6 MG/DL (8.5-10.1); Osmolality,Calculated 285.7 MOS/KG (273-304)
[2020-02-26] MEDS ORDERED: cefTRIAXone 1,000 MG in SYRINGE 1 EACH IV SCH (07:30)
[2020-02-26] MEDS: allopurinoL 100 MG TABLET PO SCH (09:27)
[2020-02-26] MEDS: cephALEXin 250 MG CAPSULE PO SCH ×3 (09:27→20:43)
[2020-02-26] MEDS: CLOPIDOGREL 75 MG TABLET PO SCH (09:27)
[2020-02-26] MEDS: TOLTERODINE 2 MG TABLET PO SCH ×2 (09:27→20:43)
[2020-02-26] MEDS: CLORAZEPATE 3.75 MG TABLET PO SCH ×2 (09:28→20:43)
[2020-02-26] MEDS: ISOSORBIDE MONONITRATE 30 MG TABLET PO SCH (09:30)
[2020-02-26] MEDS: cefTRIAXone 1,000 MG VIAL IM SCH (12:35)
[2020-02-26] MEDS ORDERED: HEPARIN 10,000 UNIT/10 ML VIAL IV SCH (14:30)
[2020-02-26 17:40] LABS: Hepatitis B Core IgM Quant 0.05 Index; Hepatitis B Surface Ag Quant < 0.10 Index; Hepatitis B Surface Ag Result Negative (Negative); Hepatitis C Virus Ab Quant < 0.02 Index; Hepatitis C Virus Ab Result Negative (Negative)
[2020-02-27 06:07] LABS: Calcium 7.6 MG/DL (8.5-10.1); Osmolality,Calculated 277.3 MOS/KG (273-304); Potassium 3.2 MMOL/L (3.5-5.1)
[2020-02-27] MEDS ORDERED: POTASSIUM CHLORIDE 20 MEQ TABLET PO ONE (07:27)
[2020-02-27] MEDS: cephALEXin 250 MG CAPSULE PO SCH ×3 (09:02→21:11)
[2020-02-27] MEDS: TOLTERODINE 2 MG TABLET PO SCH ×2 (09:02→21:11)
[2020-02-27] MEDS: CLORAZEPATE 3.75 MG TABLET PO SCH ×2 (09:03→21:11)
[2020-02-27] MEDS: CLOPIDOGREL 75 MG TABLET PO SCH (09:03)
[2020-02-27] MEDS: allopurinoL 100 MG TABLET PO SCH (09:03)
[2020-02-27] MEDS: ISOSORBIDE MONONITRATE 30 MG TABLET PO SCH (09:04)
[2020-02-27] MEDS: cefTRIAXone 1,000 MG VIAL IM SCH (12:40)
[2020-02-27] MEDS ORDERED: traMADol 50 MG TABLET PO PRN (12:46)
[2020-02-28] MEDS: allopurinoL 100 MG TABLET PO SCH (09:36)
[2020-02-28] MEDS: CLOPIDOGREL 75 MG TABLET PO SCH (09:36)
[2020-02-28] MEDS: ISOSORBIDE MONONITRATE 30 MG TABLET PO SCH (09:37)
[2020-02-28] MEDS: cephALEXin 250 MG CAPSULE PO SCH ×2 (09:37→14:40)
[2020-02-28] MEDS: TOLTERODINE 2 MG TABLET PO SCH (09:37)
[2020-02-28] MEDS: CLORAZEPATE 3.75 MG TABLET PO SCH (09:37)
[2020-02-28 12:33] VITALS: BP 137/66
[2020-02-28] MEDS: cefTRIAXone 1,000 MG VIAL IM SCH (12:59)
== END 2020-02-28 18:39 | disposition home or self-care (01) ==
LOC: N.ED 11:28 → N.EDINP 11:28 → N.TELES 20:30
PROVIDERS: ADMIT Family Medicine; ATTEND Family Medicine

== ENCOUNTER 2020-11-04 10:13 | Inpatient (IN) ==
[2020-11-04 13:26] LABS: Alanine Aminotransferase < 6 U/L (13-56); Albumin 2.9 G/DL (3.4-5.0); Alkaline Phosphatase 59 U/L (45-117); Aspartate Amino Transferase 15 U/L (0-37); Blood Urea Nitrogen 30 MG/DL (7-18); Carbon Dioxide 31 MMOL/L (21-32); Glucose 77 MG/DL (74-106); Osmolality,Calculated 281.5 MOS/KG (273-304); Potassium 3.8 MMOL/L (3.5-5.1); Sodium 139 MMOL/L (136-145); Total Protein 5.8 G/DL (6.4-8.2)
[2020-11-04 13:33] LABS: Estimated Glom Filtration Rate 0 ML/MIN
[2020-11-04 14:05] LABS: Bacteria,Urine Many /HPF (Few); Bilirubin,Urine Negative (Negative); Blood, Urine Small mg/dL (Negative); Glucose,Urine (UA) Negative (Negative); Ketones,Urine Negative (Negative); Nitrite,Urine Negative (Negative); Protein,Urine 100 MG/DL; Squamous Epithelial Cell,Urine Occasional /HPF (0-10); Urine Appearance CLOUDY (Clear); Urine Color Amber (Yellow); Urine Specific Gravity 1.013 (1.001-1.035); Urine Urobilinogen < 2.0 EU/DL (0.2-1.0)
[2020-11-04] MEDS ORDERED: AMIKACIN IV ONE (15:06)
[2020-11-04] MEDS ORDERED: SODIUM CHLORIDE 0.9% IV ONE (15:06)
[2020-11-04] MEDS ORDERED: ONDANSETRON 4 MG/2 ML VIAL IV PRN (15:08)
[2020-11-04] MEDS ORDERED: ACETAMINOPHEN 325 MG TABLET PO PRN (15:08)
[2020-11-04] MEDS ORDERED: NITROGLYCERIN SL 0.4 MG TABLET SL PRN (15:10)
[2020-11-04] MEDS ORDERED: CLORAZEPATE 3.75 MG TABLET PO PRN (15:10)
[2020-11-04] MEDS ORDERED: CYANOCOBALAMIN 1000 MCG/1 ML VIAL IM SCH (15:30)
[2020-11-04] MEDS ORDERED: ALBUTEROL 2.5 MG/3 ML NEB RESP TX PRN (16:34)
[2020-11-04] MEDS: ENOXAPARIN 30 MG/0.3 ML SYRINGE SUBCUT SCH (16:40)
[2020-11-04 17:37] LABS: Basophils % 0.3 % (0.0-0.8); Eosinophils % 0.3 % (0.00-10.9); Hematocrit 36.2 VOL% (35.7-47.0); Hemoglobin 10.9 GM/DL (12.0-16.0); Immature Granulocytes % 0.3 %; Immature Granulocytes Absolute 0.01 #; Lymphocytes # 0.6 10*3/uL (1.4-4.0); Lymphocytes % 20.1 % (21.3-54.2); Mean Corpuscular HGB Conc 30.1 GM/DL (32-36); Mean Corpuscular Volume 105.8 FL (87-102); Mean Platelet Volume 10.4 FL (9.6-12.0); Monocytes % 10.2 % (1.7-12.7); Neutrophils % 68.8 % (38.7-73.9); Platelet Count 85 T/CUMM (130-400); Red Blood Count 3.42 MC/CUMM (3.8-5.5); Red Cell Distribution Width 13.9 % (9.3-17.3); White Blood Count 2.9 T/CUMM (4-12)
[2020-11-04] MEDS: ISOSORBIDE MONONITRATE 20 MG TABLET PO SCH (20:57)
[2020-11-04] MEDS: TOLTERODINE 2 MG TABLET PO SCH (20:57)
[2020-11-05] MEDS: cloNIDine 0.1 MG TABLET PO PRN (04:14)
[2020-11-05 05:55] LABS: Alanine Aminotransferase < 6 U/L (13-56); Albumin 2.7 G/DL (3.4-5.0); Alkaline Phosphatase 53 U/L (45-117); Aspartate Amino Transferase 11 U/L (0-37); Blood Urea Nitrogen 31 MG/DL (7-18); Calcium 8.3 MG/DL (8.5-10.1); Carbon Dioxide 28 MMOL/L (21-32); Estimated Glom Filtration Rate 12 ML/MIN; Glucose 62 MG/DL (74-106); Osmolality,Calculated 283.4 MOS/KG (273-304); Potassium 3.9 MMOL/L (3.5-5.1); Sodium 140 MMOL/L (136-145); Total Protein 5.8 G/DL (6.4-8.2)
[2020-11-05] MEDS ORDERED: ERTAPENEM 500 MG in SODIUM CHLORIDE 0.9% 100 ML IV PRN (08:33)
[2020-11-05] MEDS: CLOPIDOGREL 75 MG TABLET PO SCH (08:39)
[2020-11-05] MEDS: ISOSORBIDE MONONITRATE 20 MG TABLET PO SCH ×2 (08:40→20:58)
[2020-11-05] MEDS: TOLTERODINE 2 MG TABLET PO SCH ×2 (08:40→20:58)
[2020-11-05] MEDS: PANTOPRAZOLE 40 MG TABLET PO SCH (08:40)
[2020-11-05] MEDS: FLUoxetine 20 MG CAPSULE PO SCH (08:41)
[2020-11-05] MEDS: amLODIPine 5 MG TABLET PO SCH (08:41)
[2020-11-05] MEDS ORDERED: HEPARIN 10,000 UNIT/10 ML VIAL IV SCH (10:45)
[2020-11-05 11:24] LABS: Alanine Aminotransferase < 6 U/L (13-56); Albumin 2.8 G/DL (3.4-5.0); Alkaline Phosphatase 55 U/L (45-117); Aspartate Amino Transferase 12 U/L (0-37); Bilirubin,Indirect 0.3 MG/DL (0.0-1.0); Total Protein 5.6 G/DL (6.4-8.2)
[2020-11-05] MEDS: ENOXAPARIN 30 MG/0.3 ML SYRINGE SUBCUT SCH (15:21)
[2020-11-05] MEDS ORDERED: ERTAPENEM 500 MG in SODIUM CHLORIDE 0.9% 100 ML IV ONE (17:00)
[2020-11-06] MEDS ORDERED: METOPROLOL TARTRATE 5 MG/5 ML VIAL IV ONE (05:11)
[2020-11-06 08:06] LABS: Calcium 8.5 MG/DL (8.5-10.1); Potassium 3.8 MMOL/L (3.5-5.1)
[2020-11-06] MEDS: PANTOPRAZOLE 40 MG TABLET PO SCH (09:00)
[2020-11-06] MEDS: amLODIPine 5 MG TABLET PO SCH (09:00)
[2020-11-06] MEDS: CLOPIDOGREL 75 MG TABLET PO SCH (09:00)
[2020-11-06] MEDS: FLUoxetine 20 MG CAPSULE PO SCH (09:01)
[2020-11-06] MEDS: ISOSORBIDE MONONITRATE 20 MG TABLET PO SCH ×2 (09:01→22:58)
[2020-11-06] MEDS: TOLTERODINE 2 MG TABLET PO SCH ×2 (09:01→22:57)
[2020-11-06 10:27] LABS: Hepatitis B Core IgM Quant 0.08 Index; Hepatitis B Surface Ag Quant < 0.10 Index; Hepatitis B Surface Ag Result Non-Reactive (NonReactive); Hepatitis C Virus Ab Quant 0.08 Index; Hepatitis C Virus Ab Result Non-Reactive (NonReactive)
[2020-11-06] MEDS: MULTIVITAMIN (BEROCCA) TABLET PO SCH (14:13)
[2020-11-06] MEDS: CYPROHEPTADINE 4 MG TABLET PO SCH ×2 (14:13→22:58)
[2020-11-06] MEDS: ENOXAPARIN 30 MG/0.3 ML SYRINGE SUBCUT SCH (16:12)
[2020-11-06] MEDS ORDERED: DEXTROSE 50% 25 GM/50 ML VIAL IV ONE (16:25)
[2020-11-06] MEDS: SODIUM CHLORIDE 0.9% 1,000 ML IV SCH ×2 (16:44→23:12)
[2020-11-06] MEDS: ERTAPENEM 500 MG in SODIUM CHLORIDE 0.9% 100 ML IV SCH (17:56)
[2020-11-06] MEDS: DILTIAZEM CD 120 MG CAPSULE PO SCH (22:57)
[2020-11-07] MEDS: SODIUM CHLORIDE 0.9% 1,000 ML IV SCH ×2 (02:36→21:04)
[2020-11-07] MEDS: MULTIVITAMIN (BEROCCA) TABLET PO SCH (12:34)
[2020-11-07] MEDS: TOLTERODINE 2 MG TABLET PO SCH ×2 (12:35→20:51)
[2020-11-07] MEDS: ISOSORBIDE MONONITRATE 20 MG TABLET PO SCH ×2 (12:35→20:51)
[2020-11-07] MEDS: CLOPIDOGREL 75 MG TABLET PO SCH (12:35)
[2020-11-07] MEDS: PANTOPRAZOLE 40 MG TABLET PO SCH (12:35)
[2020-11-07] MEDS: CYPROHEPTADINE 4 MG TABLET PO SCH ×2 (12:35→20:51)
[2020-11-07] MEDS: FLUoxetine 20 MG CAPSULE PO SCH (12:36)
[2020-11-07] MEDS: DEXTROSE 5% NACL 0.45% 1,000 ML IV SCH ×2 (12:36→23:50)
[2020-11-07] MEDS: ENOXAPARIN 30 MG/0.3 ML SYRINGE SUBCUT SCH (15:28)
[2020-11-07] MEDS: DILTIAZEM CD 120 MG CAPSULE PO SCH (20:51)
[2020-11-08] MEDS: DEXTROSE 5% NACL 0.45% 1,000 ML IV SCH ×3 (04:50→15:04)
[2020-11-08] MEDS ORDERED: DILTIAZEM 50 MG/10 ML VIAL IV ONE ×2 (09:25→09:26)
[2020-11-08 10:08] LABS: Basophils % 0.3 % (0.0-0.8); Hematocrit 37.2 VOL% (35.7-47.0); Hemoglobin 11.1 GM/DL (12.0-16.0); Immature Granulocytes Absolute 0.03 #; Lymphocytes # 0.4 10*3/uL (1.4-4.0); Lymphocytes % 11.2 % (21.3-54.2); Mean Corpuscular HGB Conc 29.8 GM/DL (32-36); Mean Corpuscular Volume 106.9 FL (87-102); Mean Platelet Volume 11.2 FL (9.6-12.0); Monocytes % 11.8 % (1.7-12.7); Neutrophils % 75.7 % (38.7-73.9); Red Blood Count 3.48 MC/CUMM (3.8-5.5); Red Cell Distribution Width 13.7 % (9.3-17.3); White Blood Count 3.1 T/CUMM (4-12)
[2020-11-08 10:09] LABS: Platelet Count 57 T/CUMM (130-400)
[2020-11-08 10:32] LABS: Potassium 3.5 MMOL/L (3.5-5.1)
[2020-11-08] MEDS ORDERED: DIGOXIN 0.5 MG/2 ML AMP IV ONE (10:53)
[2020-11-08] MEDS: CYPROHEPTADINE 4 MG TABLET PO SCH ×2 (11:44→22:19)
[2020-11-08] MEDS: ISOSORBIDE MONONITRATE 20 MG TABLET PO SCH ×2 (11:44→22:19)
[2020-11-08] MEDS: TOLTERODINE 2 MG TABLET PO SCH ×2 (11:44→22:21)
[2020-11-08] MEDS: MULTIVITAMIN (BEROCCA) TABLET PO SCH (11:44)
[2020-11-08] MEDS: PANTOPRAZOLE 40 MG TABLET PO SCH (11:44)
[2020-11-08] MEDS: FLUoxetine 20 MG CAPSULE PO SCH (11:44)
[2020-11-08] MEDS: DIGOXIN 0.5 MG/2 ML AMP IV SCH (12:44)
[2020-11-08] MEDS: cloNIDine 0.1 MG TABLET PO PRN (12:51)
[2020-11-08] MEDS ORDERED: cloNIDine 0.1 MG TABLET PO PRN (14:23)
[2020-11-08] MEDS: hydrALAZINE 20 MG/1 ML VIAL IV PRN (14:50)
[2020-11-08] MEDS: ERTAPENEM 500 MG in SODIUM CHLORIDE 0.9% 100 ML IV SCH (16:50)
[2020-11-08] MEDS: ENOXAPARIN 30 MG/0.3 ML SYRINGE SUBCUT SCH (16:50)
[2020-11-08] MEDS: DILTIAZEM CD 120 MG CAPSULE PO SCH (22:20)
[2020-11-09 08:10] LABS: Hematocrit 31.6 VOL% (35.7-47.0); Hemoglobin 9.5 GM/DL (12.0-16.0); Immature Granulocytes % 0.9 %; Immature Granulocytes Absolute 0.02 #; Lymphocytes # 0.2 10*3/uL (1.4-4.0); Lymphocytes % 9.9 % (21.3-54.2); Mean Corpuscular HGB Conc 30.1 GM/DL (32-36); Mean Corpuscular Volume 105.7 FL (87-102); Mean Platelet Volume 10.7 FL (9.6-12.0); Monocytes % 9.5 % (1.7-12.7); Neutrophils % 79.7 % (38.7-73.9); Platelet Count 47 T/CUMM (130-400); Red Blood Count 2.99 MC/CUMM (3.8-5.5); Red Cell Distribution Width 13.3 % (9.3-17.3); White Blood Count 2.2 T/CUMM (4-12)
[2020-11-09] MEDS: CYPROHEPTADINE 4 MG TABLET PO SCH ×2 (08:13→21:56)
[2020-11-09] MEDS: TOLTERODINE 2 MG TABLET PO SCH ×2 (08:13→21:57)
[2020-11-09] MEDS: MULTIVITAMIN (BEROCCA) TABLET PO SCH (08:13)
[2020-11-09] MEDS: DIGOXIN 0.5 MG/2 ML AMP IV SCH (08:13)
[2020-11-09] MEDS: PANTOPRAZOLE 40 MG TABLET PO SCH (08:13)
[2020-11-09] MEDS: ISOSORBIDE MONONITRATE 20 MG TABLET PO SCH ×2 (08:13→21:59)
[2020-11-09] MEDS: FLUoxetine 20 MG CAPSULE PO SCH (08:13)
[2020-11-09 08:27] LABS: Calcium 7.8 MG/DL (8.5-10.1); Osmolality,Calculated 272.8 MOS/KG (273-304); Potassium 3.1 MMOL/L (3.5-5.1)
[2020-11-09] MEDS ORDERED: METOPROLOL TARTRATE 5 MG/5 ML VIAL IV PRN (09:33)
[2020-11-09] MEDS ORDERED: POTASSIUM BICARB EFFERVESCENT 20 MEQ TAB.EFF PO ONE (09:53)
[2020-11-09] MEDS ORDERED: MAGNESIUM SULF RIDER 2 GM/50 ML PREMIX IV PRN (09:55)
[2020-11-09] MEDS ORDERED: ATROPINE 1 MG/10 ML SYRINGE ONE ×2 (11:14)
[2020-11-09] MEDS ORDERED: SODIUM CHLORIDE 0.9% 500 ML IV ONE (11:15)
[2020-11-09] MEDS ORDERED: ATROPINE 1 MG/10 ML SYRINGE IV ONE (11:15)
[2020-11-09 11:32] LABS: Allen Test Positive; Pt O2 Delivery Device Room Air
[2020-11-09 11:33] LABS: ABG Base Excess -6.4 MMOL/L (-2.5-2.5); ABG HCO3 19.2 MMOL/L (20-26); ABG Oxygen Saturation 97.1 % (95-100); ABG TCO2 23.6 MMOL/L (23-27)
[2020-11-09 11:39] LABS: ABG PCO2 77.4 MM HG (35-48); ABG PH 7.111 (7.35-7.45)
[2020-11-09 11:51] LABS: Calcium 7.6 MG/DL (8.5-10.1)
[2020-11-09] MEDS ORDERED: ETOMIDATE 20 MG/10 ML VIAL IV ONE (11:59)
[2020-11-09] MEDS ORDERED: SUCCINYLCHOLINE 200 MG/10 ML VIAL IV ONE (11:59)
[2020-11-09] MEDS ORDERED: SUCCINYLCHOLINE 200 MG/10 ML VIAL ONE (12:07)
[2020-11-09] MEDS: DEXTROSE 5% NACL 0.45% 1,000 ML IV SCH (16:10)
[2020-11-09] MEDS: DILTIAZEM CD 120 MG CAPSULE PO SCH (21:56)
[2020-11-10] MEDS: DEXTROSE 5% NACL 0.45% 1,000 ML IV SCH ×2 (01:19→17:36)
[2020-11-10] MEDS ORDERED: DEXTROSE 50% 25 GM/50 ML VIAL IV PRN (02:47)
[2020-11-10 04:32] LABS: Hematocrit 29.1 VOL% (35.7-47.0); Hemoglobin 9.1 GM/DL (12.0-16.0); Immature Granulocytes % 0.4 %; Immature Granulocytes Absolute 0.01 #; Lymphocytes # 0.3 10*3/uL (1.4-4.0); Lymphocytes % 12.4 % (21.3-54.2); Mean Corpuscular HGB Conc 31.3 GM/DL (32-36); Mean Platelet Volume 11.3 FL (9.6-12.0); Monocytes % 8.7 % (1.7-12.7); Neutrophils % 78.5 % (38.7-73.9); Red Blood Count 2.94 MC/CUMM (3.8-5.5); Red Cell Distribution Width 12.8 % (9.3-17.3); White Blood Count 2.8 T/CUMM (4-12)
[2020-11-10 04:39] LABS: Platelet Count 40 T/CUMM (130-400)
[2020-11-10 04:41] LABS: Calcium 7.6 MG/DL (8.5-10.1); Osmolality,Calculated 273.1 MOS/KG (273-304); Potassium 2.7 MMOL/L (3.5-5.1)
[2020-11-10 04:55] LABS: Hypochromasia 1+; Microcytosis 1+; Platelet Estimate Decreased
[2020-11-10] MEDS ORDERED: POTASSIUM CHLORIDE 20 MEQ TABLET PO ONE (08:03)
[2020-11-10] MEDS: TOLTERODINE 2 MG TABLET PO SCH ×2 (08:09→21:43)
[2020-11-10] MEDS: DIGOXIN 0.5 MG/2 ML AMP IV SCH (08:09)
[2020-11-10] MEDS: ISOSORBIDE MONONITRATE 20 MG TABLET PO SCH ×2 (08:10→21:43)
[2020-11-10] MEDS: PANTOPRAZOLE 40 MG TABLET PO SCH (08:10)
[2020-11-10] MEDS: MULTIVITAMIN (BEROCCA) TABLET PO SCH (08:10)
[2020-11-10] MEDS: FLUoxetine 20 MG CAPSULE PO SCH (08:10)
[2020-11-10] MEDS: CYPROHEPTADINE 4 MG TABLET PO SCH ×2 (08:12→21:43)
[2020-11-10 08:59] LABS: ABG Base Excess 1.6 MMOL/L (-2.5-2.5); ABG HCO3 25.9 MMOL/L (20-26); ABG PCO2 30.8 MM HG (35-48); ABG PH 7.504 (7.35-7.45); ABG TCO2 22.1 MMOL/L (23-27)
[2020-11-10] MEDS: DILTIAZEM CD 120 MG CAPSULE PO SCH (21:43)
[2020-11-11] MEDS: DEXTROSE 10% 1,000 ML IV SCH (04:01)
[2020-11-11 04:10] LABS: ABG Base Excess 2.3 MMOL/L (-2.5-2.5); ABG HCO3 24.2 MMOL/L (20-26); ABG Oxygen Saturation 99.1 % (95-100); ABG PCO2 28.3 MM HG (35-48); ABG PO2 387.8 MM HG (80-95); ABG TCO2 25.1 MMOL/L (23-27)
[2020-11-11 05:05] LABS: Eosinophils % 0.7 % (0.00-10.9); Hematocrit 28.3 VOL% (35.7-47.0); Hemoglobin 9.5 GM/DL (12.0-16.0); Immature Granulocytes % 0.4 %; Immature Granulocytes Absolute 0.01 #; Lymphocytes # 0.5 10*3/uL (1.4-4.0); Lymphocytes % 16.1 % (21.3-54.2); Mean Corpuscular HGB Conc 33.6 GM/DL (32-36); Mean Corpuscular Volume 96.6 FL (87-102); Mean Platelet Volume 11.4 FL (9.6-12.0); Monocytes % 8.9 % (1.7-12.7); Neutrophils % 73.9 % (38.7-73.9); Red Blood Count 2.93 MC/CUMM (3.8-5.5); Red Cell Distribution Width 13.1 % (9.3-17.3); White Blood Count 2.8 T/CUMM (4-12)
[2020-11-11 05:28] LABS: Calcium 7.8 MG/DL (8.5-10.1); Osmolality,Calculated 265.7 MOS/KG (273-304); Potassium 3.2 MMOL/L (3.5-5.1)
[2020-11-11 05:33] LABS: Platelet Count 43 T/CUMM (130-400)
[2020-11-11 05:51] LABS: Hypochromasia 1+; Microcytosis 1+; Platelet Estimate Decreased
[2020-11-11] MEDS ORDERED: SODIUM CHLORIDE 0.9% 1,000 ML IV PRN (08:16)
[2020-11-11] MEDS ORDERED: POTASSIUM BICARB EFFERVESCENT 20 MEQ TAB.EFF PO ONE ×2 (09:00→16:57)
[2020-11-11 10:11] LABS: PT Patient Result 11.1 SECS (10.5-12.0)
[2020-11-11] MEDS: MULTIVITAMIN (BEROCCA) TABLET PO SCH (10:33)
[2020-11-11] MEDS: ISOSORBIDE MONONITRATE 20 MG TABLET PO SCH ×2 (11:15→21:00)
[2020-11-11] MEDS: DIGOXIN 0.5 MG/2 ML AMP IV SCH (11:15)
[2020-11-11] MEDS: TOLTERODINE 2 MG TABLET PO SCH ×2 (11:15→20:59)
[2020-11-11] MEDS: FLUoxetine 20 MG CAPSULE PO SCH (11:17)
[2020-11-11] MEDS: CYPROHEPTADINE 4 MG TABLET PO SCH ×2 (11:17→21:00)
[2020-11-11] MEDS: FAMOTIDINE 20 MG TABLET PO SCH (11:17)
[2020-11-11] MEDS ORDERED: SODIUM CHLORIDE 0.9% IV ONE (17:14)
[2020-11-11] MEDS ORDERED: DIGOXIN IMMUNE FAB IV ONE (17:14)
[2020-11-11] MEDS: ERTAPENEM 500 MG in SODIUM CHLORIDE 0.9% 100 ML IV SCH (17:49)
[2020-11-11] MEDS: SODIUM CHLORIDE 0.9% 1,000 ML IV SCH (17:50)
[2020-11-11] MEDS: DILTIAZEM CD 120 MG CAPSULE PO SCH (21:00)
[2020-11-12 03:17] LABS: ABG Base Excess 6.6 MMOL/L (-2.5-2.5); ABG HCO3 30.4 MMOL/L (20-26); ABG Oxygen Saturation 99.6 % (95-100); ABG PCO2 30.6 MM HG (35-48); ABG PH 7.579 (7.35-7.45); ABG TCO2 26.7 MMOL/L (23-27)
[2020-11-12 04:11] LABS: Eosinophils % 0.4 % (0.00-10.9); Hematocrit 22.7 VOL% (35.7-47.0); Hemoglobin 7.5 GM/DL (12.0-16.0); Immature Granulocytes % 1.1 %; Immature Granulocytes Absolute 0.03 #; Lymphocytes # 0.5 10*3/uL (1.4-4.0); Lymphocytes % 16.8 % (21.3-54.2); Mean Corpuscular Volume 96.2 FL (87-102); Mean Platelet Volume 10.5 FL (9.6-12.0); Monocytes % 11.6 % (1.7-12.7); Neutrophils % 70.1 % (38.7-73.9); Platelet Count 63 T/CUMM (130-400); Red Blood Count 2.36 MC/CUMM (3.8-5.5); Red Cell Distribution Width 13.6 % (9.3-17.3); White Blood Count 2.7 T/CUMM (4-12)
[2020-11-12 04:30] LABS: Calcium 7.4 MG/DL (8.5-10.1); Potassium 3.1 MMOL/L (3.5-5.1)
[2020-11-12 05:28] LABS: Hypochromasia 1+; Lymphocytes 19 % (20-55); Nucleated Red Blood Cells 1 (0-5); Platelet Estimate Decreased; Segmented Neutrophils 74 % (50-85); Total Cells Counted 100
[2020-11-12] MEDS ORDERED: SODIUM CHLORIDE 0.9% 1,000 ML IV PRN (09:01)
[2020-11-12] MEDS ORDERED: POTASSIUM BICARB EFFERVESCENT 20 MEQ TAB.EFF PO ONE (09:04)
[2020-11-12] MEDS: DEXTROSE 10% 1,000 ML IV SCH ×2 (09:20→13:53)
[2020-11-12] MEDS: MULTIVITAMIN (BEROCCA) TABLET PO SCH (09:21)
[2020-11-12] MEDS: CYPROHEPTADINE 4 MG TABLET PO SCH ×2 (09:21→20:44)
[2020-11-12] MEDS: SODIUM CHLORIDE 0.9% 1,000 ML IV SCH (09:21)
[2020-11-12] MEDS: TOLTERODINE 2 MG TABLET PO SCH ×2 (09:21→20:44)
[2020-11-12] MEDS: FAMOTIDINE 20 MG TABLET PO SCH (09:21)
[2020-11-12] MEDS: FLUoxetine 20 MG CAPSULE PO SCH (09:21)
[2020-11-12] MEDS: ISOSORBIDE MONONITRATE 20 MG TABLET PO SCH ×2 (09:21→20:44)
[2020-11-12 10:32] LABS: Eosinophils % 0.3 % (0.00-10.9); Hematocrit 22.7 VOL% (35.7-47.0); Hemoglobin 7.4 GM/DL (12.0-16.0); Immature Granulocytes % 1.6 %; Immature Granulocytes Absolute 0.05 #; Lymphocytes # 0.5 10*3/uL (1.4-4.0); Lymphocytes % 16.4 % (21.3-54.2); Mean Corpuscular HGB Conc 32.6 GM/DL (32-36); Mean Corpuscular Volume 96.6 FL (87-102); Mean Platelet Volume 11.1 FL (9.6-12.0); Monocytes % 12.5 % (1.7-12.7); Neutrophils % 69.2 % (38.7-73.9); Platelet Count 69 T/CUMM (130-400); Red Blood Count 2.35 MC/CUMM (3.8-5.5); Red Cell Distribution Width 13.8 % (9.3-17.3)
[2020-11-12 10:50] LABS: Lymphocytes 13 % (20-55); Nucleated Red Blood Cells 1 (0-5); Segmented Neutrophils 72 % (50-85); Total Cells Counted 100
[2020-11-12 10:51] LABS: Hypochromasia 1+; Microcytosis 1+; Platelet Estimate Decreased
[2020-11-12] MEDS: hydrALAZINE 20 MG/1 ML VIAL IV PRN (17:27)
[2020-11-13 04:26] LABS: Eosinophils % 0.6 % (0.00-10.9); Hematocrit 23.9 VOL% (35.7-47.0); Hemoglobin 7.9 GM/DL (12.0-16.0); Immature Granulocytes % 0.9 %; Immature Granulocytes Absolute 0.03 #; Lymphocytes # 0.6 10*3/uL (1.4-4.0); Lymphocytes % 15.7 % (21.3-54.2); Mean Corpuscular HGB Conc 33.1 GM/DL (32-36); Mean Corpuscular Volume 97.6 FL (87-102); Mean Platelet Volume 11.2 FL (9.6-12.0); Monocytes % 10.8 % (1.7-12.7); Red Blood Count 2.45 MC/CUMM (3.8-5.5); Red Cell Distribution Width 13.9 % (9.3-17.3); White Blood Count 3.5 T/CUMM (4-12)
[2020-11-13 04:31] LABS: ABG Base Excess 5.9 MMOL/L (-2.5-2.5); ABG HCO3 29.8 MMOL/L (20-26); ABG Oxygen Saturation 99.7 % (95-100); ABG PCO2 31.9 MM HG (35-48); ABG PH 7.556 (7.35-7.45); ABG TCO2 26.2 MMOL/L (23-27)
[2020-11-13 04:39] LABS: Platelet Count 56 T/CUMM (130-400)
[2020-11-13 04:45] LABS: Hypochromasia 1+; Microcytosis 1+; Platelet Estimate Decreased
[2020-11-13 06:58] LABS: Calcium 7.9 MG/DL (8.5-10.1); Osmolality,Calculated 266.7 MOS/KG (273-304)
[2020-11-13] MEDS: DEXTROSE 10% 1,000 ML IV SCH (07:23)
[2020-11-13] MEDS: TOLTERODINE 2 MG TABLET PO SCH ×2 (08:24→20:40)
[2020-11-13] MEDS: ISOSORBIDE MONONITRATE 20 MG TABLET PO SCH ×2 (08:24→20:40)
[2020-11-13] MEDS: FAMOTIDINE 20 MG TABLET PO SCH (08:24)
[2020-11-13] MEDS: MULTIVITAMIN (BEROCCA) TABLET PO SCH (08:24)
[2020-11-13] MEDS: CYPROHEPTADINE 4 MG TABLET PO SCH ×2 (08:24→20:40)
[2020-11-13] MEDS: FLUoxetine 20 MG CAPSULE PO SCH (08:25)
[2020-11-13] MEDS: SODIUM CHLORIDE 0.9% 1,000 ML IV SCH (10:19)
[2020-11-13] MEDS: ERTAPENEM 500 MG in SODIUM CHLORIDE 0.9% 100 ML IV SCH (18:29)
[2020-11-14] MEDS: DEXTROSE 10% 1,000 ML IV SCH
[2020-11-14 04:33] LABS: ABG Base Excess 5.5 MMOL/L (-2.5-2.5); ABG HCO3 28.9 MMOL/L (20-26); ABG Oxygen Saturation 67.5 % (95-100); ABG PCO2 43.3 MM HG (35-48); ABG PH 7.449 (7.35-7.45)
[2020-11-14 04:37] LABS: ABG PO2 33.9 MM HG (80-95)
[2020-11-14 04:45] LABS: Eosinophils % 0.5 % (0.00-10.9); Hematocrit 24.2 VOL% (35.7-47.0); Hemoglobin 8.1 GM/DL (12.0-16.0); Immature Granulocytes % 0.8 %; Immature Granulocytes Absolute 0.03 #; Lymphocytes # 0.3 10*3/uL (1.4-4.0); Lymphocytes % 7.7 % (21.3-54.2); Mean Corpuscular HGB Conc 33.5 GM/DL (32-36); Mean Platelet Volume 12.2 FL (9.6-12.0); Monocytes % 10.7 % (1.7-12.7); Neutrophils % 80.3 % (38.7-73.9); Platelet Count 52 T/CUMM (130-400); Red Blood Count 2.52 MC/CUMM (3.8-5.5); White Blood Count 3.7 T/CUMM (4-12)
[2020-11-14 05:02] LABS: Calcium 7.6 MG/DL (8.5-10.1); Osmolality,Calculated 267.5 MOS/KG (273-304); Potassium 3.6 MMOL/L (3.5-5.1)
[2020-11-14 05:11] LABS: Band Neutrophils 1 % (0-10); Eosinophils 1 % (0-10); Hypochromasia Slight; Lymphocytes 9 % (20-55); Platelet Estimate Decreased; Segmented Neutrophils 84 % (50-85)
[2020-11-14 05:12] LABS: Total Cells Counted 100
[2020-11-14 05:15] LABS: ABG Base Excess 4.9 MMOL/L (-2.5-2.5); ABG HCO3 28.8 MMOL/L (20-26); ABG Oxygen Saturation 99.2 % (95-100); ABG PCO2 37.4 MM HG (35-48); ABG TCO2 26.3 MMOL/L (23-27)
[2020-11-14] MEDS ORDERED: SODIUM PHOSPHATE INJ 30 MMOL in SODIUM CHLORIDE 0.9% 250 ML IV ONE (05:42)
[2020-11-14] MEDS: CYPROHEPTADINE 4 MG TABLET PO SCH ×2 (08:10→20:09)
[2020-11-14] MEDS: TOLTERODINE 2 MG TABLET PO SCH ×2 (08:10→20:09)
[2020-11-14] MEDS: ISOSORBIDE MONONITRATE 20 MG TABLET PO SCH ×2 (08:10→20:09)
[2020-11-14] MEDS: FLUoxetine 20 MG CAPSULE PO SCH (08:10)
[2020-11-14] MEDS: MULTIVITAMIN (BEROCCA) TABLET PO SCH (08:10)
[2020-11-14] MEDS: FAMOTIDINE 20 MG TABLET PO SCH (08:10)
[2020-11-14] MEDS: SODIUM CHLORIDE 0.9% 1,000 ML IV SCH (09:05)
[2020-11-14] MEDS: hydrALAZINE 20 MG/1 ML VIAL IV PRN (09:09)
[2020-11-14] MEDS: FLUCONAZOLE 40 MG/ML 35 ML/BOTTLE PO SCH (11:57)
[2020-11-15 04:34] LABS: ABG Base Excess 1.4 MMOL/L (-2.5-2.5); ABG HCO3 28.5 MMOL/L (20-26); ABG PCO2 61.7 MM HG (35-48); ABG PH 7.283 (7.35-7.45); ABG PO2 274.7 MM HG (80-95); ABG TCO2 30.4 MMOL/L (23-27)
[2020-11-15 04:43] LABS: Eosinophils % 0.3 % (0.00-10.9); Hematocrit 23.3 VOL% (35.7-47.0); Hemoglobin 7.3 GM/DL (12.0-16.0); Immature Granulocytes Absolute 0.03 #; Lymphocytes # 0.2 10*3/uL (1.4-4.0); Lymphocytes % 7.6 % (21.3-54.2); Mean Corpuscular HGB Conc 31.3 GM/DL (32-36); Mean Platelet Volume 10.8 FL (9.6-12.0); Monocytes % 13.5 % (1.7-12.7); Neutrophils % 77.6 % (38.7-73.9); Platelet Count 55 T/CUMM (130-400); Red Blood Count 2.33 MC/CUMM (3.8-5.5); Red Cell Distribution Width 14.5 % (9.3-17.3)
[2020-11-15 05:00] LABS: Calcium 7.1 MG/DL (8.5-10.1); Osmolality,Calculated 269.5 MOS/KG (273-304); Potassium 3.5 MMOL/L (3.5-5.1)
[2020-11-15 05:20] LABS: Hypochromasia 1+; Lymphocytes 7 % (20-55); Microcytosis 1+; Ovalocytes Slight; Segmented Neutrophils 85 % (50-85); Total Cells Counted 100
[2020-11-15 05:21] LABS: Platelet Estimate Decreased
[2020-11-15] MEDS: DEXTROSE 10% 1,000 ML IV SCH (05:32)
[2020-11-15] MEDS: MULTIVITAMIN (BEROCCA) TABLET PO SCH (08:34)
[2020-11-15] MEDS: TOLTERODINE 2 MG TABLET PO SCH ×2 (08:34→21:38)
[2020-11-15] MEDS: FAMOTIDINE 20 MG TABLET PO SCH (08:35)
[2020-11-15] MEDS: SODIUM CHLORIDE 0.9% 1,000 ML IV SCH (08:35)
[2020-11-15] MEDS: FLUoxetine 20 MG CAPSULE PO SCH (08:35)
[2020-11-15] MEDS: FLUCONAZOLE 40 MG/ML 35 ML/BOTTLE PO SCH (08:35)
[2020-11-15] MEDS: ISOSORBIDE MONONITRATE 20 MG TABLET PO SCH ×2 (08:35→21:39)
[2020-11-15] MEDS: CYPROHEPTADINE 4 MG TABLET PO SCH ×2 (08:35→21:39)
[2020-11-15] MEDS ORDERED: SODIUM CHLORIDE 0.9% 1,000 ML IV PRN (12:00)
[2020-11-15 12:34] LABS: ABG Base Excess 1.9 MMOL/L (-2.5-2.5); ABG HCO3 25.9 MMOL/L (20-26); ABG PO2 58.7 MM HG (80-95); ABG TCO2 30.3 MMOL/L (23-27)
[2020-11-15 12:36] LABS: ABG PCO2 81.3 MM HG (35-48); ABG PH 7.197 (7.35-7.45)
[2020-11-15] MEDS: ALBUTEROL/IPRATROPIUM 3 ML NEB RESP TX SCH ×2 (13:21→19:00)
[2020-11-15] MEDS: hydrALAZINE 20 MG/1 ML VIAL IV PRN (13:50)
[2020-11-15 13:55] LABS: ABG Base Excess 3.8 MMOL/L (-2.5-2.5); ABG HCO3 27.9 MMOL/L (20-26); ABG Oxygen Saturation 99.5 % (95-100); ABG PCO2 62.2 MM HG (35-48); ABG PH 7.308 (7.35-7.45); ABG TCO2 29.5 MMOL/L (23-27)
[2020-11-15 22:26] LABS: ABG Base Excess 3.5 MMOL/L (-2.5-2.5); ABG HCO3 27.6 MMOL/L (20-26); ABG Oxygen Saturation 99.4 % (95-100); ABG PCO2 55.2 MM HG (35-48); ABG PH 7.345 (7.35-7.45)
[2020-11-16] MEDS: ALBUTEROL/IPRATROPIUM 3 ML NEB RESP TX SCH ×4 (00:14→19:05)
[2020-11-16 01:37] LABS: ABG Base Excess 3.3 MMOL/L (-2.5-2.5); ABG HCO3 27.4 MMOL/L (20-26); ABG Oxygen Saturation 98.3 % (95-100); ABG PH 7.332 (7.35-7.45); ABG TCO2 28.1 MMOL/L (23-27)
[2020-11-16] MEDS: hydrALAZINE 20 MG/1 ML VIAL IV PRN (03:19)
[2020-11-16 03:55] LABS: ABG Base Excess 3.3 MMOL/L (-2.5-2.5); ABG HCO3 27.4 MMOL/L (20-26); ABG Oxygen Saturation 99.1 % (95-100); ABG PCO2 51.3 MM HG (35-48); ABG PH 7.366 (7.35-7.45); ABG TCO2 27.3 MMOL/L (23-27)
[2020-11-16 04:16] LABS: Calcium 7.2 MG/DL (8.5-10.1); Osmolality,Calculated 273.1 MOS/KG (273-304); Potassium 3.3 MMOL/L (3.5-5.1)
[2020-11-16 04:28] LABS: Eosinophils % 0.3 % (0.00-10.9); Hematocrit 26.3 VOL% (35.7-47.0); Hemoglobin 8.6 GM/DL (12.0-16.0); Immature Granulocytes % 0.3 %; Immature Granulocytes Absolute 0.01 #; Lymphocytes # 0.1 10*3/uL (1.4-4.0); Lymphocytes % 4.2 % (21.3-54.2); Mean Corpuscular HGB Conc 32.7 GM/DL (32-36); Mean Platelet Volume 10.2 FL (9.6-12.0); Neutrophils % 86.2 % (38.7-73.9); Platelet Count 50 T/CUMM (130-400); Red Blood Count 2.71 MC/CUMM (3.8-5.5); Red Cell Distribution Width 15.4 % (9.3-17.3); White Blood Count 3.1 T/CUMM (4-12)
[2020-11-16 07:08] LABS: Anisocytosis 1+; Band Neutrophils 21 % (0-10); Lymphocytes 5 % (20-55); Macrocytosis Slight; Platelet Estimate Decreased; Segmented Neutrophils 66 % (50-85); Total Cells Counted 100
[2020-11-16] MEDS: DEXTROSE 10% 1,000 ML IV SCH (07:09)
[2020-11-16] MEDS: TOLTERODINE 2 MG TABLET PO SCH ×2 (08:33→21:51)
[2020-11-16] MEDS: FAMOTIDINE 20 MG TABLET PO SCH (08:33)
[2020-11-16] MEDS: CYPROHEPTADINE 4 MG TABLET PO SCH ×2 (08:33→21:52)
[2020-11-16] MEDS: FLUCONAZOLE 40 MG/ML 35 ML/BOTTLE PO SCH (08:33)
[2020-11-16] MEDS: ISOSORBIDE MONONITRATE 20 MG TABLET PO SCH ×2 (08:33→21:51)
[2020-11-16] MEDS: MULTIVITAMIN (BEROCCA) TABLET PO SCH (08:33)
[2020-11-16] MEDS: FLUoxetine 20 MG CAPSULE PO SCH (08:33)
[2020-11-16] MEDS: SODIUM CHLORIDE 0.9% 1,000 ML IV SCH (08:42)
[2020-11-17] MEDS: ALBUTEROL/IPRATROPIUM 3 ML NEB RESP TX SCH ×4 (00:02→19:35)
[2020-11-17 04:17] LABS: ABG Base Excess 4.4 MMOL/L (-2.5-2.5); ABG Oxygen Saturation 98.1 % (95-100); ABG PH 7.283 (7.35-7.45); ABG PO2 121.9 MM HG (80-95); ABG TCO2 34.1 MMOL/L (23-27); Allen Test Positive; Pt O2 Delivery Device Other
[2020-11-17 04:24] LABS: ABG PCO2 69.2 MM HG (35-48)
[2020-11-17 05:30] VITALS: BP 152/57
[2020-11-17 05:40] LABS: Eosinophils % 0.9 % (0.00-10.9); Hematocrit 25.8 VOL% (35.7-47.0); Hemoglobin 8.2 GM/DL (12.0-16.0); Immature Granulocytes % 0.6 %; Immature Granulocytes Absolute 0.02 #; Lymphocytes # 0.2 10*3/uL (1.4-4.0); Mean Corpuscular HGB Conc 31.8 GM/DL (32-36); Mean Corpuscular Volume 98.9 FL (87-102); Mean Platelet Volume 10.9 FL (9.6-12.0); Monocytes % 8.7 % (1.7-12.7); Neutrophils % 82.8 % (38.7-73.9); Red Blood Count 2.61 MC/CUMM (3.8-5.5); Red Cell Distribution Width 16.3 % (9.3-17.3); White Blood Count 3.5 T/CUMM (4-12)
[2020-11-17 05:52] LABS: Platelet Count 53 T/CUMM (130-400)
[2020-11-17 06:04] LABS: Calcium 7.7 MG/DL (8.5-10.1); Osmolality,Calculated 277.2 MOS/KG (273-304)
[2020-11-17 06:24] LABS: Anisocytosis 2+; Band Neutrophils 26 % (0-10); Lymphocytes 5 % (20-55); Platelet Estimate Decreased; Segmented Neutrophils 62 % (50-85); Total Cells Counted 100
[2020-11-17 06:25] LABS: Macrocytosis Slight
[2020-11-17] MEDS: MEROPENEM 500 MG in SODIUM CHLORIDE 0.9% 100 ML IV SCH ×2 (09:53→21:15)
[2020-11-17] MEDS: CYPROHEPTADINE 4 MG TABLET PO SCH ×2 (09:58→21:17)
[2020-11-17] MEDS: MULTIVITAMIN (BEROCCA) TABLET PO SCH (09:59)
[2020-11-17] MEDS: FLUoxetine 20 MG CAPSULE PO SCH (09:59)
[2020-11-17] MEDS: TOLTERODINE 2 MG TABLET PO SCH ×2 (09:59→21:17)
[2020-11-17] MEDS: ISOSORBIDE MONONITRATE 20 MG TABLET PO SCH ×2 (09:59→21:17)
[2020-11-17] MEDS: FAMOTIDINE 20 MG TABLET PO SCH (10:00)
[2020-11-17] MEDS: SODIUM CHLORIDE 0.9% 1,000 ML IV SCH (10:28)
[2020-11-17 10:29] LABS: ABG Base Excess 2.9 MMOL/L (-2.5-2.5); ABG PCO2 58.9 MM HG (35-48); ABG PH 7.319 (7.35-7.45); ABG PO2 77.5 MM HG (80-95); ABG TCO2 27.8 MMOL/L (23-27); Allen Test Positive; Pt O2 Delivery Device BIPAP
[2020-11-17] MEDS ORDERED: CLORAZEPATE 3.75 MG TABLET PO PRN (12:41)
[2020-11-17] MEDS: FLUCONAZOLE 40 MG/ML 35 ML/BOTTLE PO SCH (16:53)
[2020-11-18] MEDS: ALBUTEROL/IPRATROPIUM 3 ML NEB RESP TX SCH ×2 (00:06→07:29)
[2020-11-18] MEDS: MULTIVITAMIN (BEROCCA) TABLET PO SCH (08:53)
[2020-11-18] MEDS: CYPROHEPTADINE 4 MG TABLET PO SCH (09:50)
[2020-11-18] MEDS: FLUoxetine 20 MG CAPSULE PO SCH (09:50)
[2020-11-18] MEDS: FLUCONAZOLE 40 MG/ML 35 ML/BOTTLE PO SCH (09:51)
[2020-11-18] MEDS: ISOSORBIDE MONONITRATE 20 MG TABLET PO SCH (09:51)
[2020-11-18] MEDS: FAMOTIDINE 20 MG TABLET PO SCH (09:51)
[2020-11-18] MEDS: TOLTERODINE 2 MG TABLET PO SCH (09:51)
[2020-11-18] MEDS: SODIUM CHLORIDE 0.9% 1,000 ML IV SCH (11:08)
[2020-11-18] MEDS ORDERED: MEROPENEM 500 MG in SODIUM CHLORIDE 0.9% 100 ML IV SCH (22:00)
== END 2020-11-18 12:25 | disposition hospice, home (50) | DRG 689 ==
LOC: N.ED 10:13 → N.EDINP 15:08 → SUATTDRO 15:08 → INTOOBSV 15:08 → N.5E 16:29 → SUATTDRO 11-08 09:23 → N.CC 11-08 10:29 → N.3E 11-16 15:30 → N.ICU 11-17 06:53
PROVIDERS: ADMIT Family Medicine; ATTEND Internal Medicine
PROC: EGDWPEG (ICD-10-PCS; 2020-11-12 11:35)